=== PATIENT | male | born 1955 | race Caucasian/White ===

== ENCOUNTER 2022-08-07 17:18 | Emergency (ER) | payer BC, SELFPAY ==
[2022-08-07 17:27] VITALS: BP 122/62; PULSE 69; RESP 20; TEMP 36.7; O2SAT 97; BMI 31.8
--- NOTE | 2022-08-07 17:36 | XR_ITS ---
[address] [address] Patient Name: MALOU DUBON MRN: [id number] date: 1955 Sex: M Assigned Patient Location: ER Current Patient Location: ER Accession/Order Number: [id number] Exam Date: 08/07/2022 18:20 Report Date: 08/07/2022 18:45 At the request of: SHEFALI STRICKLAND Procedure: XR tibia fibula RT 2V EXAM: XR tibia fibula RT 2V HISTORY: Pain from changing a tire COMPARISON: None. TECHNIQUE: 4 views FINDINGS: No osseous lesion, fracture, dislocation or subluxation. Joint spaces are unremarkable for patient's age. No visualized effusion. No visualized soft tissue edema. IMPRESSION: Normal x-rays Electronically authenticated by: ERICK PARISI Date: 08/07/2022 18:45
--- NOTE | 2022-08-07 18:07 | ED_ITS ---
HPI - Extremity Injury (Lower) General Chief Complaint: Extremity Injury, Lower Stated Complaint: POSS BROKEN LEG Time Seen by Provider: 08/07/22 18:06 Source: patient Mode of arrival: Wheelchair Limitations: no limitations History of Present Illness HPI Narrative: Patient presents to emergency department complaining of right lower leg pain. He states he was putting all his weight on his right lower leg trying to change a tire when he fell a snap to the medial mid calf. He states in stating he has been able to put any weight on it he heard a snap and has a lot of pain when he hyperflexed his his foot. Denies any paresthesias. He has not taking anything at home for pain. He denies any weakness. He's never had any injury like this before. Related Data Home Medications Medication Instructions Recorded Confirmed doxycycline hyclate 100 mg capsule 100 mg PO Q24H 08/07/22 08/07/22 fluoxetine 20 mg tablet 20 mg PO DAILY 08/07/22 08/07/22 metoprolol tartrate 50 mg tablet 50 mg PO DAILY 08/07/22 08/07/22 topiramate 50 mg tablet 50 mg PO .night time 08/07/22 08/07/22 warfarin 5 mg tablet 5 mg PO DAILY 08/07/22 08/07/22 Allergies Allergy/AdvReac Type Severity Reaction Status Date / Time Unable to Assess Allergy Verified 08/07/22 17:27 Review of Systems ROS Narrative Unless otherwise stated in this report or unable to obtain because of the patient's clinical or mental status as evidenced by medical record, the patient's positive and negative responses for review of systems for constitutional, eyes, ENT, cardiovascular, respiratory, gastrointestinal, neurological, , musculoskeletal, and integument systems and related systems to the presenting problem are either stated in the history of present illness or were not pertinent or were negative for the symptoms and/or complaints related to the presenting medical problem. [facility] Social History Smoking status: Former smoker Exam Narrative Exam Narrative: Vital signs reviewed and nurse's notes. The patient is not hypoxic. General: Alert, no acute distress, patient resting comfortably Skin: warm, intact, no pallor noted Head: Normocephalic, atraumatic Eye: Normal conjunctiva Respiratory: No acute distress Musculoskeletal: No evidence of deformity to the R knee. There is Mild amount of swelling. There is no ecchymosis. No erythema or warmth noted. DP and PT pulses are intact 2+. Normal sensation, normal capillary refill less than 2 seconds. There is no cyanosis or mottling noted. The patient Does not have any tenderness to of the right knee. The patient has no laxity with varus or valgus stressing. The patient has negative anterior drawer and Reynaldo testing. The patient was able to flex and extend although with pain. Patient was able to extend leg off the cart without difficulty. No tenderness noted to the 5th MT, midfoot, ankle or proximal fibular area. There is no pain with calcaneal squeeze, achilles tendon is intact and no defect is palpated. There is tenderness to palpation to the mid over the medial mid gastrocnemius muscle. No cough asymmetry, range of motion limited by pain. The patient has no pelvic instability. The patient has no shortening or rotation noted to the bilateral lower extremities. Neurological: alert and orient x4, normal sensory and motor observed. Psychiatric: Cooperative Constitutional Vital Signs - 24 hr 08/07/22 17:27 Temperature 98.1 F Pulse Rate [Monitor] 69 Respiratory Rate 20 Blood Pressure [Right Arm] 122/62 H Pulse Oximetry 97 Oxygen Delivery Method Room Air Course Vital Signs Vital signs: Vital Signs Temperature 98.1 F 08/07/22 17:27 Pulse Rate 69 08/07/22 17:27 Respiratory Rate 20 08/07/22 17:27 Blood Pressure 122/62 H 08/07/22 17:27 Pulse Oximetry 97 08/07/22 17:27 Oxygen Delivery Method Room Air 08/07/22 17:27 Temperature 98.1 F 08/07/22 17:27 Pulse Rate 69 08/07/22 17:27 Respiratory Rate 20 08/07/22 17:27 Blood Pressure 122/62 H 08/07/22 17:27 Pulse Oximetry 97 08/07/22 17:27 Oxygen Delivery Method Room Air 08/07/22 17:27 MDM - Extremity Injury (Lower) MDM Narrative Medical decision making narrative: Patient had tibia-fibula of the right lower extremity done and is negative interpreted by me. Patient was placed in a compression wrap and was advised to use crutches. History and exam are consistent with the gastrocnemius muscle strain versus tear. Patient was given a prescription for [place]. He was given 1 more: The emergency department and it helped his symptoms. He will follow up with podiatry, primary care doctor, and orthopedic. He is to return with any other problems or concerns. At this time the patient is without objective evidence of an acute process requiring hospitalization or inpatient management. The patient has remained hemodynamically stable. No additional indication for emergent studies at this time. I answered all questions. Discussed discharge instructions including standard anticipatory guidance and what should prompt a return to the emergency department, including if they get worse are not getting better or develops any new or concerning symptoms. I've given them specific time frame in which to follow-up, and who to follow-up with. The patient demonstrates understanding. Patient is nontoxic and stable for discharge with outpatient follow-up. This note was created with the assistance of a speech recognition program. Although the intention is to generate documents that actually reflects the content of the visit, no guarantees can be provided that every mistake has been identified and corrected by editing. Discharge Plan Discharge Chief Complaint: Extremity Injury, Lower Clinical Impression: Gastrocnemius muscle rupture Patient Disposition: Home, Self-Care Time of Disposition Decision: 18:57 Condition: Good Mode of Transportation: Private Vehicle Prescriptions / Home Meds: No Action doxycycline hyclate 100 mg capsule 100 mg PO Q24H fluoxetine 20 mg tablet 20 mg PO DAILY metoprolol tartrate 50 mg tablet 50 mg PO DAILY topiramate 50 mg tablet 50 mg PO .night time warfarin 5 mg tablet 5 mg PO DAILY Instructions: Muscle Strain (ED) Stand Alone Forms: Portal Instructions Referrals: Bailey Hines MD [Primary Care Provider] - 1 week Rubio Valdovinos MD [Physician] - 1 week Follow Up Appointments: ORTHO Discharge Date/Time: 08/07/22 19:54
[2022-08-07] MEDS: HYDROCODONE/ACETAMINOPHEN 5-325 MG TABLET 1 TAB PO (18:37)
[2022-08-07 19:50] VITALS: BP 118/61; PULSE 62; RESP 18; O2SAT 97
== END 2022-08-07 19:54 | disposition home or self-care (01) ==
PROVIDERS: Emergency Provider Emergency Medicine; PCP Specialist
DX: S86.811A Strain of other muscle(s) and tendon(s) at lower leg level, right leg, initial encounter (principal); X50.9XXA Other and unspecified overexertion or strenuous movements or postures, initial encounter; Z87.891 Personal history of nicotine dependence; Z79.01 Long term (current) use of anticoagulants; Z79.899 Other long term (current) drug therapy
CPT/HCPCS: 73590; 99283

== ENCOUNTER 2022-08-10 18:34 | Outpatient (RCR) | payer BC, MEDICAID, SELFPAY | END 2022-09-03 23:59 | disposition home or self-care (01) | LOC: MM 18:34 | PROVIDERS: PCP Internal Medicine; Visit Provider Internal Medicine | DX: Z51.81 Encounter for therapeutic drug level monitoring (principal); Z79.01 Long term (current) use of anticoagulants ==

== ENCOUNTER 2022-09-09 09:53 | Outpatient (RCR) | payer BC, MEDICAID, SELFPAY | END 2022-10-04 17:07 | disposition home or self-care (01) | LOC: MM 09:53 | PROVIDERS: PCP Internal Medicine; Visit Provider Internal Medicine | DX: Z51.81 Encounter for therapeutic drug level monitoring (principal); Z79.01 Long term (current) use of anticoagulants ==

== ENCOUNTER 2022-10-05 09:36 | Outpatient (RCR) | payer BC, MEDICAID, SELFPAY | END 2022-11-04 17:41 | disposition home or self-care (01) | LOC: MM 09:36 | PROVIDERS: PCP Internal Medicine; Visit Provider Internal Medicine | DX: Z51.81 Encounter for therapeutic drug level monitoring (principal); Z79.01 Long term (current) use of anticoagulants | CPT/HCPCS: 85610; G0463 ==

== ENCOUNTER 2022-11-05 09:04 | Outpatient (RCR) | payer MEDICARE, MEDICAID, SELFPAY | END 2022-12-03 16:59 | disposition home or self-care (01) | LOC: MM 09:04 | PROVIDERS: PCP Internal Medicine; Visit Provider Internal Medicine | DX: Z51.81 Encounter for therapeutic drug level monitoring (principal); Z79.01 Long term (current) use of anticoagulants | CPT/HCPCS: 85610; G0463 ==

== ENCOUNTER 2022-12-06 02:59 | Outpatient (RCR) | payer MEDICARE, MEDICAID, SELFPAY | END 2023-01-04 17:45 | disposition home or self-care (01) | LOC: MM 02:59 | PROVIDERS: PCP Internal Medicine; Visit Provider Internal Medicine | DX: Z51.81 Encounter for therapeutic drug level monitoring (principal); Z79.01 Long term (current) use of anticoagulants ==

== ENCOUNTER 2023-01-05 00:26 | Outpatient (RCR) | payer MEDICARE, MEDICAID, SELFPAY | END 2023-02-03 16:51 | disposition home or self-care (01) | LOC: MM 00:26 | PROVIDERS: PCP Internal Medicine; Visit Provider Internal Medicine | DX: Z51.81 Encounter for therapeutic drug level monitoring (principal); Z79.01 Long term (current) use of anticoagulants ==

== ENCOUNTER 2023-02-04 09:37 | Outpatient (RCR) | payer MEDICARE, MEDICAID, SELFPAY | END 2023-03-04 15:20 | disposition home or self-care (01) | LOC: MM 09:37 | PROVIDERS: PCP Internal Medicine; Visit Provider Internal Medicine | DX: Z51.81 Encounter for therapeutic drug level monitoring (principal); Z79.01 Long term (current) use of anticoagulants ==

== ENCOUNTER 2023-03-07 02:05 | Outpatient (RCR) | payer MEDICARE, MEDICAID, SELFPAY | END 2023-04-06 17:04 | disposition home or self-care (01) | LOC: MM 02:05 | PROVIDERS: PCP Internal Medicine; Visit Provider Internal Medicine | DX: Z51.81 Encounter for therapeutic drug level monitoring (principal); Z79.01 Long term (current) use of anticoagulants ==

== ENCOUNTER 2023-04-07 00:52 | Outpatient (RCR) | payer MEDICARE, MEDICAID, SELFPAY | END 2023-05-05 17:33 | disposition home or self-care (01) | LOC: MM 00:52 | PROVIDERS: PCP Internal Medicine; Visit Provider Internal Medicine | DX: Z51.81 Encounter for therapeutic drug level monitoring (principal); Z79.01 Long term (current) use of anticoagulants ==

== ENCOUNTER 2023-05-06 03:39 | Outpatient (RCR) | payer MEDICARE, MEDICAID, SELFPAY | END 2023-06-03 14:16 | disposition home or self-care (01) | LOC: MM 03:39 | PROVIDERS: PCP Internal Medicine; Visit Provider Internal Medicine | DX: Z51.81 Encounter for therapeutic drug level monitoring (principal); Z79.01 Long term (current) use of anticoagulants ==

== ENCOUNTER 2023-06-06 03:30 | Outpatient (RCR) | payer MEDICARE, MEDICAID, SELFPAY | END 2023-07-05 18:04 | disposition home or self-care (01) | LOC: MM 03:30 | PROVIDERS: PCP Internal Medicine; Visit Provider Internal Medicine | DX: Z51.81 Encounter for therapeutic drug level monitoring (principal); Z79.01 Long term (current) use of anticoagulants ==

== ENCOUNTER 2023-07-06 04:39 | Outpatient (RCR) | payer MEDICARE, MEDICAID, SELFPAY | END 2023-08-05 12:01 | disposition home or self-care (01) | LOC: MM 04:39 | PROVIDERS: PCP Internal Medicine; Visit Provider Internal Medicine | DX: Z51.81 Encounter for therapeutic drug level monitoring (principal); Z79.01 Long term (current) use of anticoagulants ==

== ENCOUNTER 2023-07-26 08:20 | Outpatient (OUT) | payer MEDICARE, MEDICAID, SELFPAY ==
--- NOTE | 2023-07-26 08:26 | XR_ITS ---
The [address] [address] Patient Name: MALOU DUBON MRN: [id number] date: 1955 Sex: M Assigned Patient Location: [facility] Current Patient Location: Accession/Order Number: [id number] Exam Date: 07/26/2023 08:30 Report Date: 07/27/2023 05:36 At the request of: NIMESH BURT Procedure: XR ribs RT min 3V w CXR1V EXAMINATION: XR ribs RT min 3V w CXR1V HISTORY: Rib Pain ; chronic lower right rib pain COMPARISON: No relevant comparison available. FINDINGS: LUNGS: No significant pulmonary parenchymal abnormalities. PLEURA: No pneumothorax, effusion, or pleural thickening. MEDIASTINUM: No visible mass or adenopathy. CARDIAC: No cardiomegaly or cardiac silhouette abnormality. RIBS: No fracture or bone lesion. OTHER: Negative. XR/XR ribs RT min 3V w CXR1V IMPRESSION: 1. No appreciable rib abnormality to account for patient's symptoms. 2. No suspicious lung findings. Electronically authenticated by: ALECIA GOODSON Date: 07/27/2023 05:36
--- OUTSIDE RECORDS SUMMARY | 2023-07-26 08:26 | XMS_ITS | CCD ---
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:12 7 Normal [facility] Consultation Noteon 11-19-19 Consultation Note [id number]:127 Normal [facility] Consultation Noteon 10-24-19 Consultation Note [id number]:12 7 Normal [facility] Physician Referralon 023 Physician Referral [id number]:1 27 Normal [facility] Family Medicine Office/Clini c Noteon 08-17-2022 Family Medicine Office/Clinic Note HPI Staff Malou is a 66 year old male here for ER follow up/ Establish Establish Care: History: Any previous diagnosis: depression, HTN, migraines, asthma, Chronic sinusitis, PE bilateral lungs History of seeing any specialist: no When was your last doctors visit: Last provider: Dr Hines Any recent labs: Health Maintenance UTD: Colonoscopy: PSA: Acute: Current issues/complaints: ER 08/07/22 [place] follow up..was working on changing tire putting all off his weight on right leg and felt burning. pain 10/14 has been taking tylenol History of Present Illness pt presents today for ER follow up. he was putting all of his weight trying loosen a bolt and he felt a pop and had extreme pain and burning on Tuesday. ER did xray and sent him home. Review of Systems PHQ Score Initial Depression Screen Score: 0 ROS - Provider Constitutional: no fever, no chills, no sweats, no fatigue Respiratory: no shortness of breath, no cough, no orthopnea, no wheezing. Cardiovascular: no chest pain, no palpitations, no edema. Neurologic: no headache, no dizziness, no numbness, no weakness. extremities: right leg pain Physical Exam Vitals & Measurements HR: 55(Peripheral) BP: 122/80 SpO2: 97% HT: 64 in HT: 161.3 cm WT: 83.2 kg WT: 183.04 lb BMI: 31.98 General: alert, no acute distress ENMT: oral mucosa moist, no pharyngeal erythema or exudate Cardiovascular: regular rate and rhythm, normal peripheral perfusion Respiratory: Lungs CTA, respirations non labored Extremities: no deformity, moderate trauma, right calf pain, swelling and bruising noted, severe pain when lightly touching calf Neurological: oriented x 4, LOC appropriate for age, CN II-XII intact, motor strength equal & normal bilaterally, speech normal Assessment/Plan 1. Pressure injury of right calf, unstageable (L89.890: Pressure ulcer of other site, unstageable) pt was putting all of his weight on his right leg trying to get a bolt loose. he felt a pop then had severe pain and burning so much that he saw stars and almost passed out. [facility] ER did xray and sent him home with norco but he does not take narcotics due to history of drug use and alcoholism. Dr. Johnson assessed his leg and pain and called [facility] to rule out blood clot since pt is on warfarin and has been immobile. Would also like to have MRI done as well. Pt takes pt to [facility] at end of visit. will have him return to office in 1 week for follow up. 2. Right calf pain (M79.661: Pain in right lower leg) see above. 3. BMI 32.0-32.9,adult (Z68.32: Body mass index [BMI] 32.0-32.9, adult) bmi education complete Follow-up No qualifying data available Problem List/Past Medical History Ongoing BMI 32.0-32.9,adult Historical No qualifying data Medications Albuterol (Eqv-Ventolin HFA) 90 mcg/inh inhalation aerosol desonide Top 0.05% Crm doxycycline hyclate 100 mg Cap, 100 mg= 1 cap(s), Oral, Daily famotidine 20 mg Tab, 20 mg= 1 tab(s), Oral, Daily fluoxetine 20 mg oral tablet, 20 mg= 1 tab(s), Oral, Daily Metoprolol tartrate 50 mg Tab, 50 mg= 1 tab(s), Oral, Daily topiramate 50 mg Tab, 50 mg= 1 tab(s), Oral, Daily warfarin 5 mg Tab, 5 mg= 1 tab(s), Oral, Daily Allergies Ceftin (Rash) Social History Alcohol - No Risk, 08/10/2022 Household alcohol concerns: No., 08/10/2022 Substance Abuse Tobacco - No Risk, 08/10/2022 Former smoker, quit more than 30 days ago Tobacco Use:. Household tobacco concerns: No., 08/10/2022 Family History Alcoholism: Father. Cancer: Brother. Primary malignant neoplasm of bone: Mother. Normal [facility] Comment on above: Result Comment: Elec tronically Signed By: Evi Nair.alvina\Date and Time Signed: 08/17/22 09:12 EDT ED Note-Physicianon 08-15-19 ED Note-Physician Basic Information Time Seen: Roxana MONTANO Anish 08/10/2022 14:57 Chief Complaint pt. had R foot injury Tuesday while he was working on a car, xr at [facility] for fracture. states pain and swelling have increased. Dr. Johnson referred pt. here. History of Present Illness 66-year-old male comes to the ED for evaluation of right leg pain. He states a couple of days ago he was changing a light not on alcohol when he pressed up on his right foot and suddenly felt pain to the posterior right ankle area. He states he had negative x-rays performed at an outside ED. He followed up with his PCP today and is concerned for DVT. He does have a history of PE and is currently on anticoagulation, though reportedly he has been known to be noncompliant with this. He points to the Achilles area as the area of tenderness. He has difficulty with weightbearing he does have crutches that he has been utilizing. He has no acute weakness or paresthesias. No other prior treatments. He states he is taking Tylenol for pain. Review of Systems A 10 point review of systems is negative except as noted above. Medical and Surgical History: Reviewed and noted Social history: Lives at home Tobacco: Denies Physical Exam Vitals & Measurements T: 36.7 ?C(Oral) HR: 55(Peripheral) RR: 18 BP: 127/82 SpO2: 99% HT: 160 cm WT: 84 kg BMI: 32.81 Nurses notes and vital signs reviewed and patient is not hypoxic. General: The patient appears well, resting comfortably. Skin: Warm, dry. Head: Atraumatic. Neck: No JVD. Eye: Normal conjunctiva. Ears, Nose, Mouth, and Throat: Moist mucous membranes. Cardiovascular: Strong distal pulses. Chest wall: Respiratory: Respirations are nonlabored. Back: Normal range of motion. Musculoskeletal: Tenderness along the Achilles tendon without gross deformity. There is no soft tissue swelling ecchymosis or erythema. Perry test is normal with good movement of the tendon, however this does cause significant pain. He has strong distal pulses. Gastrointestinal: Urological: Neurological: Awake and alert. No focal deficits. Follows commands. Psychiatric: Cooperative. Medical Decision Making X-rays with no acute findings. Ultrasound is negative for evidence of DVT. His exam is concerning for Achilles tendon injury versus muscular calf injury. He already has crutches and is placed in a walking boot. At his request is given Ultram for pain. Overall he is neurovascular intact. There is no evidence of infectious process. He is discharged with orthopedic referral. Patient was encouraged to return to the ED if symptoms worsen or change. Assessment/Plan Achilles tendinitis (M76.60: Achilles tendinitis, unspecified leg) Ordered: tramadol, 50 mg = 1 tab(s), Oral, q6hr, PRN as needed for pain, Take one tab by mouth every six hours as needed for pain, X 3 day(s), # 15 tab(s), Refills(s) 0, Pharmacy: [facility], 160, cm, 08/10/22 15:02:00 EDT, Height/Length Dosing, 84, kg,... Orders: tramadol, 100 mg = 2 tab(s), Tab, Oral, Once, Stop date 08/10/22 15:08:00 EDT, STAT, Start date 08/10/22 15:08:00 EDT, 08/10/22 15:08:00 EDT Surgical Boot US LE Venous Duplex Right XR Ankle 3+ Views Right Medications Administered Given Ultram 50 mg Tab, 100 mg, Oral Disposition Plan Patient Discharge Condition Disposition: Discharged home Condition: Improved and stable Counseled: Patient and/or family were counseled to workup, results, treatment plan and follow-up recommendations Discharge Prescription List Prescriptions Ultram 50 mg Tab, 50 mg= 1 tab(s), Oral, q6hr, PRN Follow-up With [facility] Contact Information Flip Hidalgo In 3 days 08/13/[address] [place] [phone] Business (1) Additional Instructions: Patient Education Achilles Tendinitis Attestation Patient seen and evaluated by the physician assistant store director. Attending physician was present in the emergency department and supervised care. This visit was performed by both the physician and an APC. I performed all aspects of the MDM as documented. This report was transcribed using voice recognition software. Every effort was made to ensure accuracy, however, inadvertently computerized installation helper mistakes may be present. Appropriate healthcare PPE was used in evaluating this patient. The patient was placed in a mask. The healthcare provider was wearing mask, gloves, and utilizing proper hand hygiene. All equipment was properly cleansed. Problem List/Past Medical History Ongoing No qualifying data Historical No qualifying data Medications Inpatient No active inpatient medications Home Albuterol (Eqv-Ventolin HFA) 90 mcg/inh inhalation aerosol desonide Top 0.05% Crm doxycycline hyclate 100 mg Cap, 100 mg= 1 cap(s), Oral, Daily famotidine 20 mg Tab, 20 mg= 1 tab(s), Oral, Daily fluoxetine 20 mg oral tablet, 20 mg= 1 tab(s), Oral, Daily Metoprolol tartrate 50 mg Tab, 50 mg= 1 tab(s), Oral, Daily topiramat (more content not included)... Normal [facility] Comment on above: Result Comment: Elec tronically Signed By: Anish Schmidt PA-C\.br\Date and Time Signed: 08/10/22 16:36 EDT\.br\Electronically Co-Signed By: Denver Valadez DO\.br\Date and Time Co-Signed: 08/14/22 07:33 EDT Ambulatory Visit Summaryon 0 08-10-2022 Ambulatory Visit Summary MALOU DUBON :1955 Visit Date:08/10/2022 Ambulatory Visit Instructions Your Care Team Attending Physician - Evi Nair Primary Care Physician - Yogesh Johnson MD This Is Your Medications List albuterol (Albuterol (Eqv-Ventolin HFA) 90 mcg/inh inhalation aerosol) desonide topical (desonide Top 0.05% Crm) doxycycline (doxycycline hyclate 100 mg Cap) famotidine (famotidine 20 mg Tab) fluoxetine (fluoxetine 20 mg oral tablet) metoprolol (Metoprolol tartrate 50 mg Tab) topiramate (topiramate 50 mg Tab) warfarin (warfarin 5 mg Tab) Discharge Vitals Heart Rate (Peripheral) 55 Blood Pressure 122/80 Height 161.3 cm Height 64 in Weight 83.2 kg Weight 183.04 lb BMI 31.98 Medications What How Much When Instructions Unchanged albuterol (Albuterol (Eqv-Ventolin HFA) 90 mcg/ inh inhalation aerosol) Unchanged desonide topical (desonide Top 0.05% Crm) Unchanged doxycycline (doxycycline hyclate 100 mg Cap) 1 Capsules By Mouth Every day Unchanged famotidine (famotidine 20 mg Tab) 1 Tablets By Mouth Every day Unchanged fluoxetine (fluoxetine 20 mg oral tablet) 1 Tablets By Mouth Every day Unchanged metoprolol (Metoprolol tartrate 50 mg Tab) 1 Tablets By Mouth Every day Unchanged topiramate (topiramate 50 mg Tab) 1 Tablets By Mouth Every day Unchanged warfarin (warfarin 5 mg Tab) 1 Tablets By Mouth Every day Allergies Ceftin (Rash) [facility] Ambulatory Visit Summary MALOU DUBON :1955 Visit Date:08/10/2022 Ambulatory Visit Instructions Your Care Team Attending Physician - Evi Nair Primary Care Physician - Alex REINA, Yogesh Jackson. This Is Your Medications List albuterol (Albuterol (Eqv-Ventolin HFA) 90 mcg/inh inhalation aerosol) desonide topical (desonide Top 0.05% Crm) doxycycline (doxycycline hyclate 100 mg Cap) famotidine (famotidine 20 mg Tab) fluoxetine (fluoxetine 20 mg oral tablet) metoprolol (Metoprolol tartrate 50 mg Tab) topiramate (topiramate 50 mg Tab) warfarin (warfarin 5 mg Tab) Discharge Vitals Heart Rate (Peripheral) 55 Blood Pressure 122/80 Height 161.3 cm Height 64 in Weight 83.2 kg Weight 183.04 lb BMI 31.98 Medications What How Much When Instructions Unchanged albuterol (Albuterol (Eqv-Ventolin HFA) 90 mcg/ inh inhalation aerosol) Unchanged desonide topical (desonide Top 0.05% Crm) Unchanged doxycycline (doxycycline hyclate 100 mg Cap) 1 Capsules By Mouth Every day Unchanged famotidine (famotidine 20 mg Tab) 1 Tablets By Mouth Every day Unchanged fluoxetine (fluoxetine 20 mg oral tablet) 1 Tablets By Mouth Every day Unchanged metoprolol (Metoprolol tartrate 50 mg Tab) 1 Tablets By Mouth Every day Unchanged topiramate (topiramate 50 mg Tab) 1 Tablets By Mouth Every day Unchanged warfarin (warfarin 5 mg Tab) 1 Tablets By Mouth Every day Allergies Ceftin (Rash) Normal [facility] Consent for Treatmenton Consent for Treatment [id number]:12 7 Normal [facility] Discharge Instructionson Discharge Instructions [id number]#1.00CD:12 7 Normal [facility] ED Clinical Summaryon 2022 ED Clinical Summary [address] [address] ED Clinical Summary Person [facility] Age[facility] 66 Years : 1955 Sex: Male Language: Trinidadian PCP: Yogesh Johnson MD Marital Status: Visit Id: Visit Reason: Ankle pain-swelling; Foot pain-swelling; FOOT PAIN Speciality: Acuity: 4 Enc Type: Emergency Med Service: Emergency Arrival: 08/10/2022 14:52:37 Discharge: 08/10/2022 16:51:29 LOS: 000 01:59 Checkin: 08/10/2022 14:52:37 Checkout: 08/10/2022 16:51:29 Dispo Type: Home (Routine DC) EVENTS: Event Name Event Status Request Date/Time Start Date/Time Complete Date/Time Arrive Complete 08/10/2022 14:52:37 08/10/2022 14:52:37 08/10/2022 14:52:37 Document Home Meds Request 08/10/2022 14:52:37 Triage Complete 08/10/2022 14:52:37 08/10/2022 15:02:39 08/10/2022 15:02:39 Bed Assign Complete 08/10/2022 14:55:54 08/10/2022 14:55:54 08/10/2022 14:55:54 Dr Exam Complete 08/10/2022 14:55:54 08/10/2022 14:57:48 08/10/2022 14:57:48 RN Exam Complete 08/10/2022 14:55:54 08/10/2022 15:05:31 08/10/2022 15:05:31 Registration Complete 08/10/2022 14:57:48 08/10/2022 15:03:49 08/10/2022 15:03:49 Dr Exam Complete 08/10/2022 15:01:18 08/10/2022 15:01:18 08/10/2022 15:01:18 Reg Complete Request 08/10/2022 15:03:49 US Complete 08/10/2022 15:09:09 08/10/2022 15:18:40 08/10/2022 15:49:14 X-Ray Complete 08/10/2022 15:09:09 08/10/2022 15:49:26 08/10/2022 15:58:35 Meds Admin Complete 08/10/2022 15:09:09 08/10/2022 15:17:54 Wet Read Complete 08/10/2022 15:58:35 08/10/2022 16:14:40 08/10/2022 16:14:40 Patient Care Complete 08/10/2022 16:32:57 08/10/2022 16:50:07 Discharge Complete 08/10/2022 16:33:12 08/10/2022 16:51:34 08/10/2022 16:51:34 Transfer Complete 08/10/2022 16:51:34 08/10/2022 16:51:34 08/10/2022 16:51:34 ADDRESS: [facility] [id number] PHYS DOC NOTES: MEDICAL INFORMATION: Prescriptions Given: New Medications [facility], [address] [place] [id number], [phone] tramadol (Ultram 50 mg Tab) 1 Tablets By Mouth every 6 hours as needed as needed for pain for 3 Days. Take one tab by mouth every six hours as needed for pain. Refills: 0. PATIENT EDUCATION INFORMATION: Instructions: Achilles Tendinitis Follow up: With: Address: When: Flip Hidalgo [address] [place], [place] [id number] Business (1) In 3 days 08/13/2022 DIAGNOSIS: Achilles tendinitis Normal [facility] ED Patient Education Noteon 08-10-2022 ED Patient Education Note Orthopedics Achilles Tendinitis Achilles tendinitis is inflammation of the tough, cord-like band that attaches the lower leg muscles to the heel bone (Achilles tendon). This is usually caused by overusing the tendon and the ankle joint. Achilles tendinitis usually gets better over time with treatment and caring for yourself at home. It can take weeks or months to heal completely. What are the causes? This condition may be caused by: ? A sudden increase in exercise or activity, such as running. ? Doing the same exercises or activities, such as jumping, over and over. ? Not warming up calf muscles before exercising. ? Exercising in shoes that are worn out or not made for exercise. ? Having arthritis or a bone growth (spur) on the back of the heel bone. This can rub against the tendon and hurt it. ? Age-related wear and tear. Tendons become less flexible with age and are more likely to be injured. What are the signs or symptoms? Common symptoms of this condition include: ? Pain in the Achilles tendon or in the back of the leg, just above the heel. The pain usually gets worse with exercise. ? Stiffness or soreness in the back of the leg, especially in the morning. ? Swelling of the skin over the Achilles tendon. ? Thickening of the tendon. ? Trouble standing on tiptoe. How is this diagnosed? This condition is diagnosed based on your symptoms and a physical exam. You may have tests, including: ? X-rays. ? MRI. How is this treated? The goal of treatment is to relieve symptoms and help your injury heal. Treatment may include: ? Decreasing or stopping activities that caused the tendinitis. This may mean switching to low-impact exercises like biking or swimming. ? Icing the injured area. ? Doing physical therapy, including strengthening and stretching exercises. ? Taking NSAIDs, such as ibuprofen, to help relieve pain and swelling. ? Using supportive shoes, wraps, heel lifts, or a walking boot (air cast). ? Having surgery. This may be done if your symptoms do not improve after other treatments. ? Using high-energy shock wave impulses to stimulate the healing process (extracorporeal shock wave therapy). This is rare. ? Having an injection of medicines that help relieve inflammation (corticosteroids). This is rare. Follow these instructions at home: If you have an air cast: ? Wear the air cast as told by your health care provider. Remove it only as told by your health care provider. ? Loosen it if your toes tingle, become numb, or turn cold and blue. ? Keep it clean. ? If the air cast is not waterproof: ? Do not let it get wet. ? Cover it with a watertight covering when you take a bath or shower. Managing pain, stiffness, and swelling ? If directed, put ice on the injured area. To do this: ? If you have a removable air cast, remove it as told by your health care provider. ? Put ice in a plastic bag. ? Place a towel between your skin and the bag. ? Leave the ice on for 20 minutes, 2?3 times a day. ? Move your toes often to reduce stiffness and swelling. ? Raise (elevate) your foot above the level of your heart while you are sitting or lying down. Activity ? Gradually return to your normal activities as told by your health care provider. Ask your health care provider what activities are safe for you. ? Do not do activities that cause pain. ? Consider doing low-impact exercises, like cycling or swimming. ? Ask your health care provider when it is safe to drive if you have an air cast on your foot. ? If physical therapy was prescribed, do exercises as told by your health care provider or physical therapist. General instructions ? If directed, wrap your foot with an elastic bandage or other wrap. This can help to keep your tendon from moving too much while it heals. Your health care provider will show you how to wrap your foot correctly. ? Wear supportive shoes or heel lifts only as told by your health care provider. ? Take ijox-let-ymbggam and prescription medicines only as told by your health care provider. ? Keep all follow-up visits as told by your health care provider. This is important. Contact a health care provider if you: ? Have symptoms that get worse. ? Have pain that does not get better with medicine. ? Develop new, unexplained symptoms. ? Develop warmth and swelling in your foot. ? Have a fever. Get help right away if you: ? Have a sudden popping sound or sensation in your Achilles tendon followed by severe pain. ? Cannot move your toes or foot. ? Cannot put any weight on your foot. ? Your foot or toes become numb and look white or blue even after loosening your bandage or air cast. Summary ? Achilles tendinitis is inflammation of the tough, cord-like band that attaches the lower leg muscles to the heel bone (Achilles tendon). ? This condition is usually caused by overusing the tendon and the (more content not included)... Normal [facility] ED Patient Summaryon 023 ED Patient Summary [facility] [address] [place], [place] [address] Patient Discharge Instructions Person Information Name: MALOU DUBON Age: 66 Years Arrival Date: 08/10/2022 14:52:37 Discharge Diagnosis: Achilles tendinitis Primary Care Physician: Yogesh Johnson MD Provider Information Primary Provider: Denver Valadez DO Advanced Roving Carrier:Anish Schmidt PA-C The exam and treatment you received in the Emergency Department were for an urgent problem and are not intended as complete care. It is important that you follow up with a doctor, nurse practitioner, or physician?s assistant store director for ongoing care. If your symptoms become worse or you do not improve as expected and you are unable to reach your usual health care provider, you should return to the Emergency Department. We are available 24 hours a day. MALOU DUBON has been given the following list of patient education materials, prescriptions and follow-up instructions: Follow-up Instructions: With: Address: When: Flip Hidalgo [address] [place] [address] Business (1) In 3 days 08/13/2022 In the event that this physician does not participate in your insurance network, please consult with your insurance company to find a nearby participating provider. Patient Education Materials: Achilles Tendinitis A MESSAGE TO ALL PATIENTS REGARDING OPIOIDS PRESCRIPTION OPIOIDS: WHAT YOU NEED TO KNOW Prescription opioids can be used to help relieve rwdbsxwi-rt-otrvlj pain and are often prescribed following a surgery or injury, or for certain health conditions. These medications can be an important part of the treatment but also come with serious risks. It is important to work with your healthcare provider to make sure you are getting the safest, most effective care. WHAT ARE THE RISKS AND SIDE EFFECTS OF OPIOID USE? Prescription opioids carry serious risks of addiction and overdose, especially with prolonged use. An opioid overdose, often marked by slowed breathing, can cause sudden . The use of prescription opioids can have a number of side effects as well, even when taken as directed: ? Tolerance?meaning you might need to take more of the medication for the same pain relief ? Physical dependence?meaning you have symptoms of withdrawal when a medication is stopped ? Increased sensitivity to pain ? Constipation ? Nausea, vomiting, and dry mouth ? Sleepiness and dizziness ? Confusion ? Depression ? Low levels of testosterone that can result in lower sex drive, energy, and strength ? Itching and sweating RISKS ARE GREATER WITH: ? History of drug misuse, substance use disorder, or overdose ? Mental health conditions (such as depression or anxiety) ? Sleep apnea ? Older age (65 years and older) ? Avoid alcohol while taking prescription opioids. Also, unless specifically advised by your health care provider, medications to avoid include: ? Benzodiazepines (such as Xanax or Valium) ? Muscle relaxants (such as Soma or Flexeril) ? Hypnotics (such as Ambien or Lunesta) ? Other prescription opioids KNOW YOUR OPTIONS Talk to your health care provider about ways to manage your pain that don?t involve prescription opioids. Some of these options may actually work better and have fewer risks and side effects. Options may include: ? Pain relievers such as acetaminophen, ibuprofen, and naproxen ? Some medication that are also used for depression or seizures ? Physical therapy and exercise ? Cognitive behavioral therapy, a psychological, goal-directed approach, in which patients learn how to modify physical, behavioral, and emotional triggers of pain and stress. IF YOU ARE PRESCRIBED OPIOIDS FOR PAIN: ? Never take opioids in greater amounts or more often than prescribed. ? Follow up with your primary health care provider. o Work together to create a plan on how to manage your pain. o Talk about ways to help manage your pain that don?t involve prescription opioids. o Talk about any and all concerns and side effects. ? Help prevent misuse and abuse o Never sell or share prescription opioids. o Never use another person?s prescription opioids. ? Store prescription opioids in a secure place and out of reach of others (this may include visitors, children, friends, and family). ? Safely dispose of unused prescription opioids: Find your community drug take-back program or your pharmacy mail-back program, or flush them down the toilet, following guidance from the Food and Drug Administration (www.fda.gov/Drugs/Resour cesForYou). ? Visit www.cdc.gov/drugoverdose to learn about the risks of opioids abuse and overdose. ? If you believe you may be struggling with addiction, tell your health healthcare associate and ask for guidance or call [facility] National Helpline at 5-033-167-PSCA. m Source: Department of (more content not included)... Normal [facility] Pre-Arrival Noteon Pre-Arrival Note Pre-Arrival Summary Name: ulisses, Current Date: 08/10/2022 14:57:13 EDT Gender: Male Date of : Age: 66 Pre-Arrival Type: EMS ETA: 08/10/2022 14:51:00 EDT Primary Care Physician: Presenting Problem: leg pain Pre-Arrival User: Denver Valadez DO Referring Source: Location: [place] Completion Date/Time: 08/10/2022 14:22:00 [facility] Emergency Department Pre-Hospital Report Form ____ Vital Signs: pop in R calf, [facility] Xray negative, wrapped leg, now increased pain, supposed to be on coumadin (Hx of PE), needs US of calf, maybe repeat xray Pre-Hospital Report: Treatment in Route: Response to Treatment: Misc. Issues: Normal [facility] US LE Venous Duplex Righton 08-10-2022 US LE Venous Duplex Right Exam Date/Time: 08/10/2022 15:49 EDT Reason for Exam: History of DVT Report IMPRESSION: NO EVIDENCE OF VENOUS THROMBOSIS INVOLVING VISUALIZED DEEP VEINS OF THE RIGHT LEG. CLINICAL HISTORY: History of DVT. Right lower leg pain. COMMENT: On the right, the external iliac vein, greater saphenous vein, common femoral vein, deep femoral vein, femoral vein, and popliteal vein demonstrate spontaneous phasic venous flow, with augmentation, non-pulsatility, and compressibility every 2 cm. The right posterior tibial and peroneal veins of the deep venous system compress. The contralateral left common femoral vein demonstrates spontaneous phasic venous flow. Ordering Provider: Anish Schmidt FINAL REPORT Dictated: 08/10/2022 4:14 pm Isidoro Samuels M.D. Signed (Electronic Signature): 08/10/2022 4:14 pm Signed by: Isidoro Samuels M.D. Transcribed by: MAYDA Technologist: KENNA Johnson [facility] XR Ankle 3+ Views Righton XR Ankle 3+ Views Right Exam Date/Time: 08/10/2022 15:58 EDT Reason for Exam: Pain Report IMPRESSION: NO EVIDENCE OF FRACTURE OR DISLOCATION AT THE RIGHT ANKLE. CLINICAL HISTORY: Pain. Pain and swelling right ankle. COMMENT: 4 views. No joint space narrowing is noted at the right ankle. There is minimal hypertrophic spurring at the medial and lateral malleoli. No fracture nor dislocation is noted at the right ankle. There is a plantar heel spur. There is relatively mild soft tissue swelling at the right ankle, greatest medially. Ordering Provider: Anish Schmidt FINAL REPORT Dictated: 08/10/2022 4:16 pm Isidoro Samuels M.D. Signed (Electronic Signature): 08/10/2022 4:16 pm Signed by: Isidoro Samuels M.D. Transcribed by: MAYDA Technologist: GREG Technical Comments Radiation Dose: Ka,r in mGy = na DAP = na Normal [facility] CBC AUTO DIFFon 03-23-2022 BASO # 0.1 103/ul Normal 0.0-0.1 [facility] Comment on above: Performed By: #### U MICRO, ERUR #### [facility] [address] [address] [address] Gray Hunter Basophils/100 WBC (Bld) 0.9 % Normal 0.2-2.0 [facility] Comment on above: Performed By: #### U MICRO, ERUR #### [facility] [address] [place] [address] Dr. Gray Hunter EO # 0.2 103/ul Normal 0.0-0.7 [facility] Comment on above: Performed By: #### U MICRO, ERUR #### [facility] [address] [place] [address] Dr. Gray Hunter Eosinophils/100 WBC (Bld) 2.2 % Normal 0.9-7.0 [facility] Comment on above: Performed By: #### U MICRO, ERUR #### [facility] [address] [place] [address] Dr. Gray Hunter Erythrocyte distribution width (RBC) [Ratio] 13.3 % Normal 11.0-15.0 [facility] Comment on above: Performed By: #### U MICRO, ERUR #### [facility] [address] [place] [address] Dr. Gray Hunter Hematocrit (Bld) [Volume fraction] 40.3 % Critically low 42.0-54.0 [facility] Comment on above: Performed By: #### U MICRO, ERUR #### [facility] [address] [place] [address] Dr. Gray Hunter Hemoglobin (Bld) [Mass/Vol] 13.2 g/dL Critically low 14.0-18.0 [facility] Comment on above: Performed By: #### U MICRO, ERUR #### [facility] [address] [place] [address] Dr. Gray Hunter IG # 0.03 10e3/ul Normal 0.00-0.03 [facility] Comment on above: Performed By: #### U MICRO, ERUR #### [facility] [address] [place] [address] Dr. Gray Hunter IG % 0.4 % Normal 0.0-0.5 [facility] Comment on above: Performed By: #### U MICRO, ERUR #### [facility] [address] [place] [address] Dr. Gray Hunter LYMPH # 1.5 103/ul Normal 1.2-3.8 [facility] Comment on above: Performed By: #### U MICRO, ERUR #### [facility] [address] [place] [address] Dr. Gray Hunter Lymphocytes/100 WBC (Bld) 21.5 % Normal 20.5-60.0 [facility] Comment on above: Performed By: #### U MICRO, ERUR #### [facility] [address] [place] [address] Dr. Gray Hunter MANUAL DIFF REQ NO Normal [facility] Comment on above: Performed By: #### U MICRO, ERUR #### [facility] [address] [place] [address] Dr. Gray Hunter MCH (RBC) [Entitic mass] 27.8 pg Normal 25.9-34.0 [facility] Comment on above: Performed By: #### U MICRO, ERUR #### [facility] [address] [place] [address] Dr. Gray Hunter MCHC (RBC) [Mass/Vol] 32.8 g/dL Normal 29.9-35.2 [facility] Comment on above: Performed By: #### U MICRO, ERUR #### [facility] [address] [place] [address] Dr. Gray Hunter MCV (RBC) [Entitic vol] 84.8 fL Normal 80.0-94.0 [facility] Comment on above: Performed By: #### U MICRO, ERUR #### [facility] [address] [place] [address] Dr. Gray Hunter MONO # 0.6 103/ul Normal 0.3-0.8 [facility] Comment on above: Performed By: #### U MICRO, ERUR #### [facility] [address] [place] [address] Dr. Gray Hunter Monocytes/100 WBC (Bld) 8.7 % Normal 1.7-12.0 [facility] Comment on above: Performed By: #### U MICRO, ERUR #### [facility] [address] [address] [address] Gray Hunter NEUT # 4.5 103/ul Normal 1.4-6.5 [facility] Comment on above: Performed By: #### U MICRO, ERUR #### [facility] [address] [place] [address] Dr. Gray Hunter Neutrophils/100 WBC (Bld) 66.3 % Normal 43.0-75.0 [facility] Comment on above: Performed By: #### U MICRO, ERUR #### [facility] [address] [place] [address] Dr. Gray Hunter Platelet mean volume (Bld) [Entitic vol] 10.1 fL Normal 9.5-13.5 [facility] Comment on above: Performed By: #### U MICRO, ERUR #### [facility] [address] [place] [address] Dr. Gray Hunter PLT 258 103/ul Normal 150-450 [facility] Comment on above: Performed By: #### U MICRO, ERUR #### [facility] [address] [place] [address] Dr. Gray Hunter RBC 4.75 106/ul Normal 4.70-6.10 [facility] Comment on above: Performed By: #### U MICRO, ERUR #### [facility] [address] [place] [address] Dr. Gray Hunter WBC 6.8 103/ul Normal 4.0-11.0 [facility] Comment on above: Performed By: #### U MICRO, ERUR #### [facility] [address] [place] [address] Dr. Gray Hunter FREE T3on 03-23-2022 FREE T3 2.51 pg/mlL Normal 2.18-3.98 [facility] Comment on above: Performed By: #### T SH, LIPID, CMP, FT3 #### [facility] [address] [place] [address] Dr. Gray Hunter FREE T4on 03-23-2022 Free T4 [Mass/Vol] 0.77 ng/dL Normal 0.76-1.46 [facility] Comment on above: Performed By: #### U MICRO, ERUR #### [facility] [address] [address] [address] Gray Hunter LIPID PROFILEon 03-23-2022 CHOL-HDL RATIO NORM SEE BELOW Normal [facility] Comment on above: Result Comment: 3.3 - 4.4 LOW RISK 4.4 - 7.1 AVERAGE RISK 7.1 - 11.0 MODERATE RISK >11.0 HIGH RISK Performed By: #### T SH, LIPID, CMP, FT3 #### [facility] [address] [address] [address] Gray Hunter Cholesterol [Mass/Vol] 240 mg/dL Critically high <=200 [facility] Comment on above: Performed By: #### T SH, LIPID, CMP, FT3 #### [facility] [address] [address] [address] Gray Hunter Cholesterol in HDL [Mass/Vol] 45 mg/dL Normal 40-60 [facility] Comment on above: Performed By: #### T SH, LIPID, CMP, FT3 #### [facility] [address] [address] [address] Gray Hunter Cholesterol in LDL [Mass/Vol] 165.6 mg/dL Normal [facility] Comment on above: Performed By: #### T SH, LIPID, CMP, FT3 #### [facility] [address] [address] [address] Gray Hunter Cholesterol.total /Cholesterol in HDL [Mass ratio] 5.3 {ratio} Normal [facility] Comment on above: Performed By: #### T SH, LIPID, CMP, FT3 #### [facility] [address] [address] [address] Gray Hunter HDL NORMAL > or = 60 mg/dl - LO W CARDIOVASCULAR RISK <40 mg/dl - HIGH CARDIOVASCULAR RISK Normal [facility] Comment on above: Performed By: #### T SH, LIPID, CMP, FT3 #### [facility] [address] [address] [address] Gray Hunter LDL CALC NORMAL SEE BELOW Normal [facility] Comment on above: Result Comment: <100 mg/dl OPTIMAL 100 - 129 mg/dl NEAR OR ABOVE OPTIMAL 130 - 159 mg/dl BORDERLINE HIGH 160 - 189 mg/dl HIGH >190 mg/dl VERY HIGH Performed By: #### T SH, LIPID, CMP, FT3 #### [facility] [address] [address] [address] Gray Hunter Triglyceride [Mass/Vol] 147 mg/dL Normal <=150 [facility] Comment on above: Performed By: #### T SH, LIPID, CMP, FT3 #### [facility] [address] [address] [address] Gray Hunter VLDL CALC 29.4 mg/dL Normal [facility] Comment on above: Performed By: #### T SH, LIPID, CMP, FT3 #### [facility] [address] [address] [address] Gray Hunter PROF 14(COMP METB)on 023 Albumin [Mass/Vol] 3.5 g/dL Normal 3.4-5.0 [facility] Comment on above: Performed By: #### T SH, LIPID, CMP, FT3 #### [facility] [address] [address] [address] Gray Hunter Albumin/Globulin [Mass ratio] 1.0 {ratio} Normal [facility] Comment on above: Performed By: #### T SH, LIPID, CMP, FT3 #### [facility] [address] [address] [address] Gray Hunter ALP [Catalytic activity/Vol] 77 U/L Normal 46-116 [facility] Comment on above: Performed By: #### T SH, LIPID, CMP, FT3 #### [facility] [address] [address] [address] Gray Hunter ALT [Catalytic activity/Vol] 25 U/L Normal 16-63 [facility] Comment on above: Performed By: #### T SH, LIPID, CMP, FT3 #### [facility] [address] [address] [address] Gray Hunter Anion gap [Moles/Vol] 12.2 mmol/L Normal [facility] Comment on above: Performed By: #### T SH, LIPID, CMP, FT3 #### [facility] [address] [address] [address] Gray Hunter AST [Catalytic activity/Vol] 16 U/L Normal 15-37 [facility] Comment on above: Performed By: #### T SH, LIPID, CMP, FT3 #### [facility] [address] [address] [address] Gray Hunter Bilirubin [Mass/Vol] 0.3 mg/dL Normal 0.2-1.0 [facility] Comment on above: Performed By: #### T SH, LIPID, CMP, FT3 #### [facility] [address] [place] [address] Dr. Gray Hunter Calcium [Mass/Vol] 8.7 mg/dL Normal 8.5-10.1 [facility] Comment on above: Performed By: #### T SH, LIPID, CMP, FT3 #### [facility] [address] [place] [address] Dr. Gray Hunter Chloride [Moles/Vol] 106 mmol/L Normal 98-107 [facility] Comment on above: Performed By: #### T SH, LIPID, CMP, FT3 #### [facility] [address] [place] [address] Dr. Gray Hunter CO2 [Moles/Vol] 26.4 mmol/L Normal 21.0-32.0 [facility] Comment on above: Performed By: #### T SH, LIPID, CMP, FT3 #### [facility] [address] [place] [address] Dr. Gray Hunter Creatinine [Mass/Vol] 1.13 mg/dL Normal 0.70-1.30 [facility] Comment on above: Performed By: #### T SH, LIPID, CMP, FT3 #### [facility] [address] [place] [address] Dr. Gray Hunter EGFR-AF MEXICAN >60 Normal >=60 [facility] Comment on above: Performed By: #### T SH, LIPID, CMP, FT3 #### [facility] [address] [address] [address] Gray Hunter EGFR-NON AF MEXICAN >60 Normal >=60 [facility] Comment on above: Performed By: #### T SH, LIPID, CMP, FT3 #### [facility] [address] [address] [address] Gray Hunter Globulin (S) [Mass/Vol] 3.4 g/dL Normal [facility] Comment on above: Performed By: #### T SH, LIPID, CMP, FT3 #### [facility] [address] [address] [address] Gray Hunter Glucose [Mass/Vol] 105 mg/dL Normal 74-106 [facility] Comment on above: Performed By: #### T SH, LIPID, CMP, FT3 #### [facility] [address] [address] [address] Gray Hunter Potassium [Moles/Vol] 4.6 mmol/L Normal 3.5-5.1 [facility] Comment on above: Performed By: #### T SH, LIPID, CMP, FT3 #### [facility] [address] [address] [address] Gray Hunter Protein [Mass/Vol] 6.9 g/dL Normal 6.4-8.2 [facility] Comment on above: Performed By: #### T SH, LIPID, CMP, FT3 #### [facility] [address] [address] [address] Gray Hunter Sodium [Moles/Vol] 140 mmol/L Normal 136-145 [facility] Comment on above: Performed By: #### T SH, LIPID, CMP, FT3 #### [facility] [address] [address] [address] Gray Hunter Urea nitrogen [Mass/Vol] 14.0 mg/dL Normal 7.0-18.0 [facility] Comment on above: Performed By: #### T SH, LIPID, CMP, FT3 #### [facility] [address] [address] [address] Gray Hunter Urea nitrogen/Creatini ne [Mass ratio] 12.4 mg/mg Normal [facility] Comment on above: Performed By: #### T SH, LIPID, CMP, FT3 #### [facility] [address] [place] [address] Dr. Gray Hunter TSHon 03-23-2022 TSH 1.365 uIU/mL Normal 0.358-3.740 [facility] Comment on above: Performed By: #### T SH, LIPID, CMP, FT3 #### [facility] [address] [place] [address] Dr. Gray Hunter CBC AUTO DIFFon 11-29-2021 BASO # 0.0 103/ul Normal 0.0-0.1 [facility] Comment on above: Performed By: #### C BC #### [facility] [address] [place] [address] Dr. Gray Hunter Basophils/100 WBC (Bld) 0.3 % Normal 0.2-2.0 [facility] Comment on above: Performed By: #### C BC #### [facility] [address] [place] [address] Dr. Gray Hunter EO # 0.1 103/ul Normal 0.0-0.7 [facility] Comment on above: Performed By: #### C BC #### [facility] [address] [place] [address] Dr. Gray Hunter Eosinophils/100 WBC (Bld) 2.0 % Normal 0.9-7.0 [facility] Comment on above: Performed By: #### C BC #### [facility] [address] [place] [address] Dr. Gray Hunter Erythrocyte distribution width (RBC) [Ratio] 12.6 % Normal 11.0-15.0 [facility] Comment on above: Performed By: #### C BC #### [facility] [address] [place] [address] Dr. Gray Hunter Hematocrit (Bld) [Volume fraction] 34.3 % Critically low 42.0-54.0 [facility] Comment on above: Performed By: #### C BC #### [facility] [address] [place] [address] Dr. Gray Hunter Hemoglobin (Bld) [Mass/Vol] 11.3 g/dL Critically low 14.0-18.0 [facility] Comment on above: Performed By: #### C BC #### [facility] [address] [place] [address] Dr. Gray Hunter IG # 0.01 10e3/ul Normal 0.00-0.03 [facility] Comment on above: Performed By: #### C BC #### [facility] [address] [place] [address] Dr. Gray Hunter IG % 0.2 % Normal 0.0-0.5 [facility] Comment on above: Performed By: #### C BC #### [facility] [address] [place] [address] Dr. Gray Hunter LYMPH # 0.8 103/ul Critically low 1.2-3.8 [facility] Comment on above: Performed By: #### C BC #### [facility] [address] [place] [address] Dr. Gray Hunter Lymphocytes/100 WBC (Bld) 13.0 % Critically low 20.5-60.0 [facility] Comment on above: Performed By: #### C BC #### [facility] [address] [place] [address] Dr. Gray Hunter MANUAL DIFF REQ NO Normal [facility] Comment on above: Performed By: #### C BC #### [facility] [address] [place] [address] Dr. Gray Hunter MCH (RBC) [Entitic mass] 29.5 pg Normal 25.9-34.0 [facility] Comment on above: Performed By: #### C BC #### [facility] [address] [place] [address] Dr. Gray Hunter MCHC (RBC) [Mass/Vol] 32.9 g/dL Normal 29.9-35.2 [facility] Comment on above: Performed By: #### C BC #### [facility] [address] [place] [address] Dr. Gray Hunter MCV (RBC) [Entitic vol] 89.6 fL Normal 80.0-94.0 [facility] Comment on above: Performed By: #### C BC #### [facility] [address] [place] [address] Dr. Gray Hunter MONO # 0.7 103/ul Normal 0.3-0.8 [facility] Comment on above: Performed By: #### C BC #### [facility] [address] [place] [address] Dr. Gray Hunter Monocytes/100 WBC (Bld) 10.4 % Normal 1.7-12.0 [facility] Comment on above: Performed By: #### C BC #### [facility] [address] [place] [address] Dr. Gray Hunter NEUT # 4.8 103/ul Normal 1.4-6.5 [facility] Comment on above: Performed By: #### C BC #### [facility] [address] [place] [address] Dr. Gray Hunter Neutrophils/100 WBC (Bld) 74.1 % Normal 43.0-75.0 [facility] Comment on above: Performed By: #### C BC #### [facility] [address] [place] [address] Dr. Gray Hunter Platelet mean volume (Bld) [Entitic vol] 10.4 fL Normal 9.5-13.5 [facility] Comment on above: Performed By: #### C BC #### [facility] [address] [place] [address] Dr. Gray Hunter PLT 219 103/ul Normal 150-450 [facility] Comment on above: Performed By: #### C BC #### [facility] [address] [place] [address] Dr. Gray Hunter RBC 3.83 106/ul Critically low 4.70-6.10 [facility] Comment on above: Performed By: #### C BC #### [facility] [address] [place] [address] Dr. Gray Hunter WBC 6.4 103/ul Normal 4.0-11.0 [facility] Comment on above: Performed By: #### C BC #### [facility] [address] [address] [address] Gray Hunter PROF 14(COMP METB)on 022 Albumin [Mass/Vol] 2.9 g/dL Critically low 3.4-5.0 [facility] Comment on above: Performed By: #### U MICRO, ERUR #### [facility] [address] [place] [address] Dr. Gray Hunter Albumin/Globulin [Mass ratio] 0.9 {ratio} Normal [facility] Comment on above: Performed By: #### U MICRO, ERUR #### [facility] [address] [place] [address] Dr. Gray Hunter ALP [Catalytic activity/Vol] 48 U/L Normal 46-116 [facility] Comment on above: Performed By: #### U MICRO, ERUR #### [facility] [address] [place] [address] Dr. Gray Hunter ALT [Catalytic activity/Vol] 21 U/L Normal 16-63 [facility] Comment on above: Performed By: #### U MICRO, ERUR #### [facility] [address] [place] [address] Dr. Gray Hunter Anion gap [Moles/Vol] 13.5 mmol/L Normal [facility] Comment on above: Performed By: #### U MICRO, ERUR #### [facility] [address] [address] [address] Gray Hunter AST [Catalytic activity/Vol] 18 U/L Normal 15-37 [facility] Comment on above: Performed By: #### U MICRO, ERUR #### [facility] [address] [address] [address] Gray Hunter Bilirubin [Mass/Vol] 0.2 mg/dL Normal 0.2-1.0 [facility] Comment on above: Performed By: #### U MICRO, ERUR #### [facility] [address] [address] [address] Gray Hunter Calcium [Mass/Vol] 8.1 mg/dL Critically low 8.5-10.1 [facility] Comment on above: Performed By: #### U MICRO, ERUR #### [facility] [address] [place] [address] Dr. Gray Hunter Chloride [Moles/Vol] 109 mmol/L Critically high 98-107 [facility] Comment on above: Performed By: #### U MICRO, ERUR #### [facility] [address] [place] [address] Dr. Gray Hunter CO2 [Moles/Vol] 21.5 mmol/L Normal 21.0-32.0 [facility] Comment on above: Performed By: #### U MICRO, ERUR #### [facility] [address] [place] [address] Dr. Gray Hunter Creatinine [Mass/Vol] 0.93 mg/dL Normal 0.70-1.30 [facility] Comment on above: Performed By: #### U MICRO, ERUR #### [facility] [address] [place] [address] Dr. Gray Hunter EGFR-AF MEXICAN >60 Normal >=60 [facility] Comment on above: Performed By: #### U MICRO, ERUR #### [facility] [address] [place] [address] Dr. Gray Hunter EGFR-NON AF MEXICAN >60 Normal >=60 [facility] Comment on above: Performed By: #### U MICRO, ERUR #### [facility] [address] [place] [address] Dr. Gray Hunter Globulin (S) [Mass/Vol] 3.2 g/dL Normal [facility] Comment on above: Performed By: #### U MICRO, ERUR #### [facility] [address] [place] [address] Dr. Gray Hunter Glucose [Mass/Vol] 88 mg/dL Normal 74-106 [facility] Comment on above: Performed By: #### U MICRO, ERUR #### [facility] [address] [place] [address] Dr. Gray Hunter Potassium [Moles/Vol] 4.0 mmol/L Normal 3.5-5.1 [facility] Comment on above: Performed By: #### U MICRO, ERUR #### [facility] [address] [place] [address] Dr. Gray Hunter Protein [Mass/Vol] 6.1 g/dL Critically low 6.4-8.2 [facility] Comment on above: Performed By: #### U MICRO, ERUR #### [facility] [address] [address] [address] Gray Hunter Sodium [Moles/Vol] 140 mmol/L Normal 136-145 [facility] Comment on above: Performed By: #### U MICRO, ERUR #### [facility] [address] [place] [address] Dr. Gray Hunter Urea nitrogen [Mass/Vol] 6.0 mg/dL Critically low 7.0-18.0 [facility] Comment on above: Performed By: #### U MICRO, ERUR #### [facility] [address] [place] [address] Dr. Gray Hunter Urea nitrogen/Creatini ne [Mass ratio] 6.5 mg/mg Normal [facility] Comment on above: Performed By: #### U MICRO, ERUR #### [facility] [address] [place] [address] Dr. Gray Hunter PROTIMEon 11-29-2021 INR Coag (PPP) [Relative time] 2.87 {INR} Normal [facility] Comment on above: Performed By: #### U MICRO, ERUR #### [facility] [address] [place] [address] Dr. Gray Hunter INR GUIDELINES SEE BELOW Normal [facility] Comment on above: Result Comment: DENIS RED INR: 2.0 - 3.0 CONDITIONS NOT LISTED BELOW 2.5 - 3.5 FOR PROSTHETIC HEART VALVE REPLACEMENT 2.5 - 3.5 RECURRENT THROMBOSIS Performed By: #### U MICRO, ERUR #### [facility] [address] [place] [address] Dr. Gray Hunter PT Coag (PPP) [Time] 28.9 s Critically high 9.0-11.6 [facility] Comment on above: Performed By: #### U MICRO, ERUR #### [facility] [address] [place] [address] Dr. Gray Hunter CBC AUTO DIFFon 11-28-2021 BASO # 0.0 103/ul Normal 0.0-0.1 [facility] Comment on above: Performed By: #### U MICRO, ERUR #### [facility] [address] [place] [address] Dr. Gray Hunter Basophils/100 WBC (Bld) 0.5 % Normal 0.2-2.0 [facility] Comment on above: Performed By: #### U MICRO, ERUR #### [facility] [address] [place] [address] Dr. Gray Hunter EO # 0.2 103/ul Normal 0.0-0.7 [facility] Comment on above: Performed By: #### U MICRO, ERUR #### [facility] [address] [place] [address] Dr. Gray Hunter Eosinophils/100 WBC (Bld) 2.2 % Normal 0.9-7.0 [facility] Comment on above: Performed By: #### U MICRO, ERUR #### [facility] [address] [place] [address] Dr. Gray Hunter Erythrocyte distribution width (RBC) [Ratio] 12.8 % Normal 11.0-15.0 [facility] Comment on above: Performed By: #### U MICRO, ERUR #### [facility] [address] [place] [address] Dr. Gray Hunter Hematocrit (Bld) [Volume fraction] 35.0 % Critically low 42.0-54.0 [facility] Comment on above: Performed By: #### U MICRO, ERUR #### [facility] [address] [place] [address] Dr. Gray Hunter Hemoglobin (Bld) [Mass/Vol] 11.1 g/dL Critically low 14.0-18.0 [facility] Comment on above: Performed By: #### U MICRO, ERUR #### [facility] [address] [address] [address] Gray Hunter IG # 0.04 10e3/ul Critically high 0.00-0.03 [facility] Comment on above: Performed By: #### U MICRO, ERUR #### [facility] [address] [address] [address] Gray Hunter IG % 0.5 % Normal 0.0-0.5 [facility] Comment on above: Performed By: #### U MICRO, ERUR #### [facility] [address] [address] [address] Gray Hunter LYMPH # 0.9 103/ul Critically low 1.2-3.8 [facility] Comment on above: Performed By: #### U MICRO, ERUR #### [facility] [address] [place] [address] Dr. Gray Hunter Lymphocytes/100 WBC (Bld) 10.7 % Critically low 20.5-60.0 [facility] Comment on above: Performed By: #### U MICRO, ERUR #### [facility] [address] [place] [address] Dr. Gray Hunter MANUAL DIFF REQ NO Normal [facility] Comment on above: Performed By: #### U MICRO, ERUR #### [facility] [address] [place] [address] Dr. Gray Hunter MCH (RBC) [Entitic mass] 29.0 pg Normal 25.9-34.0 [facility] Comment on above: Performed By: #### U MICRO, ERUR #### [facility] [address] [place] [address] Dr. Gray Hunter MCHC (RBC) [Mass/Vol] 31.7 g/dL Normal 29.9-35.2 [facility] Comment on above: Performed By: #### U MICRO, ERUR #### [facility] [address] [address] [address] Gray Hunter MCV (RBC) [Entitic vol] 91.4 fL Normal 80.0-94.0 [facility] Comment on above: Performed By: #### U MICRO, ERUR #### [facility] [address] [address] [address] Gray Hunter MONO # 0.7 103/ul Normal 0.3-0.8 [facility] Comment on above: Performed By: #### U MICRO, ERUR #### [facility] [address] [place] [address] Dr. Gray Hunter Monocytes/100 WBC (Bld) 8.5 % Normal 1.7-12.0 [facility] Comment on above: Performed By: #### U MICRO, ERUR #### [facility] [address] [place] [address] Dr. Gray Hunter NEUT # 6.3 103/ul Normal 1.4-6.5 [facility] Comment on above: Performed By: #### U MICRO, ERUR #### [facility] [address] [place] [address] Dr. Gray Hunter Neutrophils/100 WBC (Bld) 77.6 % Critically high 43.0-75.0 [facility] Comment on above: Performed By: #### U MICRO, ERUR #### [facility] [address] [place] [address] Dr. Gray Hunter Platelet mean volume (Bld) [Entitic vol] 10.5 fL Normal 9.5-13.5 [facility] Comment on above: Performed By: #### U MICRO, ERUR #### [facility] [address] [place] [address] Dr. Gray Hunter PLT 190 103/ul Normal 150-450 [facility] Comment on above: Performed By: #### U MICRO, ERUR #### [facility] [address] [place] [address] Dr. Gray Hunter RBC 3.83 106/ul Critically low 4.70-6.10 [facility] Comment on above: Performed By: #### U MICRO, ERUR #### [facility] [address] [place] [address] Dr. Gray Hunter WBC 8.2 103/ul Normal 4.0-11.0 [facility] Comment on above: Performed By: #### U MICRO, ERUR #### [facility] [address] [address] [address] Gray Hunter PROF 14(COMP METB)on 022 Albumin [Mass/Vol] 2.9 g/dL Critically low 3.4-5.0 [facility] Comment on above: Performed By: #### U MICRO, ERUR #### [facility] [address] [place] [address] Dr. Gray Hunter Albumin/Globulin [Mass ratio] 0.9 {ratio} Normal [facility] Comment on above: Performed By: #### U MICRO, ERUR #### [facility] [address] [place] [address] Dr. Gray Hunter ALP [Catalytic activity/Vol] 52 U/L Normal 46-116 [facility] Comment on above: Performed By: #### U MICRO, ERUR #### [facility] [address] [place] [address] Dr. Gray Hunter ALT [Catalytic activity/Vol] 21 U/L Normal 16-63 [facility] Comment on above: Performed By: #### U MICRO, ERUR #### [facility] [address] [place] [address] Dr. Gray Hunter Anion gap [Moles/Vol] 14.3 mmol/L Normal [facility] Comment on above: Performed By: #### U MICRO, ERUR #### [facility] [address] [address] [address] rGay Hunter AST [Catalytic activity/Vol] 13 U/L Critically low 15-37 [facility] Comment on above: Performed By: #### U MICRO, ERUR #### [facility] [address] [address] [address] Gray Hunter Bilirubin [Mass/Vol] 0.4 mg/dL Normal 0.2-1.0 [facility] Comment on above: Performed By: #### U MICRO, ERUR #### [facility] [address] [address] [address] Gray Hunter Calcium [Mass/Vol] 7.5 mg/dL Critically low 8.5-10.1 [facility] Comment on above: Performed By: #### U MICRO, ERUR #### [facility] [address] [place] [address] Dr. Gray Hunter Chloride [Moles/Vol] 109 mmol/L Critically high 98-107 [facility] Comment on above: Performed By: #### U MICRO, ERUR #### [facility] [address] [place] [address] Dr. Gray Hunter CO2 [Moles/Vol] 19.3 mmol/L Critically low 21.0-32.0 [facility] Comment on above: Performed By: #### U MICRO, ERUR #### [facility] [address] [place] [address] Dr. Gray Hunter Creatinine [Mass/Vol] 0.93 mg/dL Normal 0.70-1.30 [facility] Comment on above: Performed By: #### U MICRO, ERUR #### [facility] [address] [place] [address] Dr. Gray Hunter EGFR-AF MEXICAN >60 Normal >=60 [facility] Comment on above: Performed By: #### U MICRO, ERUR #### [facility] [address] [place] [address] Dr. Gray Hunter EGFR-NON AF MEXICAN >60 Normal >=60 [facility] Comment on above: Performed By: #### U MICRO, ERUR #### [facility] [address] [place] [address] Dr. Gray Hunter Globulin (S) [Mass/Vol] 3.2 g/dL Normal [facility] Comment on above: Performed By: #### U MICRO, ERUR #### [facility] [address] [place] [address] Dr. Gray Hunter Glucose [Mass/Vol] 81 mg/dL Normal 74-106 [facility] Comment on above: Performed By: #### U MICRO, ERUR #### [facility] [address] [place] [address] Dr. Gray Hunter Potassium [Moles/Vol] 3.6 mmol/L Normal 3.5-5.1 [facility] Comment on above: Performed By: #### U MICRO, ERUR #### [facility] [address] [place] [address] Dr. Gray Hunter Protein [Mass/Vol] 6.1 g/dL Critically low 6.4-8.2 [facility] Comment on above: Performed By: #### U MICRO, ERUR #### [facility] [address] [place] [address] Dr. Gray Hunter Sodium [Moles/Vol] 139 mmol/L Normal 136-145 [facility] Comment on above: Performed By: #### U MICRO, ERUR #### [facility] [address] [place] [address] Dr. Gray Hunter Urea nitrogen [Mass/Vol] 9.0 mg/dL Normal 7.0-18.0 [facility] Comment on above: Performed By: #### U MICRO, ERUR #### [facility] [address] [place] [address] Dr. Gray Hunter Urea nitrogen/Creatini ne [Mass ratio] 9.7 mg/mg Normal [facility] Comment on above: Performed By: #### U MICRO, ERUR #### [facility] [address] [place] [address] Dr. Gray Hunter PROTIMEon 11-28-2021 INR Coag (PPP) [Relative time] 1.81 {INR} Normal [facility] Comment on above: Performed By: #### U MICRO, ERUR #### [facility] [address] [place] [address] Dr. Gray Hunter INR GUIDELINES SEE BELOW Normal [facility] Comment on above: Result Comment: DENIS RED INR: 2.0 - 3.0 CONDITIONS NOT LISTED BELOW 2.5 - 3.5 FOR PROSTHETIC HEART VALVE REPLACEMENT 2.5 - 3.5 RECURRENT THROMBOSIS Performed By: #### U MICRO, ERUR #### [facility] [address] [place] [address] Dr. Gray Hunter PT Coag (PPP) [Time] 18.8 s Critically high 9.0-11.6 [facility] Comment on above: Performed By: #### U MICRO, ERUR #### [facility] [address] [place] [address] Dr. Gray Hunter CBC AUTO DIFFon 11-27-2021 BASO # 0.0 103/ul Normal 0.0-0.1 [facility] Comment on above: Performed By: #### U MICRO, ERUR #### [facility] [address] [place] [address] Dr. Gray Hunter Basophils/100 WBC (Bld) 0.5 % Normal 0.2-2.0 [facility] Comment on above: Performed By: #### U MICRO, ERUR #### [facility] [address] [place] [address] Dr. Gray Hunter EO # 0.1 103/ul Normal 0.0-0.7 [facility] Comment on above: Performed By: #### U MICRO, ERUR #### [facility] [address] [place] [address] Dr. Gray Hunter Eosinophils/100 WBC (Bld) 0.6 % Critically low 0.9-7.0 [facility] Comment on above: Performed By: #### U MICRO, ERUR #### [facility] [address] [place] [address] Dr. Gray Hunter Erythrocyte distribution width (RBC) [Ratio] 13.1 % Normal 11.0-15.0 [facility] Comment on above: Performed By: #### U MICRO, ERUR #### [facility] [address] [place] [address] Dr. Gray Hunter Hematocrit (Bld) [Volume fraction] 34.3 % Critically low 42.0-54.0 [facility] Comment on above: Performed By: #### U MICRO, ERUR #### [facility] [address] [place] [address] Dr. Gray Hunter Hemoglobin (Bld) [Mass/Vol] 11.0 g/dL Critically low 14.0-18.0 [facility] Comment on above: Performed By: #### U MICRO, ERUR #### [facility] [address] [address] [address] Gray Hunter IG # 0.03 10e3/ul Normal 0.00-0.03 [facility] Comment on above: Performed By: #### U MICRO, ERUR #### [facility] [address] [place] [address] Dr. Gray Hunter IG % 0.4 % Normal 0.0-0.5 [facility] Comment on above: Performed By: #### U MICRO, ERUR #### [facility] [address] [place] [address] Dr. Gray Hunter LYMPH # 1.2 103/ul Normal 1.2-3.8 [facility] Comment on above: Performed By: #### U MICRO, ERUR #### [facility] [address] [place] [address] Dr. Gray Hunter Lymphocytes/100 WBC (Bld) 14.8 % Critically low 20.5-60.0 [facility] Comment on above: Performed By: #### U MICRO, ERUR #### [facility] [address] [place] [address] Dr. Gray Hunter MANUAL DIFF REQ NO Normal [facility] Comment on above: Performed By: #### U MICRO, ERUR #### [facility] [address] [place] [address] Dr. Gray Hunter MCH (RBC) [Entitic mass] 29.3 pg Normal 25.9-34.0 [facility] Comment on above: Performed By: #### U MICRO, ERUR #### [facility] [address] [place] [address] Dr. Grya Hunter MCHC (RBC) [Mass/Vol] 32.1 g/dL Normal 29.9-35.2 [facility] Comment on above: Performed By: #### U MICRO, ERUR #### [facility] [address] [place] [address] Dr. Gray Hunter MCV (RBC) [Entitic vol] 91.2 fL Normal 80.0-94.0 [facility] Comment on above: Performed By: #### U MICRO, ERUR #### [facility] [address] [address] [address] Gray Hunter MONO # 0.8 103/ul Normal 0.3-0.8 [facility] Comment on above: Performed By: #### U MICRO, ERUR #### [facility] [address] [place] [address] Dr. Gray Hunter Monocytes/100 WBC (Bld) 10.2 % Normal 1.7-12.0 [facility] Comment on above: Performed By: #### U MICRO, ERUR #### [facility] [address] [address] [address] Gray Hunter NEUT # 5.8 103/ul Normal 1.4-6.5 [facility] Comment on above: Performed By: #### U MICRO, ERUR #### [facility] [address] [place] [address] Dr. Gray Hunter Neutrophils/100 WBC (Bld) 73.5 % Normal 43.0-75.0 [facility] Comment on above: Performed By: #### U MICRO, ERUR #### [facility] [address] [place] [address] Dr. Gray Hunter Platelet mean volume (Bld) [Entitic vol] 10.4 fL Normal 9.5-13.5 [facility] Comment on above: Performed By: #### U MICRO, ERUR #### [facility] [address] [place] [address] Dr. Gray Hunter PLT 188 103/ul Normal 150-450 [facility] Comment on above: Performed By: #### U MICRO, ERUR #### [facility] [address] [place] [address] Dr. Gray Hunter RBC 3.76 106/ul Critically low 4.70-6.10 [facility] Comment on above: Performed By: #### U MICRO, ERUR #### [facility] [address] [place] [address] Dr. Gray Hunter WBC 7.8 103/ul Normal 4.0-11.0 [facility] Comment on above: Performed By: #### U MICRO, ERUR #### [facility] [address] [place] [address] Dr. Gray Hunter PROF 14(COMP METB)on 022 Albumin [Mass/Vol] 2.8 g/dL Critically low 3.4-5.0 [facility] Comment on above: Performed By: #### C MP #### [facility] [address] [place] [address] Dr. Gray Hunter Albumin/Globulin [Mass ratio] 0.9 {ratio} Normal [facility] Comment on above: Performed By: #### C MP #### [facility] [address] [place] [address] Dr. Gray Hunter ALP [Catalytic activity/Vol] 53 U/L Normal 46-116 [facility] Comment on above: Performed By: #### C MP #### [facility] [address] [place] [address] Dr. Gray Hunter ALT [Catalytic activity/Vol] 20 U/L Normal 16-63 [facility] Comment on above: Performed By: #### C MP #### [facility] [address] [place] [address] Dr. Gray Hunter Anion gap [Moles/Vol] 11.0 mmol/L Normal [facility] Comment on above: Performed By: #### C MP #### [facility] [address] [place] [address] Dr. Gray Hunter AST [Catalytic activity/Vol] 12 U/L Critically low 15-37 [facility] [facility] Comment on above: Performed By: #### C MP #### [facility] [address] [place] [address] Dr. Gray Hunter Bilirubin [Mass/Vol] 0.6 mg/dL Normal 0.2-1.0 [facility] Comment on above: Performed By: #### C MP #### [facility] [address] [place] [address] Dr. Gray Hunter Calcium [Mass/Vol] 7.6 mg/dL Critically low 8.5-10.1 [facility] Comment on above: Performed By: #### C MP #### [facility] [address] [place] [address] Dr. Gray Hunter Chloride [Moles/Vol] 109 mmol/L Critically high 98-107 [facility] Comment on above: Performed By: #### C MP #### [facility] [address] [place] [address] Dr. Gray Hunter CO2 [Moles/Vol] 22.8 mmol/L Normal 21.0-32.0 [facility] Comment on above: Performed By: #### C MP #### [facility] [address] [place] [address] Dr. Gray Hunter Creatinine [Mass/Vol] 1.01 mg/dL Normal 0.70-1.30 [facility] Comment on above: Performed By: #### C MP #### [facility] [address] [place] [address] Dr. Gray Hunter EGFR-AF MEXICAN >60 Normal >=60 [facility] Comment on above: Performed By: #### C MP #### [facility] [address] [place] [address] Dr. Gray Hunter EGFR-NON AF MEXICAN >60 Normal >=60 [facility] Comment on above: Performed By: #### C MP #### [facility] [address] [place] [address] Dr. Gray Hunter Globulin (S) [Mass/Vol] 3.2 g/dL Normal [facility] Comment on above: Performed By: #### C MP #### [facility] [address] [place] [address] Dr. Gray Hunter Glucose [Mass/Vol] 83 mg/dL Normal 74-106 [facility] Comment on above: Performed By: #### C MP #### [facility] [address] [place] [address] Dr. Gray Hunter Potassium [Moles/Vol] 3.8 mmol/L Normal 3.5-5.1 [facility] Comment on above: Performed By: #### C MP #### [facility] [address] [place] [address] Dr. Gray Hunter Protein [Mass/Vol] 6.0 g/dL Critically low 6.4-8.2 [facility] Comment on above: Performed By: #### C MP #### [facility] [address] [place] [address] Dr. Gray Hunter Sodium [Moles/Vol] 139 mmol/L Normal 136-145 [facility] Comment on above: Performed By: #### C MP #### [facility] [address] [place] [address] Dr. Gray Hunter Urea nitrogen [Mass/Vol] 11.0 mg/dL Normal 7.0-18.0 [facility] Comment on above: Performed By: #### C MP #### [facility] [address] [place] [address] Dr. Gray Hunter Urea nitrogen/Creatini ne [Mass ratio] 10.9 mg/mg Normal [facility] Comment on above: Performed By: #### C MP #### [facility] [address] [place] [address] Dr. Gray Hunter PROTIMEon 11-27-2021 INR Coag (PPP) [Relative time] 1.71 {INR} Normal [facility] Comment on above: Performed By: #### P T #### [facility] [address] [place] [address] Dr. Gray Hunter INR GUIDELINES SEE BELOW Normal [facility] Comment on above: Result Comment: DENIS RED INR: 2.0 - 3.0 CONDITIONS NOT LISTED BELOW 2.5 - 3.5 FOR PROSTHETIC HEART VALVE REPLACEMENT 2.5 - 3.5 RECURRENT THROMBOSIS Performed By: #### P T #### [facility] [address] [place] [address] Dr. Gray Hunter PT Coag (PPP) [Time] 17.8 s Critically high 9.0-11.6 [facility] Comment on above: Performed By: #### P T #### [facility] [address] [place] [address] Dr. Gray Hunter AMYLASEon 11-26-2021 Amylase [Catalytic activity/Vol] 60 U/L Normal 25-115 [facility] Comment on above: Performed By: #### U MICRO, ERUR #### [facility] [address] [address] [address] Gray Hunter CARDIAC SAMIRA ADMITon 022 CK [Catalytic activity/Vol] 62 U/L Normal 39-308 [facility] Comment on above: Performed By: #### U MICRO, ERUR #### [facility] [address] [address] [address] Gray Hunter CK.MB [Mass/Vol] 0.55 ng/mL Normal <=3.60 [facility] Comment on above: Performed By: #### U MICRO, ERUR #### [facility] [address] [place] [address] Dr. Gray Hunter HSTROP 7.4 pg/mL Normal 4.0-76.1 [facility] Comment on above: Result Comment: CUT- OFF POINTS HAVE BEEN ESTABLISHED BASED ON THE FOURTH UNIVERSAL DEFINITIONS OF MYOCARDIAL INFARCTION. THE UPPER REFERENCE LIMIT (URL) OF TROPONIN, DEFINED THE 99TH PERCENTILE OF cTnI DISTRIBUTION IN A REFERENCE POPULATION, HAS BEEN CONFIRMED THE DECISION THRESHOLD FOR OH DIAGNOSIS. Performed By: #### U MICRO, ERUR #### [facility] [address] [place] [address] Dr. Gray Hunter KASSANDRA 64 ng/mL Normal 16-96 [facility] Comment on above: Performed By: #### U MICRO, ERUR #### [facility] [address] [place] [address] Dr. Gray Hunter CBC AUTO DIFFon 11-26-2021 BASO # 0.0 103/ul Normal 0.0-0.1 [facility] Comment on above: Performed By: #### C BC #### [facility] [address] [address] [address] Gray Hunter Basophils/100 WBC (Bld) 0.3 % Normal 0.2-2.0 [facility] Comment on above: Performed By: #### C BC #### [facility] [address] [place] [address] Dr. Gray Hunter EO # 0.0 103/ul Normal 0.0-0.7 [facility] Comment on above: Performed By: #### C BC #### [facility] [address] [place] [address] Dr. Gray Hunter Eosinophils/100 WBC (Bld) 0.3 % Critically low 0.9-7.0 [facility] Comment on above: Performed By: #### C BC #### [facility] [address] [place] [address] Dr. Gray Hunter Erythrocyte distribution width (RBC) [Ratio] 13.0 % Normal 11.0-15.0 [facility] Comment on above: Performed By: #### C BC #### [facility] [address] [place] [address] Dr. Gray Hunter Hematocrit (Bld) [Volume fraction] 39.4 % Critically low 42.0-54.0 [facility] Comment on above: Performed By: #### C BC #### [facility] [address] [place] [address] Dr. Gray Hunter Hemoglobin (Bld) [Mass/Vol] 12.7 g/dL Critically low 14.0-18.0 [facility] Comment on above: Performed By: #### C BC #### [facility] [address] [place] [address] Dr. Gray Hunter IG # 0.07 10e3/ul Critically high 0.00-0.03 [facility] Comment on above: Performed By: #### C BC #### [facility] [address] [place] [address] Dr. Gray Hunter IG % 0.5 % Normal 0.0-0.5 [facility] Comment on above: Performed By: #### C BC #### [facility] [address] [place] [address] Dr. Gray Hunter LYMPH # 1.4 103/ul Normal 1.2-3.8 [facility] Comment on above: Performed By: #### C BC #### [facility] [address] [place] [address] Dr. Gray Hunter Lymphocytes/100 WBC (Bld) 10.7 % Critically low 20.5-60.0 [facility] Comment on above: Performed By: #### C BC #### [facility] [address] [place] [address] Dr. Gray Hunter MANUAL DIFF REQ NO Normal [facility] Comment on above: Performed By: #### C BC #### [facility] [address] [place] [address] Dr. Gray Hunter MCH (RBC) [Entitic mass] 29.5 pg Normal 25.9-34.0 [facility] Comment on above: Performed By: #### C BC #### [facility] [address] [place] [address] Dr. Gray Hunter MCHC (RBC) [Mass/Vol] 32.2 g/dL Normal 29.9-35.2 [facility] Comment on above: Performed By: #### C BC #### [facility] [address] [place] [address] Dr. Gray Hunter MCV (RBC) [Entitic vol] 91.4 fL Normal 80.0-94.0 [facility] Comment on above: Performed By: #### C BC #### [facility] [address] [place] [address] Dr. Gray Hunter MONO # 1.4 103/ul Critically high 0.3-0.8 [facility] Comment on above: Performed By: #### C BC #### [facility] [address] [place] [address] Dr. Gray Hunter Monocytes/100 WBC (Bld) 10.4 % Normal 1.7-12.0 [facility] Comment on above: Performed By: #### C BC #### [facility] [address] [place] [address] Dr. Gray Hunter NEUT # 10.1 103/ul Critically high 1.4-6.5 [facility] Comment on above: Performed By: #### C BC #### [facility] [address] [place] [address] Dr. Gray Hunter Neutrophils/100 WBC (Bld) 77.8 % Critically high 43.0-75.0 [facility] Comment on above: Performed By: #### C BC #### [facility] [address] [address] [address] Gray Hunter Platelet mean volume (Bld) [Entitic vol] 10.7 fL Normal 9.5-13.5 [facility] Comment on above: Performed By: #### C BC #### [facility] [address] [address] [address] Gray Hunter PLT 230 103/ul Normal 150-450 [facility] Comment on above: Performed By: #### C BC #### [facility] [address] [address] [address] Gray Hunter RBC 4.31 106/ul Critically low 4.70-6.10 [facility] Comment on above: Performed By: #### C BC #### [facility] [address] [place] [address] Dr. Gray Hunter WBC 13.0 103/ul Critically high 4.0-11.0 [facility] Comment on above: Performed By: #### C BC #### [facility] [address] [place] [address] ABD/PELVIS WO CONon 11-26 CT ABD/PELVIS WO CON EXAMINATION: CT ABD/PELVIS WO CON HISTORY: UNSPECIFIED ABDOMINAL PAIN ; left lower quadrant and left flank pain COMPARISON: CT abdomen pelvis 12/08/2017 TECHNIQUE: Axial, Coronal, and Sagittal images were obtained without and/or with IV contrast as indicated by examination type. Dose reduction techniques were achieved by using automated exposure control and/or adjustment of mA and/or kV according to patient size and/or use of iterative reconstruction technique. FINDINGS: LUNG BASES: No visible pulmonary or pleural disease. LIVER: No enlargement, atrophy, suspicious density, or significant focal lesion. BILIARY: No dilatation or calcification. PANCREAS: No lesion, fluid collection, or abnormal duct dilatation. SPLEEN: No enlargement or focal lesion. ADRENALS: No mass or enlargement. KIDNEYS: Nonobstructing 2 mm stone within right kidney. BOWEL/MESENTERY: Proximal sigmoid colon circumferential wall thickening, diverticula, and mild-moderate inflammatory changes of the pericolonic fat consistent with acute diverticulitis. Single tiny focus of free air consistent with perforation. No free fluid. AORTA/VASCULAR: No aneurysm or dissection. RETROPERITONEUM: No mass or adenopathy. LYMPH NODES: No adenopathy. URINARY BLADDER: No visible focal wall thickening, lesion, or calculus. PELVIC ORGANS: No visible mass. Pelvic organs appropriate for patient age. ABDOMINAL WALL: No mass or hernia. BONES: No bony lesion or fracture. OTHER: Negative. IMPRESSION: 1. Moderate acute diverticulitis of the proximal sigmoid colon with perforation and tiny focus of free air. No bowel obstruction. 2. Nonobstructing right nephrolithiasis. Electronically authenticated by: ALECIA GOODSON Date: 2021-11-26 11:39 Normal [facility] Covid-19 PCR ([facility])on 11-06 SARS-CoV-2 (COVID-19) RNA NATALI+probe Ql (Unsp spec) Not detected Normal NOT DETECTED [facility] Comment on above: Result Comment: When diagnostic testing is negative, the possibility of a false negative should be considered in the context of a patient's recent exposures and the presence of clinical signs and symptoms consistent with SARS-CoV-2. This test is not yet approved or cleared by the [place] FDA. When there are no FDA-approved or cleared tests available, and other criteria are met, FDA can make tests available under an emergency access mechanism called an Emergency Use Authorization (EUA). The EUA for this test is supported by the Clin Nurse of Health and Human Service's declaration that circumstances exist to justify the emergency use of in vitro diagnostics for the detection and/or diagnosis of the virus that causes COVID-19. This EUA will remain in effect for the duration of the COVID-19 declaration justifying emergency of IVDs, unless it is terminated or revoked by the FDA (after which the test may no longer be used). Performed By: #### U MICRO, ERUR #### [facility] [address] [address] [address] Gray Hunter ER URINE PROFILEon 2 Bilirubin Ql (U) SMALL Abnormal NEGATIVE [facility] Comment on above: Performed By: #### U MICRO, ERUR #### [facility] [address] [address] [address] Gray Hunter Clarity (U) CLEAR Normal CLEAR [facility] Comment on above: Performed By: #### U MICRO, ERUR #### [facility] [address] [address] [address] Gray Hunter Color (U) YELLOW Normal YELLOW [facility] Comment on above: Performed By: #### U MICRO, ERUR #### [facility] [address] [address] [address] Gray Hunter ERUAHD A micrscopic examina tion will be performed if indicated. Normal [facility] Comment on above: Performed By: #### U MICRO, ERUR #### [facility] [address] [address] [address] Gray Hunter Glucose Ql (U) Negative Normal NEGATIVE [facility] Comment on above: Performed By: #### U MICRO, ERUR #### [facility] [address] [address] [address] Gray Hunter Hemoglobin Ql (U) MODERATE Abnormal NEGATIVE [facility] Comment on above: Performed By: #### U MICRO, ERUR #### [facility] [address] [address] [address] Gray Hunter Ketones Ql (U) TRACE Abnormal NEGATIVE [facility] Comment on above: Performed By: #### U MICRO, ERUR #### [facility] [address] [address] [address] Gray Hunter LEUKOCYTES Negative Normal NEGATIVE [facility] Comment on above: Performed By: #### U MICRO, ERUR #### [facility] [address] [address] [address] Gray Hunter Nitrite Ql (U) Negative Normal NEGATIVE [facility] Comment on above: Performed By: #### U MICRO, ERUR #### [facility] [address] [address] [address] Gray Hunter pH (U) 5.5 [pH] Normal 5-9 [facility] Comment on above: Performed By: #### U MICRO, ERUR #### [facility] [address] [address] [address] Gray Hunter SPEC GRAVITY >=1.030 Abnormal 1.005-<=1.025 [facility] Comment on above: Performed By: #### U MICRO, ERUR #### [facility] [address] [place] [address] Dr. Gray Hunter UA PROTEIN TRACE Normal NEGATIVE/ TRACE [facility] Comment on above: Performed By: #### U MICRO, ERUR #### [facility] [address] [place] [address] Dr. Gray Hunter UR MICRO IND INDICATED Normal [facility] Comment on above: Performed By: #### U MICRO, ERUR #### [facility] [address] [place] [address] Dr. Gray Hunter Urobilinogen Qn (U) 0.2 {Sanjana'U}/dL Normal 0.2 - 1.0 [facility] Comment on above: Performed By: #### U MICRO, ERUR #### [facility] [address] [place] [address] Dr. Gray Hunter LIPASEon 11-26-2021 Lipase [Catalytic activity/Vol] 107.0 U/L Normal 73.0-393.0 [facility] Comment on above: Performed By: #### U MICRO, ERUR #### [facility] [address] [place] [address] Dr. Gary Hunter PROF 14(COMP METB)on 022 Albumin [Mass/Vol] 3.5 g/dL Normal 3.4-5.0 [facility] Comment on above: Performed By: #### U MICRO, ERUR #### [facility] [address] [place] [address] Dr. Gray Hunter Albumin/Globulin [Mass ratio] 1.0 {ratio} Normal [facility] Comment on above: Performed By: #### U MICRO, ERUR #### [facility] [address] [place] [address] Dr. Gray Hunter ALP [Catalytic activity/Vol] 67 U/L Normal 46-116 [facility] Comment on above: Performed By: #### U MICRO, ERUR #### [facility] [address] [place] [address] Dr. Gray Hunter ALT [Catalytic activity/Vol] 28 U/L Normal 16-63 [facility] Comment on above: Performed By: #### U MICRO, ERUR #### [facility] [address] [place] [address] Dr. Gray Hunter Anion gap [Moles/Vol] 10.7 mmol/L Normal [facility] Comment on above: Performed By: #### U MICRO, ERUR #### [facility] [address] [place] [address] Dr. Gray Hunter AST [Catalytic activity/Vol] 14 U/L Critically low 15-37 [facility] Comment on above: Performed By: #### U MICRO, ERUR #### [facility] [address] [place] [address] Dr. Gray Hunter Bilirubin [Mass/Vol] 0.8 mg/dL Normal 0.2-1.0 [facility] Comment on above: Performed By: #### U MICRO, ERUR #### [facility] [address] [place] [address] Dr. Gary Hunter Calcium [Mass/Vol] 8.4 mg/dL Critically low 8.5-10.1 [facility] Comment on above: Performed By: #### U MICRO, ERUR #### [facility] [address] [place] [address] Dr. Gray Hunter Chloride [Moles/Vol] 106 mmol/L Normal 98-107 [facility] Comment on above: Performed By: #### U MICRO, ERUR #### [facility] [address] [place] [address] Dr. Gray Hunter CO2 [Moles/Vol] 24.3 mmol/L Normal 21.0-32.0 [facility] Comment on above: Performed By: #### U MICRO, ERUR #### [facility] [address] [place] [address] Dr. Gray Hunter Creatinine [Mass/Vol] 1.16 mg/dL Normal 0.70-1.30 [facility] Comment on above: Performed By: #### U MICRO, ERUR #### [facility] [address] [address] [address] Gray Hunter EGFR-AF MEXICAN >60 Normal >=60 [facility] Comment on above: Performed By: #### U MICRO, ERUR #### [facility] [address] [address] [address] Gray Hunter EGFR-NON AF MEXICAN >60 Normal >=60 [facility] Comment on above: Performed By: #### U MICRO, ERUR #### [facility] [address] [address] [address] Gray Hunter Globulin (S) [Mass/Vol] 3.6 g/dL Normal [facility] Comment on above: Performed By: #### U MICRO, ERUR #### [facility] [address] [place] [address] Dr. Gray Hunter Glucose [Mass/Vol] 109 mg/dL Critically high 74-106 [facility] Comment on above: Performed By: #### U MICRO, ERUR #### [facility] [address] [address] [address] Gray Hunter Potassium [Moles/Vol] 4.0 mmol/L Normal 3.5-5.1 [facility] Comment on above: Performed By: #### U MICRO, ERUR #### [facility] [address] [place] [address] Dr. Gray Hunter Protein [Mass/Vol] 7.1 g/dL Normal 6.4-8.2 [facility] Comment on above: Performed By: #### U MICRO, ERUR #### [facility] [address] [place] [address] Dr. Gray Hunter Sodium [Moles/Vol] 137 mmol/L Normal 136-145 [facility] Comment on above: Performed By: #### U MICRO, ERUR #### [facility] [address] [place] [address] Dr. Gray Hunter Urea nitrogen [Mass/Vol] 13.0 mg/dL Normal 7.0-18.0 [facility] Comment on above: Performed By: #### U MICRO, ERUR #### [facility] [address] [place] [address] Dr. Gray Hunter Urea nitrogen/Creatini ne [Mass ratio] 11.2 mg/mg Normal [facility] Comment on above: Performed By: #### U MICRO, ERUR #### [facility] [address] [place] [address] Dr. Gray Hnuter PROTIMEon 11-26-2021 INR Coag (PPP) [Relative time] 2.18 {INR} Normal [facility] Comment on above: Performed By: #### U MICRO, ERUR #### [facility] [address] [place] [address] Dr. Gray Hunter INR GUIDELINES SEE BELOW Normal [facility] Comment on above: Result Comment: DENIS RED INR: 2.0 - 3.0 CONDITIONS NOT LISTED BELOW 2.5 - 3.5 FOR PROSTHETIC HEART VALVE REPLACEMENT 2.5 - 3.5 RECURRENT THROMBOSIS Performed By: #### U MICRO, ERUR #### [facility] [address] [place] [address] Dr. Gray Hunter PT Coag (PPP) [Time] 22.4 s Critically high 9.0-11.6 [facility] [facility] Comment on above: Performed By: #### U MICRO, ERUR #### [facility] [address] [place] [address] Dr. Gray Hunter PTTon 11-26-2021 aPTT Coag (Bld) [Time] 49.5 s Critically high 22.3-36.2 [facility] Comment on above: Performed By: #### U MICRO, ERUR #### [facility] [address] [place] [address] Dr. Gray Hunter URINE MICROSCOPIC ONLYon BACTERIA TRACE Abnormal NONE SEEN [facility] Comment on above: Performed By: #### U MICRO, ERUR #### [facility] [address] [place] [address] Dr. Gray Hunter Bacteria identified Cx Nom (U) NOT INDICATED Normal [facility] Comment on above: Performed By: #### U MICRO, ERUR #### [facility] [address] [place] [address] Dr. Gray Hunter CAST NONE SEEN Normal NONE SEEN [facility] Comment on above: Performed By: #### U MICRO, ERUR #### [facility] [address] [address] [address] Gray Hunter Crystals LM Nom (Urine sed) NONE SEEN Normal NONE SEEN [facility] Comment on above: Performed By: #### U MICRO, ERUR #### [facility] [address] [address] [address] Gray Hunter Epithelial cells LM Ql (Urine sed) RARE Normal NONE SEEN /RARE [facility] Comment on above: Performed By: #### U MICRO, ERUR #### [facility] [address] [address] [address] Gray Hunter MUCOUS MODERATE Abnormal NONE SEEN [facility] Comment on above: Performed By: #### U MICRO, ERUR #### [facility] [address] [place] [address] Dr. Gray Hunter RBC 0-2 Normal 0-2 [facility] Comment on above: Performed By: #### U MICRO, ERUR #### [facility] [address] [address] [address] Gray Hunter WBC 2-5 Abnormal NONE SEEN [facility] Comment on above: Performed By: #### U MICRO, ERUR #### [facility] [address] [place] [address] Dr. Gray Hunter Coding Summaryon 03-14-2019 Coding Summary CODING DATE: 020 [facility] STATUS: Home PAYOR: Medicaid HMO ADMIT DX: REASON FOR VISIT DX: M77.11 Lateral epicondylitis, right elbow FINAL DX: PRINCIPAL: M77.11 Lateral epicondylitis, right elbow SECONDARY: PYMT PROC APC STAT DESCRIPTION DOCTOR NAME DATE 79228 Tenotomy, elbow, lateral DAMIAN MARIE 03/08/2019 or medial (eg, epicondylitis, tennis elbow, golfer's elbow); percutaneous RT Right side (used to identify procedures performed on the right side of the body) NOTE: The code number assigned matches the documented diagnosis and / or procedure in the patient's chart. However, the narrative phrase printed from the coding software may appear abbreviated, or result in slightly different terminology. Coded By: Marychuy Wright Date Saved: 03/14/2019 11:57 am [facility] History and Physicalon 03-12 History and Physical [id number]#1.00OTGTI [facility] Consent Formson 03-09-2019 Consent Forms [id number]#1.00OTGTI [facility] Consent Forms [id number]#1.00OTGTI [facility] Outside Recordson 03-09-2019 Outside Records [id number]#[facility] Stripson 0 Telemetry Strips [id number]#1.[facility] Anest[facility] Noteon 03-08-2019 Anesthesia Note Patient: Celestina DUBON Age: 63 years Sex: MALE : 1955 Associated Diagnoses: None Author: Flip Morales DO Preoperative Information Anesthesia history: Patient history: No difficult intubation, No malignant hyperthermia. Family history: No malignant hyperthermia, No prior anesthesia problems. Review of Systems Constitutional: Negative. Eye Ear/Nose/Mouth/Throat Respiratory: No shortness of breath, No cough. Cardiovascular: No chest pain. Gastrointestinal: Heartburn, Well controlled with Pepcid.. Endocrine: Negative. Neurologic: Alert and oriented X4. Health Status Allergies: Allergic Reactions (All) Severity Not Documented Cefuroxime Axetil- Itching and mood swings. Canceled/Inactive Reactions (All) No Known Medication Allergies Current medications: Home Medications (6) Active albuterol 90 mcg/inh inhalation aerosol 1 puff(s), PRN, INH, QID doxycycline hyclate 100 mg oral capsule 100 mg = 1 cap(s), PO, Daily FLUoxetine 10 mg oral capsule 10 mg = 1 cap(s), PO, Daily Metoprolol Tartrate 50 mg oral tablet 50 mg = 1 tab(s), PO, Daily Pepcid 20 mg oral tablet 20 mg = 1 tab(s), PO, Daily topiramate 50 mg oral tablet 50 mg = 1 tab(s), PO, Daily Problem list (past medical history): All Problems Asthma / SNOMED CT 895314717 / Confirmed GERD (gastroesophageal reflux disease) / SNOMED CT 438081583 / Confirmed Migraine / SNOMED CT 006481869 / Confirmed Hypertension / SNOMED CT 6562436693 / Confirmed Histories Family History: No family history items have been selected or recorded. Procedure history: Tooth extraction ([id number]). Comments: 02/23/2019 10:37 Ginny Rene RN all teeth Rotator cuff ([id number]). Comments: 02/23/2019 10:37 Ginny Rene RN left Trigger finger of both hands ([id number]). Comments: 02/23/2019 10:38 Ginny Rene RN ring fingers biltat Carpal tunnel release (535371403). Comments: 02/23/2019 10:38 Ginny Rene RN right wrist Arthroscopy ([id number]). Comments: 02/23/2019 10:39 Ginny Rene RN right knee with OCL repair Great toe ([id number]). Comments: 02/23/2019 10:39 Ginny Rene RN bilat Cyst ([id number]). Comments: 02/23/2019 10:40 Ginny Rene RN left foot with nerve removed Tonsillectomy ([id number]). Social History Electronic Cigarette/Vaping Assessment Electronic Cigarette Use: Never. Alcohol Assessment Use: Past. Comment: quit 1980 Tobacco Assessment Former smoker, quit more than 30 days ago Tobacco Use:. Comment: quit 1986 Substance Abuse Assessment Substance use: Past. Marijuana Comment: quit in 1986 . Social & Psychosocial Habits Alcohol 02/23/2019 Alcohol Use: Past Comment: quit 1980 - 02/23/2019 10:45 - Ginny Ortiz RN Substance Abuse 02/23/2019 Substance use: Past Type: Marijuana Comment: quit in 1986 - 02/23/2019 10:46 - Ginny Ortiz RN Tobacco 02/23/2019 Smoking tobacco use: Former smoker, quit more Comment: quit 1986 - 02/23/2019 10:45 - Ginny Ortiz RN Electronic Cigarette/Vaping 02/23/2019 Electronic Cigarette Use: Never . Physical Examination VS/Measurements Vital Signs (last 24 hrs) Last Charted Heart Rate Peripheral L 56bpm (MAR 08 06:00) Resp Rate 16 br/min (MAR 08 06:00) SBP 124 mmHg (MAR 08 06:00) DBP 81 mmHg (MAR 08 06:00) SpO2 99 % (MAR 08:) General: Alert and oriented, No acute distress. Airway: Mallampati classification: II (soft palate, fauces, uvula visible). Temporomandibular joint mobility: Good. Mouth: Dentures ( Upper dentures ), Teeth ( Broken, Missing, Very poor lower dentition. Denies loose teeth. ). Neck: Non-tender, Full range of motion. Respiratory: Lungs are clear to auscultation. Cardiovascular: Normal rate, Regular rhythm. Neurologic: Alert, Oriented. Review / Management Laboratory Results Plan [place] [employer]esthesiologists#(ASA) physical status classification: Class II. Anesthetic Preoperative Plan Anesthesia: General. . Anesthetic plan, risks, benefits, and alternatives discussed with the patient and/or family. Risks discussed: nausea, vomiting, sore throat, serious complications. Patient verbalized understanding. Family/Guardian present. Informed consent was given. Consent was signed by the patient. [Electronically Signed on: 03/08/2019 07:26 EST] Flip Morales DO [Verified on: 03/08/2019 07:26 EST] Flip Morales DO Normal [facility] Inpatient Patient Summaryon 03-08-2019 Inpatient Patient Summary [address] [address] Patient Discharge Instructions Name: MALOU DUBON : 1955 Patient Address: [facility] [address] [place] [address] Primary Care Provider: Name: ANTON HINES After you are discharged if you find you have any questions, please, call [phone] ext [phone] to speak to a nurse. Discharge Diagnosis: Epicondylitis, lateral, right Prescription Information: If you have been given a prescription for narcotics, seek immediate medical attention if you have any difficulty breathing or any sudden status changes such as confusion and sleepiness. If you or anyone you know is experiencing suicidal thoughts, mental health, alcohol and/or drug addiction problems; contact the [facility] 27/09 Crisis Hotline -Text 4HUQV to 169807. If you received any narcotics, sedation, or any other medication that causes drowsiness for the next 24 hours, unless otherwise directed: ? Do not drive a car. ? Do not operate machinery such as power tools, lawn mowers, drills, sewing machines, or stoves ? Avoid alcoholic beverages and drugs for allergies, nerves, or sleep ? Do not make important personal or business decisions or sign any legal documents [facility] would like to thank you for allowing us to assist you with your healthcare needs. The following includes patient education materials and information regarding your injury/illness. AMLOU DUBON has been given the following list of follow-up instructions, prescriptions, and patient education materials: Follow-up Instructions With: Address: When: Vinay Santos [address] [place] [address], [address] [place] [address] [facility] (1) 03/23/2019 11:00 AM Medications During the course of your visit, your medication list was updated with the most current information. The details of those changes are reflected below: New Medications Printed Prescriptions acetaminophen-codeine (Tylenol with Codeine #3 oral tablet) 1 tab(s) Oral every 6 hours as needed for pain for 7 Days. Refills: 0. Medications That Were Updated - Follow Below Instructions Other Medications Updated: doxycycline (doxycycline hyclate 100 mg oral capsule) 1 cap(s) Oral every day. Updated: metoprolol (Metoprolol Tartrate 50 mg oral tablet) 1 tab(s) Oral every day. Updated: topiramate (topiramate 50 mg oral tablet) 1 tab(s) Oral every day. Medications to Continue That Have Not Changed Other Medications albuterol (albuterol 90 mcg/inh inhalation aerosol) 1 puff(s) Inhalation 4 times a day as needed for wheezing. famotidine (Pepcid 20 mg oral tablet) 1 tab(s) Oral every day. FLUoxetine (FLUoxetine 10 mg oral capsule) 1 cap(s) Oral every day. It is important to always keep an active list of medications available so that you can share with other providers and manage your medications appropriately. As an additional courtesy, we are also providing you with your final active medications list that you can keep with you. acetaminophen-codeine (Tylenol with Codeine #3 oral tablet) 1 tab(s) Oral every 6 hours as needed for pain for 7 Days. Refills: 0. albuterol (albuterol 90 mcg/inh inhalation aerosol) 1 puff(s) Inhalation 4 times a day as needed for wheezing. doxycycline (doxycycline hyclate 100 mg oral capsule) 1 cap(s) Oral every day. famotidine (Pepcid 20 mg oral tablet) 1 tab(s) Oral every day. FLUoxetine (FLUoxetine 10 mg oral capsule) 1 cap(s) Oral every day. metoprolol (Metoprolol Tartrate 50 mg oral tablet) 1 tab(s) Oral every day. topiramate (topiramate 50 mg oral tablet) 1 tab(s) Oral every day. Take only the medications listed above. Contact your doctor prior to taking any medications not on this list. Diet & Activity Patient Activity Level: As Tolerated Patient Diet: Regular Patient Activity Restrictions: Discontinue Alcohol Use Comment: Patient education materials, if any, will display below Outpatient Shoulder Discharge Instructions 1.) For the next 24 hours, do not drink any alcoholic beverages, drive a motor vehicle, operate machinery or power tools, make any important decisions or sign important papers. 2.) Rest at home with moderate activity as tolerated for at least 24 hours. 3.) You may feel dizzy, lightheaded or sleepy following surgery. Please, have someone with you for the rest of the day and during the night. 4.) You may eat when you prefer, but it is usually best to start with liquids and gradually work up to solid foods. 5.) If you experience persistent nausea or vomiting, pain not controlled with your pain medicine and ice, bleeding that you feel is excessive, swelling or fever, please call Dr. Marie at [phone]. 6.) Keep dressings in place, clean and dry until seen in office. 7.) Remove arm sling and sponge bathe around dressing starting tomorrow, keep dressing in place clean and dry during sponge bathing. No showering until seen in the office and sutures removed. 8.) May open and close fingers but no flexion or extension of wrist. No use of right upper extremity 9.) Use the sling continuously except to bathe. 10.) No flexion and extension of elbow 11.) Use Ice as needed to help with pain control. 12.) you have been given a prescription for Tylenol 3. Tylenol 3 is a narcotic, narcotics are addictive, use it sparingly to help control pain only. If you feel you have problems with addiction please feel free to contact Dr. Marie, your family physician, or proceed immediately to the nearest hospital's emergency services department Viruses or Bacteria What?s got you sick? Antibiotics only treat bacterial infections. Viral illnesses cannot be treated with antibiotics. When an antibiotic is not prescribed, ask your healthcare professional for tips on how to relieve symptoms and feel better. Usual Cause Illness Viruses Bacteria Antibiotic Needed Cold/Runny Nose NO Bronchitis/Chest Cold (in otherwise healthy children and adults) NO Whooping Cough Yes Flu NO Strep Throat Yes Sore Throat (except strep) NO Fluid in the middle ear (otitis media with effusion) NO Urinary Tract Infection Yes Antibiotics Aren?t Always the Answer www.cdc.gov/getsmart GET SMART Know When Antibiotics Work U.S. Department of Health and Human Services Centers for Disease Control and Prevention November 2013 [facility] MAGR Intraoperative Recordon 03-08-2019 MAGR Intraoperative Record MAGR Intra-Op Record Summary Primary Physician: DAMIAN MARIE Finalized Date/Time: 03/08/19 14:24:45 Pt. Name: MALOU DUBON/Sex: 1955 MALE Med Rec #: [id number] Physician: DAMIAN MARIE Financial #: [id number] Pt. Type: D Room/Bed: / Admit/Disch: 03/08/19 05:40:00 - 03/08/19 10:40:00 Institution: Case Times MAGR Entry 1 Patient In Room Time 03/08/19 07:34:00 Out Room Time 03/08/19 08:40:00 Anesthesia Start Time 03/08/19 07:35:00 Stop Time 03/08/19 08:40:00 Surgery Start Time 03/08/19 08:06:00 Stop Time 03/08/19 08:32:00 Last Modified By: Noy Jacobson RN 03/08/19 09:31:01 Case Attendance MAGR Entry 1 Entry 2 Entry 3 Case Attendee DAMIAN MARIE David DO McKenna RN, Noy Role Performed Surgeon - Primary Anesthesiologist of Supervisor Picking Crew Record Time In 03/08/19 07:34:00 03/08/19 07:34:00 03/08/19 07:34:00 Time Out 03/08/19 08:40:00 03/08/19 08:40:00 03/08/19 08:40:00 Procedure Olecranon Olecranon Olecranon Bursectomy(Right) Bursectomy(Right) Bursectomy(Right) Last Modified By: Kavon HUNTER, Noy Jacobson RN, Noy Jacobson RN, Noy 03/08/19 09:31:06 03/08/19 09:31:06 03/08/19 09:31:06 Entry 4 Entry 5 Case Attendee Roxana BOW MAKER, Milagro Yeung BOW MAKER Role Performed Scrub Personnel Mechanical Design Technician Time In 03/08/19 07:34:00 03/08/19 07:34:00 Time Out 03/08/19 08:40:00 03/08/19 08:40:00 Procedure Olecranon Olecranon Bursectomy(Right) Bursectomy(Right) Last Modified By: Kavon HUNTER, Noy Jacobson RN, Noy 03/08/19 09:31:06 03/08/19 09:31:06 Surgical Procedures MAGR Pre-Care Text: A.20 Verifies operative procedure, surgical site, and laterality Im.150 Develops individualized plan of care Entry 1 Procedure Olecranon Bursectomy Primary Procedure Yes Primary Surgeon DAMIAN MARIE Right Surgeon Comment RIGHT LATERAL Start 03/08/19 08:06:00 EPICONDYLECTOMY Stop 03/08/19 08:32:00 Anesthesia Type General Surgical Service Orthopedics Wound Class Clean Technique Details Closure Technique Primary Entire procedure No was performed via laparoscope or robotic assistance Last Modified By: Noy Jacobson RN 03/08/19 09:31:12 Post-Care Text: O.730 The patient's care is consistent with the individualized perioperative plan of care General Case Data MAGR Pre-Care Text: A.350.1 Classifies surgical wound Entry 1 Case Information OR MAGR OR 02 Case Level Level 4 Wound Class Clean Specialty Orthopedics ASA Class 2 Diagnosis Preop Diagnosis LATERAL EPICONDYLITIS Postop Same As Preop Yes RIGHT ELBOW Postop Diagnosis LATERAL EPICONDYLITIS RIGHT ELBOW Blunt or No Is the procedure No penetrating injury considered occured prior to Emergent/Urgent? the start of the procedure: Last Modified By: Noy Jacobson RN 03/08/19 08:12:04 Post-Care Text: O.760 Patient receives consistent and comparable care regardless of the setting Time Out MAGR Entry 1 Time out date/time 03/08/19 08:04:00 All team members Yes have introduced themselves by name and role Surgeon, Yes Surgeon reviews Yes anesthesia, nurse critical or confirm patient, unexpected steps, site, procedure operative duration, anticipated blood loss Anesthesia team Yes Nursing team Yes reviews any reviews sterility patient-specific (including concerns indicator results) and equipment issues/concerns Antibiotic Antibiotic Yes Administration Time 07:35 prophylaxis given within the last 60 minutes Is essential N/A imaging displayed? Last Modified By: Noy Jacobson RN 03/08/19 08:13:31 Patient Positioning MAGR Pre-Care Text: A.280 Identifies baseline musculoskeletal status Im.40 Positions the patient Im.80 Applies safety devices Entry 1 Procedure Olecranon Body Position Supine Bursectomy(Right) Left Arm Position Extended on padded arm Right Arm Position Extended on Hand Table board Left Leg Position Extended Right Leg Position Extended Feet Uncrossed? Yes Press Points Checked Yes Positioning Device Pillow, Safety Strap Outcome Met (O.80) Yes Last Modified By: Noy Jacobson RN 03/08/19 08:14:35 Post-Care Text: E.290 Evaluates musculoskeletal status O.80 Patient is free from signs and symptoms of injury related to positioning Skin Prep MAGR Pre-Care Text: A.30 Verifies allergies Im.270 Performs skin preparation Im.270.1 Implements protective measures to prevent skin and tissue injury due to chemical sources Entry 1 Skin Prep Syntegrity Prep Agents (Im.270) Chlorhexidine Gluconate Prep By Noy Jacobson RN and Alcohol Prep Area (Im.270) Arm Skin Prep Agent Dry Yes Without Pooling Hair Removal Syntegrity Hair Removal Methods No hair removal performed Outcome Met (O.100) Yes Last Modified By: Noy Jacobson RN 03/08/19 08:30:11 Post-Care Text: E.10 Evaluates for signs and symptoms of physical injury to skin and tissue O.100 Patient is free from signs and symptoms of chemical injury Counts Verification MAGR Pre-Care Text: A.20 Verifies operative procedure, surgical site, and laterality A.20.2 Assesses the risk for unintended retained foreign body Im.20 Performs required counts Entry 1 Procedure Olecranon Bursectomy(Right) Counts Verification Initial Counts Items included in Sponges, Sharps Initial Counts Manual the Initial Count Method Initial Counts Noy Jacobson RN, Initial Count Time 03/08/19 07:20:00 Performed By Tania Schmidt CST Counts Verification Final Counts Items Included in Sponges, Sharps Final Count Status Correct Final Count Final Counts Noy Jacobson RN, Final Count Time 03/08/19 08:30:00 Performed By Tania Schmidt CST Surgeon notified of Yes final counts status Outcome Met (O.20) Yes Last Modified By: Noy Jacobson RN 03/08/19 08:30:28 Post-Care Text: E.50 Evaluates results of the surgical count O.20 Patient is free from unintended retained foreign objects Patient Care Devices MAGR Pre-Care Text: A.200 Assesses risk for normothermia regulation A.40 Verifies presence of prosthetics or corrective devices Im.280 Implements thermoregulation measures Im.60 Uses supplies and equipment within safe parameters Entry 1 Equipment Type LOWER BODY WARMER Serial ?# [id number] Equipment Setting 43 DEG HARINDER PER FACTORY SETTINGS. Last Modified By: Noy Jacobson RN 03/08/19 08:16:44 Post-Care Text: E.10 Evaluates signs and symptoms of physical injury to skin and tissue O.700 Patient is free from signs and symptoms of injury caused by extraneous objects Tourniquet MAGR Pre-Care Text: A.240 Assesses baseline skin condition Im.120 Implements protective measures to prevent skin or tissue injury due to mechanical sources Entry 1 Tourniquet Type TOURNIQUET Cuff Size 45.72 cm Serial Number [id number] Setting 250 mmHg Padding (Im.120) No Tourniquet Times Inflated 03/08/19 08:06:00 Deflated 03/08/19 08:33:00 Total Time 27 Applied By DAMIAN MARIE Removed By DAMIAN MARIE Outcome Met (O.60) Yes Last Modified By: Noy Jacobson RN 03/08/19 09:34:26 Post-Care Text: E.10 Evaluates for signs and symptoms of physical injury to skin and tissue O.60 Patient is free from sign and symptoms of injury caused by extraneous objects Cautery MAGR Pre-Care Text: A.240 Assesses baseline skin condition A.40 Verifies presence of prosthetics or corrective devices Im.50 Implements protective measures to prevent injury due to electrical sources Entry 1 ESU Type Electrosurgical Unit Identification [id number] Number ESU Settings Syntegrity Cut Setting 25 Coag Setting 25 Grounding Pad Details Grounding Pad Yes Verified By Noy Jacobson RN Needed? Grounding Pad Site Table Grounding Pad Outcome Met (O.10) Yes Last Modified By: Noy Jacobson RN 03/08/19 08:17:54 Post-Care Text: E.10 Evaluates for signs and symptoms of physical injury to skin and tissue O.10 Patient is free from signs and symptoms of injury related to thermal sources Dressing/Packing MAGR Pre-Care Text: A.350 Assesses susceptibility for infection Im.290 Administer care to wound sites Entry 1 Skin Prep Agent Yes Removed Prior to Dressing? Dressing Item Details Dressing Item ABD, Petroleum gauze, Tape (Im.290) Elastic Sports Bandage (Im.290) Other (See comment) Outcome Met Yes Last Modified By: Noy Jacobson RN 03/08/19 09:35:07 Post-Care Text: E.200 Evaluates progress of wound healing O.200 Patient's wound perfusion is consistent with or improved from baseline levels General Comments: WEBRIL Departure from OR MAGR Entry 1 Present on Depart Oxygen Via Stretcher Post-op Destination PACU Skin DFO Condition Description Report Given To Anna Pond RN Airway Maintenance Patient Status Stable Oxygen in Use? Yes Airway Device Simple mask Flow Rate 10 L/min Last Modified By: Noy Jacobson RN 03/08/19 09:35:27 Case Comments Finalized By: Noy Jacobson RN Document Signatures Signed By: Noy Jacobson RN 03/08/19 09:43 Noy Jacobson RN 03/08/19 14:24 Unfinalized History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 obstruction/lower urinary tract symptoms (N40.1: Benign prostatic hyperplasia with lower urinary tract symptoms) IPSS 11 QOL 4 Pt is currently taking no bladder/prostate medication and is mostly dissatisfied with overall symptom control. We discussed treatment options including medication (Flomax, Proscar, etc) and procedures (TURP, Rezum, Urolift) including risks and benefits of each option. Pt states he has had more than enough surgeries but that he would be open to trying a medication. Will start w Flomax once daily. risks/benefits/side effects (more content not included)... [facility] Comment on above: Result Comment: Elec tronically Signed By: NOY RIDER PA-C\.br\Date and Time Signed: 05/10/23 14:12 EST Hospital Discharge instructions 08-10-2022 Note Date & Type Note Facility 08-10-2022 Hospital Discharg e instructions Patient Education 08/10/2022 16:51:34 Achilles Tendinitis Achilles Tendinitis Achilles tendinitis is inflammation of the tough, cord-like band that attaches the lower leg muscles to the heel bone (Achilles tendon). This is usually caused by overusing the tendon and the ankle joint. Achilles tendinitis usually gets better over time with treatment and caring for yourself at home. It can take weeks or months to heal completely. What are the causes? This condition may be caused by: A sudden increase in exercise or activity, such as running. Doing the same exercises or activities, such as jumping, over and over. Not warming up calf muscles before exercising. Exercising in shoes that are worn out or not made for exercise. Having arthritis or a bone growth (spur) on the back of the heel bone. This can rub against the tendon and hurt it. Age-related wear and tear. Tendons become less flexible with age and are more likely to be injured. What are the signs or symptoms? Common symptoms of this condition include: Pain in the Achilles tendon or in the back of the leg, just above the heel. The pain usually gets worse with exercise. Stiffness or soreness in the back of the leg, especially in the morning. Swelling of the skin over the Achilles tendon. Thickening of the tendon. Trouble standing on tiptoe. How is this diagnosed? This condition is diagnosed based on your symptoms and a physical exam. You may have tests, including: X-rays. MRI. How is this treated? The goal of treatment is to relieve symptoms and help your injury heal. Treatment may include: Decreasing or stopping activities that caused the tendinitis. This may mean switching to low-impact exercises like biking or swimming. Icing the injured area. Doing physical therapy, including strengthening and stretching exercises. Taking NSAIDs, such as ibuprofen, to help relieve pain and swelling. Using supportive shoes, wraps, heel lifts, or a walking boot (air cast). Having surgery. This may be done if your symptoms do not improve after other treatments. Using high-energy shock wave impulses to stimulate the healing process (extracorporeal shock wave therapy). This is rare. Having an injection of medicines that help relieve inflammation (corticosteroids). This is rare. Follow these instructions at home: If you have an air cast: Wear the air cast as told by your health care provider. Remove it only as told by your health care provider. Loosen it if your toes tingle, become numb, or turn cold and blue. Keep it clean. If the air cast is not waterproof: ?Do not let it get wet. ?Cover it with a watertight covering when you take a bath or shower. Managing pain, stiffness, and swelling If directed, put ice on the injured area. To do this: ?If you have a removable air cast, remove it as told by your health care provider. ?Put ice in a plastic bag. ?Place a towel between your skin and the bag. ?Leave the ice on for 20 minutes, 2 3 times a day. Move your toes often to reduce stiffness and swelling. Raise (elevate) your foot above the level of your heart while you are sitting or lying down. Activity Gradually return to your normal activities as told by your health care provider. Ask your health care provider what activities are safe for you. Do not do activities that cause pain. Consider doing low-impact exercises, like cycling or swimming. Ask your health care provider when it is safe to drive if you have an air cast on your foot. If physical therapy was prescribed, do exercises as told by your health care provider or physical therapist. General instructions If directed, wrap your foot with an elastic bandage or other wrap. This can help to keep your tendon from moving too much while it heals. Your health care provider will show you how to wrap your foot correctly. Wear supportive shoes or heel lifts only as told by your health care provider. Take [id number]-nqisulm and prescription medicines only as told by your health care provider. Keep all follow-up visits as told by your health care provider. This is important. Contact a health care provider if you: Have symptoms that get worse. Have pain that does not get better with medicine. Develop new, unexplained symptoms. Develop warmth and swelling in your foot. Have a fever. Get help right away if you: Have a sudden popping sound or sensation in your Achilles tendon followed by severe pain. Cannot move your toes or foot. Cannot put any weight on your foot. Your foot or toes become numb and look white or blue even after loosening your bandage or air cast. Summary Achilles tendinitis is inflammation of the tough, cord-like band that attaches the lower leg muscles to the heel bone (Achilles tendon). This condition is usually caused by overusing the tendon and the ankle joint. It can also be caused by arthritis or normal aging. The most common symptoms of this condition include pain, swelling, or stiffness in the Achilles tendon or in the back of the leg. This condition is usually treated by decreasing or stopping activities that caused the tendinitis, icing the injured area, taking NSAIDs, and doing physical therapy. This information is not intended to replace advice given to you by your health care provider. Make sure you discuss any questions you have with your health care provider. Document Revised: 07/09/2019 Document Reviewed: 07/09/2019 [employer] Patient Education 2022 [employer]. Follow Up Care 08/10/2022 14:53:58 With:Flip Hidalgo Address: [address] [place], [place] [id number] [facility] (1) When:08/13/2022 16:33:09 [facility] Evaluation + Plan note Note Date & Type Note Facility Evaluation + Plan note No data available for this section [facility] Progress note Note Date & Type Note Facility Progress note No data available for this section [facility] Summary Purpose Family History No Family History Records FoundNo Family History Records FoundNo Family History Records FoundNo Family History Records Found Advance Directives No Advanced Directives Records FoundNo Advanced Directives Records FoundNo Advanced Directives Records FoundNo Advanced Directives Records Found Procedure Findings Note Patient: MALOU DUBON Age: 63 years Sex: MALE : 1955 Associated Diagnoses: None Author: Flip Morales DO Postoperative Information Post Operative Note: Post Anesthesia Care Unit. Review / Management Condition: Stable. Assessment Anesthetic outcome No anesthetic complications noted. Plan Transfer/ Discharge: Patient can be discharged from PACU when criteria met. Condition good. [Electronically Signed on: 03/08/2019 13:22 EST] Flip Morales DO [Verified on: 03/08/2019 13:22 EST] Flip Morales DO Note [facility] SURGERY Clinical Discharge Summary PERSON INFORMATION Name MALOU DUBON Age 63 Years 1955 Sex MALE Language Trinidadian PCP ANTON HINES Marital Status Med Service Ambulatory Surgery Acct# Arrival 03/08/2019 05:40:00 Visit Reason SURGERY - RIGHT LATERAL EPICONDYLECTOMY Acuity LOS 021 22:23 Address: [address] [place] [id number] Comment: PROVIDER INFORMATION VITALS INFORMATION Vital Sign Triage Latest Temp Oral Temp Temporal Temp Intravascular Temp Axillary Temp Rectal 02 Sat 100 % 94 % Respiratory Rate Peripheral Pulse Rate Apical Heart Rate Blood Pressure / 85 mmHg / 74 mmHg Comment: MEDICAL INFORMATION Allergy Info: Cefuroxime Axetil Prescriptions Given: acetaminophen-codeine (Tylenol with Codeine #3 oral tablet) 1 tab(s) Oral every 6 hours as needed for pain for 7 Days. Refills: 0. albuterol (albuterol 90 mcg/inh inhalation aerosol) 1 puff(s) Inhalation 4 times a day as needed for wheezing. doxycycline (dox (more content not included)... Hospital Course Note [facility] SURGERY Clinical Discharge Summary PERSON INFORMATION Name MALOU DUBON Age 63 Years 1955 Sex MALE Language Trinidadian PCP ANTON HINES Marital Status Med Service Ambulatory Surgery Acct# Arrival 03/08/2019 05:40:00 Visit Reason SURGERY - RIGHT LATERAL EPICONDYLECTOMY Acuity LOS 021 22:23 Address: [address] [place] [id number] Comment: PROVIDER INFORMATION VITALS INFORMATION Vital Sign Triage Latest Temp Oral Temp Temporal Temp Intravascular Temp Axillary Temp Rectal 02 Sat 100 % 94 % Respiratory Rate Peripheral Pulse Rate Apical Heart Rate Blood Pressure / 85 mmHg / 74 mmHg Comment: MEDICAL INFORMATION Allergy Info: Cefuroxime Axetil Prescriptions Given: acetaminophen-codeine (Tylenol with Codeine #3 oral tablet) 1 tab(s) Oral every 6 hours as needed for pain for 7 Days. Refills: 0. albuterol (albuterol 90 mcg/inh inhalation aerosol) 1 puff(s) Inhalation 4 times a day as needed for wheezing. doxycycline (dox (more content not included)... Additional Source Comments INFORMATION SOURCE (unrecogn ized section and content) DATE CREATED AUTHOR 02/12/2018 [facility] DATE CREATED AUTHOR AUTHOR'S ORGANIZ ATION 03/15/2019 [facility] DATE CREATED AUTHOR AUTHOR'S ORGANIZ ATION 08/15/2022 [facility] DATE CREATED AUTHOR AUTHOR'S ORGANIZ ATION 07/14/2023 [facility] (unrecognized sect ion and content) No Status Records FoundNo Status Records FoundNo Status Records Found Patient Care team informatio n (unrecognized section and content) Personnel Name: Yogesh Johnson MD Address: Address: [address] [place], [place] [address] FOR RECORDS PERTAINING TO PATIENTS WHO ARE OR HAVE BEEN ENROLLED IN A CHEMICAL DEPENDENCY/SUBSTANCEABUSE PROGRAM, SOME INFORMATION MAY BE OMITTED. This clinical summary was aggregated from multiple sources. Caution should be exercised in using it in the provision of clinical care. This summary normalizes information from multiple sources, and as a consequence, information in this document may materially change the coding, format and clinical context of patient data. In addition, data may be omitted in some cases. CLINICAL DECISIONS SHOULD BE BASED ON THE PRIMARY CLINICAL RECORDS. [facility] [employer] [facility]. provides no warranty or guarantee of the accuracy or completeness of information in this document.
== END 2023-07-26 08:21 | disposition home or self-care (01) ==
LOC: RAD 08:22
PROVIDERS: PCP Family Medicine; Visit Provider Family Medicine
DX: R07.81 Pleurodynia (principal)
CPT/HCPCS: 71101

== ENCOUNTER 2023-08-08 03:12 | Outpatient (RCR) | payer MEDICARE, MEDICAID, SELFPAY | END 2023-09-02 10:25 | disposition home or self-care (01) | LOC: MM 03:12 | PROVIDERS: PCP Family Medicine; Visit Provider Internal Medicine | DX: Z51.81 Encounter for therapeutic drug level monitoring (principal); Z79.01 Long term (current) use of anticoagulants ==

== ENCOUNTER 2023-08-24 12:00 | Emergency (ER) | payer MEDICARE, MEDICAID, SELFPAY ==
[2023-08-24 12:06] VITALS: BP 126/74; PULSE 53; TEMP 37; O2SAT 98; BMI 30.9
--- NOTE | 2023-08-24 12:15 | US_ITS ---
The [place] [id number] Patient Name: MALOU DUBON MRN: [id number] date: 1955 Sex: M Assigned Patient Location: ED.MAIN Current Patient Location: ER Accession/Order Number: [id number] Exam Date: 08/24/2023 12:40 Report Date: 08/24/2023 13:40 At the request of: MICHELE JONAS Procedure: US venous doppler LE RT EXAMINATION: US venous doppler LE RT HISTORY: hx clots, R leg pain COMPARISON: No relevant comparison available. FINDINGS: REGION: Right lower extremity THROMBI: Short segment of thrombus within the gastrocnemius vein. COMPRESSIBILITY: Noncompressible segment. FLOW: Otherwise normal waveform and antegrade flow between 5 and 20 cm/s. OTHER: None. US/US venous doppler LE RT IMPRESSION: 1. Small amount of deep vein thrombus within the gastrocnemius vein within the calf. Otherwise, the veins are clear. Electronically authenticated by: ALECIA GOODSON Date: 08/24/2023 13:40
--- OUTSIDE RECORDS SUMMARY | 2023-08-24 12:16 | XMS_ITS | CCD ---
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 Normal 4.70-6.10 [facility] Comment on above: Performed By: #### U MICRO, ERUR #### [facility] [address] [place] [address] Dr. Gray Hunter WBC 6.8 103/ul Normal 4.0-11.0 [facility] Comment on above: Performed By: #### U MICRO, ERUR #### [facility] [address] [place] [address] Dr. Gray Hunter FREE T3on 03-23-2022 FREE T3 2.51 pg/mlL Normal 2.18-3.98 [facility] Comment on above: Performed By: #### T SH, LIPID, CMP, FT3 #### [facility] [address] [place] [address] Dr. Gray Hunter FREE T4on 03-23-2022 Free T4 [Mass/Vol] 0.77 ng/dL Normal 0.76-1.46 [facility] Comment on above: Performed By: #### U MICRO, ERUR #### [facility] [address] [place] [address] Dr. Gray Hunter LIPID PROFILEon 03-23-2022 CHOL-HDL RATIO NORM SEE BELOW Normal [facility] Comment on above: Result Comment: 3.3 - 4.4 LOW RISK 4.4 - 7.1 AVERAGE RISK 7.1 - 11.0 MODERATE RISK >11.0 HIGH RISK Performed By: #### T SH, LIPID, CMP, FT3 #### [facility] [address] [place] [address] Dr. Gray Hunter Cholesterol [Mass/Vol] 240 mg/dL Critically high <=200 [facility] Comment on above: Performed By: #### T SH, LIPID, CMP, FT3 #### [facility] [address] [place] [address] Dr. Gray Hunter Cholesterol in HDL [Mass/Vol] 45 mg/dL Normal 40-60 [facility] Comment on above: Performed By: #### T SH, LIPID, CMP, FT3 #### [facility] [address] [address] [address] Gray Hunter Cholesterol in LDL [Mass/Vol] 165.6 mg/dL Normal [facility] Comment on above: Performed By: #### T SH, LIPID, CMP, FT3 #### [facility] [address] [address] [address] Gray Hunter Cholesterol.total/C holesterol in HDL [Mass ratio] 5.3 {ratio} Normal [facility] Comment on above: Performed By: #### T SH, LIPID, CMP, FT3 #### [facility] [address] [place] [address] Dr. Gray Hunter HDL NORMAL > or = 60 mg/dl - LO W CARDIOVASCULAR RISK <40 mg/dl - HIGH CARDIOVASCULAR RISK Normal [facility] Comment on above: Performed By: #### T SH, LIPID, CMP, FT3 #### [facility] [address] [place] [address] Dr. Gray Hunter LDL CALC NORMAL SEE BELOW Normal [facility] Comment on above: Result Comment: <100 mg/dl OPTIMAL 100 - 129 mg/dl NEAR OR ABOVE OPTIMAL 130 - 159 mg/dl BORDERLINE HIGH 160 - 189 mg/dl HIGH >190 mg/dl VERY HIGH Performed By: #### T SH, LIPID, CMP, FT3 #### [facility] [address] [place] [address] Dr. Gray Hunter Triglyceride [Mass/Vol] 147 mg/dL Normal <=150 [facility] Comment on above: Performed By: #### T SH, LIPID, CMP, FT3 #### [facility] [address] [place] [address] Dr. Gray Hunter VLDL CALC 29.4 mg/dL Normal [facility] Comment on above: Performed By: #### T SH, LIPID, CMP, FT3 #### [facility] [address] [place] [address] Dr. Gray Hunter PROF 14(COMP METB)on 023 Albumin [Mass/Vol] 3.5 g/dL Normal 3.4-5.0 [facility] Comment on above: Performed By: #### T SH, LIPID, CMP, FT3 #### [facility] [address] [place] [address] Dr. Gray Hunter Albumin/Globulin [Mass ratio] 1.0 {ratio} Normal [facility] Comment on above: Performed By: #### T SH, LIPID, CMP, FT3 #### [facility] [address] [place] [address] Dr. Gray Hunter ALP [Catalytic activity/Vol] 77 U/L Normal 46-116 [facility] Comment on above: Performed By: #### T SH, LIPID, CMP, FT3 #### [facility] [address] [place] [address] Dr. Gray Hunter ALT [Catalytic activity/Vol] 25 U/L Normal 16-63 [facility] Comment on above: Performed By: #### T SH, LIPID, CMP, FT3 #### [facility] [address] [place] [address] Dr. Gray Hunter Anion gap [Moles/Vol] 12.2 mmol/L Normal [facility] Comment on above: Performed By: #### T SH, LIPID, CMP, FT3 #### [facility] [address] [place] [address] Dr. Gray Hunter AST [Catalytic activity/Vol] 16 U/L Normal 15-37 [facility] Comment on above: Performed By: #### T SH, LIPID, CMP, FT3 #### [facility] [address] [place] [address] Dr. Gray Hunter Bilirubin [Mass/Vol] 0.3 mg/dL Normal 0.2-1.0 [facility] Comment on above: Performed By: #### T SH, LIPID, CMP, FT3 #### [facility] [address] [place] [address] Dr. Gray Hunter Calcium [Mass/Vol] 8.7 mg/dL Normal 8.5-10.1 [facility] Comment on above: Performed By: #### T SH, LIPID, CMP, FT3 #### [facility] [address] [place] [address] Dr. Gray Hunter Chloride [Moles/Vol] 106 mmol/L Normal 98-107 [facility] Comment on above: Performed By: #### T SH, LIPID, CMP, FT3 #### [facility] [address] [place] [address] Dr. Gray Hunter CO2 [Moles/Vol] 26.4 mmol/L Normal 21.0-32.0 [facility] Comment on above: Performed By: #### T SH, LIPID, CMP, FT3 #### [facility] [address] [place] [address] Dr. Gray Hunter Creatinine [Mass/Vol] 1.13 mg/dL Normal 0.70-1.30 [facility] Comment on above: Performed By: #### T SH, LIPID, CMP, FT3 #### [facility] [address] [place] [address] Dr. Gray Hunter EGFR-AF LIBERIAN >60 Normal >=60 [facility] Comment on above: Performed By: #### T SH, LIPID, CMP, FT3 #### [facility] [address] [place] [address] Dr. Gray Hunter EGFR-NON AF LIBERIAN >60 Normal >=60 [facility] Comment on above: Performed By: #### T SH, LIPID, CMP, FT3 #### [facility] [address] [place] [address] Dr. Gray Hunter Globulin (S) [Mass/Vol] 3.4 g/dL Normal [facility] Comment on above: Performed By: #### T SH, LIPID, CMP, FT3 #### [facility] [address] [place] [address] Dr. Gray Hunter Glucose [Mass/Vol] 105 mg/dL Normal 74-106 [facility] Comment on above: Performed By: #### T SH, LIPID, CMP, FT3 #### [facility] [address] [place] [address] Dr. Gray Hunter Potassium [Moles/Vol] 4.6 mmol/L Normal 3.5-5.1 [facility] Comment on above: Performed By: #### T SH, LIPID, CMP, FT3 #### [facility] [address] [place] [address] Dr. Gray Hunter Protein [Mass/Vol] 6.9 g/dL Normal 6.4-8.2 [facility] Comment on above: Performed By: #### T SH, LIPID, CMP, FT3 #### [facility] [address] [place] [address] Dr. Gray Hunter Sodium [Moles/Vol] 140 mmol/L Normal 136-145 [facility] Comment on above: Performed By: #### T SH, LIPID, CMP, FT3 #### [facility] [address] [place] [address] Dr. Gray Hunter Urea nitrogen [Mass/Vol] 14.0 mg/dL Normal 7.0-18.0 [facility] Comment on above: Performed By: #### T SH, LIPID, CMP, FT3 #### [facility] [address] [place] [address] Dr. Gray Hunter Urea nitrogen/Creatinine [Mass ratio] 12.4 mg/mg Normal [facility] Comment on above: Performed By: #### T SH, LIPID, CMP, FT3 #### [facility] [address] [place] [address] Dr. Gray Hunter TSHon 03-23-2022 TSH 1.365 uIU/mL Normal 0.358-3.740 [facility] Comment on above: Performed By: #### T SH, LIPID, CMP, FT3 #### [facility] [address] [place] [address] Dr. Gray Hunter CBC AUTO DIFFon 11-29-2021 BASO # 0.0 103/ul Normal 0.0-0.1 [facility] Comment on above: Performed By: #### C BC #### [facility] [address] [place] [address] Dr. Gray Hunter Basophils/100 WBC (Bld) 0.3 % Normal 0.2-2.0 [facility] Comment on above: Performed By: #### C BC #### [facility] [address] [place] [address] Dr. Gray Hunter EO # 0.1 103/ul Normal 0.0-0.7 [facility] Comment on above: Performed By: #### C BC #### [facility] [address] [place] [address] Dr. Gray Hunter Eosinophils/100 WBC (Bld) 2.0 % Normal 0.9-7.0 [facility] Comment on above: Performed By: #### C BC #### [facility] [address] [place] [address] Dr. Gray Hunter Erythrocyte distribution width (RBC) [Ratio] 12.6 % Normal 11.0-15.0 [facility] Comment on above: Performed By: #### C BC #### [facility] [address] [place] [address] Dr. Gray Hunter Hematocrit (Bld) [Volume fraction] 34.3 % Critically low 42.0-54.0 [facility] Comment on above: Performed By: #### C BC #### [facility] [address] [place] [address] Dr. Gray Hunter Hemoglobin (Bld) [Mass/Vol] 11.3 g/dL Critically low 14.0-18.0 [facility] Comment on above: Performed By: #### C BC #### [facility] [address] [place] [address] Dr. Gray Hunter IG # 0.01 10e3/ul Normal 0.00-0.03 [facility] Comment on above: Performed By: #### C BC #### [facility] [address] [place] [address] Dr. Gray Hunter IG % 0.2 % Normal 0.0-0.5 [facility] Comment on above: Performed By: #### C BC #### [facility] [address] [place] [address] Dr. Gray Hunter LYMPH # 0.8 103/ul Critically low 1.2-3.8 [facility] Comment on above: Performed By: #### C BC #### [facility] [address] [place] [address] Dr. Gray Hunter Lymphocytes/100 WBC (Bld) 13.0 % Critically low 20.5-60.0 [facility] Comment on above: Performed By: #### C BC #### [facility] [address] [place] [address] Dr. Gray Hunter MANUAL DIFF REQ NO Normal [facility] Comment on above: Performed By: #### C BC #### [facility] [address] [place] [address] Dr. Gray Hunter MCH (RBC) [Entitic mass] 29.5 pg Normal 25.9-34.0 [facility] Comment on above: Performed By: #### C BC #### [facility] [address] [place] [address] Dr. Gray Hunter MCHC (RBC) [Mass/Vol] 32.9 g/dL Normal 29.9-35.2 [facility] Comment on above: Performed By: #### C BC #### [facility] [address] [place] [address] Dr. Gray Hunter MCV (RBC) [Entitic vol] 89.6 fL Normal 80.0-94.0 [facility] Comment on above: Performed By: #### C BC #### [facility] [address] [place] [address] Dr. Gray Hunter MONO # 0.7 103/ul Normal 0.3-0.8 [facility] Comment on above: Performed By: #### C BC #### [facility] [address] [place] [address] Dr. Gray Hunter Monocytes/100 WBC (Bld) 10.4 % Normal 1.7-12.0 [facility] Comment on above: Performed By: #### C BC #### [facility] [address] [place] [address] Dr. Gray Hunter NEUT # 4.8 103/ul Normal 1.4-6.5 [facility] Comment on above: Performed By: #### C BC #### [facility] [address] [place] [address] Dr. Gray Hunter Neutrophils/100 WBC (Bld) 74.1 % Normal 43.0-75.0 [facility] Comment on above: Performed By: #### C BC #### [facility] [address] [place] [address] Dr. Gray Hunter Platelet mean volume (Bld) [Entitic vol] 10.4 fL Normal 9.5-13.5 [facility] Comment on above: Performed By: #### C BC #### [facility] [address] [place] [address] Dr. Gray Hunter PLT 219 103/ul Normal 150-450 [facility] Comment on above: Performed By: #### C BC #### [facility] [address] [place] [address] Dr. Gray Hunter RBC 3.83 106/ul Critically low 4.70-6.10 [facility] Comment on above: Performed By: #### C BC #### [facility] [address] [place] [address] Dr. Gray Hunter WBC 6.4 103/ul Normal 4.0-11.0 [facility] Comment on above: Performed By: #### C BC #### [facility] [address] [place] [address] Dr. Gray Hunter PROF 14(COMP METB)on 022 Albumin [Mass/Vol] 2.9 g/dL Critically low 3.4-5.0 [facility] Comment on above: Performed By: #### U MICRO, ERUR #### [facility] [address] [place] [address] Dr. Gray Hunter Albumin/Globulin [Mass ratio] 0.9 {ratio} Normal [facility] Comment on above: Performed By: #### U MICRO, ERUR #### [facility] [address] [place] [address] Dr. Gray Hunter ALP [Catalytic activity/Vol] 48 U/L Normal 46-116 [facility] Comment on above: Performed By: #### U MICRO, ERUR #### [facility] [address] [address] [address] Gray Hunter ALT [Catalytic activity/Vol] 21 U/L Normal 16-63 [facility] Comment on above: Performed By: #### U MICRO, ERUR #### [facility] [address] [address] [address] Gray Hunter Anion gap [Moles/Vol] 13.5 mmol/L Normal [facility] Comment on above: Performed By: #### U MICRO, ERUR #### [facility] [address] [address] [address] Gray Hunter AST [Catalytic activity/Vol] 18 U/L Normal 15-37 [facility] Comment on above: Performed By: #### U MICRO, ERUR #### [facility] [address] [place] [address] Dr. Gray Hunter Bilirubin [Mass/Vol] 0.2 mg/dL Normal 0.2-1.0 [facility] Comment on above: Performed By: #### U MICRO, ERUR #### [facility] [address] [address] [address] Gray Hunter Calcium [Mass/Vol] 8.1 mg/dL Critically low 8.5-10.1 [facility] Comment on above: Performed By: #### U MICRO, ERUR #### [facility] [address] [address] [address] Gray Hunter Chloride [Moles/Vol] 109 mmol/L Critically high 98-107 [facility] Comment on above: Performed By: #### U MICRO, ERUR #### [facility] [address] [address] [address] Gray Hunter CO2 [Moles/Vol] 21.5 mmol/L Normal 21.0-32.0 [facility] Comment on above: Performed By: #### U MICRO, ERUR #### [facility] [address] [address] [address] Gray Hunter Creatinine [Mass/Vol] 0.93 mg/dL Normal 0.70-1.30 [facility] Comment on above: Performed By: #### U MICRO, ERUR #### [facility] [address] [address] [address] Gray Hunter EGFR-AF LIBERIAN >60 Normal >=60 [facility] Comment on above: Performed By: #### U MICRO, ERUR #### [facility] [address] [address] [address] Gray Hunter EGFR-NON AF LIBERIAN >60 Normal >=60 [facility] Comment on above: Performed By: #### U MICRO, ERUR #### [facility] [address] [address] [address] Gray Hunter Globulin (S) [Mass/Vol] 3.2 g/dL Normal [facility] Comment on above: Performed By: #### U MICRO, ERUR #### [facility] [address] [address] [address] Gray Hunter Glucose [Mass/Vol] 88 mg/dL Normal 74-106 [facility] Comment on above: Performed By: #### U MICRO, ERUR #### [facility] [address] [address] [address] Gray Hunter Potassium [Moles/Vol] 4.0 mmol/L Normal 3.5-5.1 [facility] Comment on above: Performed By: #### U MICRO, ERUR #### [facility] [address] [address] [address] Gray Hunter Protein [Mass/Vol] 6.1 g/dL Critically low 6.4-8.2 [facility] Comment on above: Performed By: #### U MICRO, ERUR #### [facility] [address] [address] [address] Gray Hunter Sodium [Moles/Vol] 140 mmol/L Normal 136-145 [facility] Comment on above: Performed By: #### U MICRO, ERUR #### [facility] [address] [address] [address] Gray Hunter Urea nitrogen [Mass/Vol] 6.0 mg/dL Critically low 7.0-18.0 [facility] Comment on above: Performed By: #### U MICRO, ERUR #### [facility] [address] [place] [address] Dr. Gray Hunter Urea nitrogen/Creatinine [Mass ratio] 6.5 mg/mg Normal [facility] Comment on above: Performed By: #### U MICRO, ERUR #### [facility] [address] [place] [address] Dr. Gray Hunter PROTIMEon 11-29-2021 INR Coag (PPP) [Relative time] 2.87 {INR} Normal [facility] Comment on above: Performed By: #### U MICRO, ERUR #### [facility] [address] [place] [address] Dr. Gray Hunter INR GUIDELINES SEE BELOW Normal [facility] Comment on above: Result Comment: DENIS RED INR: 2.0 - 3.0 CONDITIONS NOT LISTED BELOW 2.5 - 3.5 FOR PROSTHETIC HEART VALVE REPLACEMENT 2.5 - 3.5 RECURRENT THROMBOSIS Performed By: #### U MICRO, ERUR #### [facility] [address] [place] [address] Dr. Gray Hunter PT Coag (PPP) [Time] 28.9 s Critically high 9.0-11.6 [facility] Comment on above: Performed By: #### U MICRO, ERUR #### [facility] [address] [place] [address] Dr. Gray Hunter CBC AUTO DIFFon 11-28-2021 BASO # 0.0 103/ul Normal 0.0-0.1 [facility] Comment on above: Performed By: #### U MICRO, ERUR #### [facility] [address] [place] [address] Dr. Gray Hunter Basophils/100 WBC (Bld) 0.5 % Normal 0.2-2.0 [facility] Comment on above: Performed By: #### U MICRO, ERUR #### [facility] [address] [place] [address] Dr. Gray Hunter EO # 0.2 103/ul Normal 0.0-0.7 [facility] Comment on above: Performed By: #### U MICRO, ERUR #### [facility] [address] [place] [address] Dr. Gray Hunter Eosinophils/100 WBC (Bld) 2.2 % Normal 0.9-7.0 [facility] Comment on above: Performed By: #### U MICRO, ERUR #### [facility] [address] [place] [address] Dr. Gray Hunter Erythrocyte distribution width (RBC) [Ratio] 12.8 % Normal 11.0-15.0 [facility] Comment on above: Performed By: #### U MICRO, ERUR #### [facility] [address] [place] [address] Dr. Gray Hunter Hematocrit (Bld) [Volume fraction] 35.0 % Critically low 42.0-54.0 [facility] Comment on above: Performed By: #### U MICRO, ERUR #### [facility] [address] [place] [address] Dr. Gray Hunter Hemoglobin (Bld) [Mass/Vol] 11.1 g/dL Critically low 14.0-18.0 [facility] Comment on above: Performed By: #### U MICRO, ERUR #### [facility] [address] [place] [address] Dr. Gray Hunter IG # 0.04 10e3/ul Critically high 0.00-0.03 [facility] Comment on above: Performed By: #### U MICRO, ERUR #### [facility] [address] [place] [address] Dr. Gray Hunter IG % 0.5 % Normal 0.0-0.5 [facility] Comment on above: Performed By: #### U MICRO, ERUR #### [facility] [address] [place] [address] Dr. Gray Hunter LYMPH # 0.9 103/ul Critically low 1.2-3.8 [facility] Comment on above: Performed By: #### U MICRO, ERUR #### [facility] [address] [place] [address] Dr. Gray Hunter Lymphocytes/100 WBC (Bld) 10.7 % Critically low 20.5-60.0 [facility] Comment on above: Performed By: #### U MICRO, ERUR #### [facility] [address] [place] [address] Dr. Gray Hunter MANUAL DIFF REQ NO Normal [facility] Comment on above: Performed By: #### U MICRO, ERUR #### [facility] [address] [place] [address] Dr. Gray Hunter MCH (RBC) [Entitic mass] 29.0 pg Normal 25.9-34.0 [facility] Comment on above: Performed By: #### U MICRO, ERUR #### [facility] [address] [place] [address] Dr. Gray Hunter MCHC (RBC) [Mass/Vol] 31.7 g/dL Normal 29.9-35.2 [facility] Comment on above: Performed By: #### U MICRO, ERUR #### [facility] [address] [place] [address] Dr. Gray Hunter MCV (RBC) [Entitic vol] 91.4 fL Normal 80.0-94.0 [facility] Comment on above: Performed By: #### U MICRO, ERUR #### [facility] [address] [place] [address] Dr. Gray Hunter MONO # 0.7 103/ul Normal 0.3-0.8 [facility] Comment on above: Performed By: #### U MICRO, ERUR #### [facility] [address] [place] [address] Dr. Gray Hunter Monocytes/100 WBC (Bld) 8.5 % Normal 1.7-12.0 [facility] Comment on above: Performed By: #### U MICRO, ERUR #### [facility] [address] [place] [address] Dr. Gray Hunter NEUT # 6.3 103/ul Normal 1.4-6.5 [facility] Comment on above: Performed By: #### U MICRO, ERUR #### [facility] [address] [place] [address] Dr. Gray Hunter Neutrophils/100 WBC (Bld) 77.6 % Critically high 43.0-75.0 [facility] Comment on above: Performed By: #### U MICRO, ERUR #### [facility] [address] [address] [address] Gray Hunter Platelet mean volume (Bld) [Entitic vol] 10.5 fL Normal 9.5-13.5 [facility] Comment on above: Performed By: #### U MICRO, ERUR #### [facility] [address] [address] [address] Gray Hunter PLT 190 103/ul Normal 150-450 [facility] Comment on above: Performed By: #### U MICRO, ERUR #### [facility] [address] [place] [address] Dr. Gray Hunter RBC 3.83 106/ul Critically low 4.70-6.10 [facility] Comment on above: Performed By: #### U MICRO, ERUR #### [facility] [address] [address] [address] Gray Hunter WBC 8.2 103/ul Normal 4.0-11.0 [facility] Comment on above: Performed By: #### U MICRO, ERUR #### [facility] [address] [address] [address] Gray Hunter PROF 14(COMP METB)on 022 Albumin [Mass/Vol] 2.9 g/dL Critically low 3.4-5.0 [facility] Comment on above: Performed By: #### U MICRO, ERUR #### [facility] [address] [address] [address] Gray Hunter Albumin/Globulin [Mass ratio] 0.9 {ratio} Normal [facility] Comment on above: Performed By: #### U MICRO, ERUR #### [facility] [address] [address] [address] Gray Hunter ALP [Catalytic activity/Vol] 52 U/L Normal 46-116 [facility] Comment on above: Performed By: #### U MICRO, ERUR #### [facility] [address] [address] [address] Gray Hunter ALT [Catalytic activity/Vol] 21 U/L Normal 16-63 [facility] Comment on above: Performed By: #### U MICRO, ERUR #### [facility] [address] [address] [address] Gray Hunter Anion gap [Moles/Vol] 14.3 mmol/L Normal [facility] Comment on above: Performed By: #### U MICRO, ERUR #### [facility] [address] [address] [address] Gray Hunter AST [Catalytic activity/Vol] 13 U/L Critically low 15-37 [facility] Comment on above: Performed By: #### U MICRO, ERUR #### [facility] [address] [place] [address] Dr. Gray Hunter Bilirubin [Mass/Vol] 0.4 mg/dL Normal 0.2-1.0 [facility] Comment on above: Performed By: #### U MICRO, ERUR #### [facility] [address] [address] [address] Gray Hunter Calcium [Mass/Vol] 7.5 mg/dL Critically low 8.5-10.1 [facility] Comment on above: Performed By: #### U MICRO, ERUR #### [facility] [address] [address] [address] Gray Hunter Chloride [Moles/Vol] 109 mmol/L Critically high 98-107 [facility] Comment on above: Performed By: #### U MICRO, ERUR #### [facility] [address] [address] [address] Gray Hunter CO2 [Moles/Vol] 19.3 mmol/L Critically low 21.0-32.0 [facility] Comment on above: Performed By: #### U MICRO, ERUR #### [facility] [address] [address] [address] Gray Hunter Creatinine [Mass/Vol] 0.93 mg/dL Normal 0.70-1.30 [facility] Comment on above: Performed By: #### U MICRO, ERUR #### [facility] [address] [address] [address] Gray Hunter EGFR-AF LIBERIAN >60 Normal >=60 [facility] Comment on above: Performed By: #### U MICRO, ERUR #### [facility] [address] [address] [address] Gray Hunter EGFR-NON AF LIBERIAN >60 Normal >=60 [facility] Comment on above: Performed By: #### U MICRO, ERUR #### [facility] [address] [address] [address] Gray Hunter Globulin (S) [Mass/Vol] 3.2 g/dL Normal [facility] Comment on above: Performed By: #### U MICRO, ERUR #### [facility] [address] [place] [address] Dr. Gray Hunter Glucose [Mass/Vol] 81 mg/dL Normal 74-106 [facility] Comment on above: Performed By: #### U MICRO, ERUR #### [facility] [address] [address] [address] Gray Hunter Potassium [Moles/Vol] 3.6 mmol/L Normal 3.5-5.1 [facility] Comment on above: Performed By: #### U MICRO, ERUR #### [facility] [address] [address] [address] Gray Hunter Protein [Mass/Vol] 6.1 g/dL Critically low 6.4-8.2 [facility] Comment on above: Performed By: #### U MICRO, ERUR #### [facility] [address] [address] [address] Gray Hunter Sodium [Moles/Vol] 139 mmol/L Normal 136-145 [facility] Comment on above: Performed By: #### U MICRO, ERUR #### [facility] [address] [address] [address] Gray Hunter Urea nitrogen [Mass/Vol] 9.0 mg/dL Normal 7.0-18.0 [facility] Comment on above: Performed By: #### U MICRO, ERUR #### [facility] [address] [place] [address] Dr. Gray Hunter Urea nitrogen/Creatinine [Mass ratio] 9.7 mg/mg Normal [facility] Comment on above: Performed By: #### U MICRO, ERUR #### [facility] [address] [place] [address] Dr. Gray Hunter PROTIMEon 11-28-2021 INR Coag (PPP) [Relative time] 1.81 {INR} Normal [facility] Comment on above: Performed By: #### U MICRO, ERUR #### [facility] [address] [place] [address] Dr. Gray Hutner INR GUIDELINES SEE BELOW Normal [facility] Comment on above: Result Comment: DENIS RED INR: 2.0 - 3.0 CONDITIONS NOT LISTED BELOW 2.5 - 3.5 FOR PROSTHETIC HEART VALVE REPLACEMENT 2.5 - 3.5 RECURRENT THROMBOSIS Performed By: #### U MICRO, ERUR #### [facility] [address] [place] [address] Dr. Gray Hunter PT Coag (PPP) [Time] 18.8 s Critically high 9.0-11.6 [facility] Comment on above: Performed By: #### U MICRO, ERUR #### [facility] [address] [place] [address] Dr. Gray Hunter CBC AUTO DIFFon 11-27-2021 BASO # 0.0 103/ul Normal 0.0-0.1 [facility] Comment on above: Performed By: #### U MICRO, ERUR #### [facility] [address] [place] [address] Dr. Gray Hunter Basophils/100 WBC (Bld) 0.5 % Normal 0.2-2.0 [facility] Comment on above: Performed By: #### U MICRO, ERUR #### [facility] [address] [place] [address] Dr. Gray Hunter EO # 0.1 103/ul Normal 0.0-0.7 [facility] Comment on above: Performed By: #### U MICRO, ERUR #### [facility] [address] [place] [address] Dr. Gray Hunter Eosinophils/100 WBC (Bld) 0.6 % Critically low 0.9-7.0 [facility] Comment on above: Performed By: #### U MICRO, ERUR #### [facility] [address] [place] [address] Dr. Gray Hunter Erythrocyte distribution width (RBC) [Ratio] 13.1 % Normal 11.0-15.0 [facility] Comment on above: Performed By: #### U MICRO, ERUR #### [facility] [address] [place] [address] Dr. Gray Hunter Hematocrit (Bld) [Volume fraction] 34.3 % Critically low 42.0-54.0 [facility] Comment on above: Performed By: #### U MICRO, ERUR #### [facility] [address] [place] [address] Dr. Gray Hunter Hemoglobin (Bld) [Mass/Vol] 11.0 g/dL Critically low 14.0-18.0 [facility] Comment on above: Performed By: #### U MICRO, ERUR #### [facility] [address] [place] [address] Dr. Gray Hunter IG # 0.03 10e3/ul Normal 0.00-0.03 [facility] Comment on above: Performed By: #### U MICRO, ERUR #### [facility] [address] [place] [address] Dr. Gray Hunter IG % 0.4 % Normal 0.0-0.5 [facility] Comment on above: Performed By: #### U MICRO, ERUR #### [facility] [address] [place] [address] Dr. Gray Hunter LYMPH # 1.2 103/ul Normal 1.2-3.8 [facility] Comment on above: Performed By: #### U MICRO, ERUR #### [facility] [address] [place] [address] Dr. Gray Hunter Lymphocytes/100 WBC (Bld) 14.8 % Critically low 20.5-60.0 [facility] Comment on above: Performed By: #### U MICRO, ERUR #### [facility] [address] [place] [address] Dr. Gray Hunter MANUAL DIFF REQ NO Normal [facility] Comment on above: Performed By: #### U MICRO, ERUR #### [facility] [address] [place] [address] Dr. Gray Hunter MCH (RBC) [Entitic mass] 29.3 pg Normal 25.9-34.0 [facility] Comment on above: Performed By: #### U MICRO, ERUR #### [facility] [address] [place] [address] Dr. Gray Hunter MCHC (RBC) [Mass/Vol] 32.1 g/dL Normal 29.9-35.2 [facility] Comment on above: Performed By: #### U MICRO, ERUR #### [facility] [address] [place] [address] Dr. Gray Hunter MCV (RBC) [Entitic vol] 91.2 fL Normal 80.0-94.0 [facility] Comment on above: Performed By: #### U MICRO, ERUR #### [facility] [address] [place] [address] Dr. Gray Hunter MONO # 0.8 103/ul Normal 0.3-0.8 [facility] Comment on above: Performed By: #### U MICRO, ERUR #### [facility] [address] [place] [address] Dr. Gray Hunter Monocytes/100 WBC (Bld) 10.2 % Normal 1.7-12.0 [facility] Comment on above: Performed By: #### U MICRO, ERUR #### [facility] [address] [place] [address] Dr. Gray Hunter NEUT # 5.8 103/ul Normal 1.4-6.5 [facility] Comment on above: Performed By: #### U MICRO, ERUR #### [facility] [address] [place] [address] Dr. Gray Hunter Neutrophils/100 WBC (Bld) 73.5 % Normal 43.0-75.0 [facility] Comment on above: Performed By: #### U MICRO, ERUR #### [facility] [address] [place] [address] Dr. Gray Hunter Platelet mean volume (Bld) [Entitic vol] 10.4 fL Normal 9.5-13.5 [facility] Comment on above: Performed By: #### U MICRO, ERUR #### [facility] [address] [place] [address] Dr. Gray Hunter PLT 188 103/ul Normal 150-450 [facility] Comment on above: Performed By: #### U MICRO, ERUR #### [facility] [address] [place] [address] Dr. Gray Hunter RBC 3.76 106/ul Critically low 4.70-6.10 [facility] Comment on above: Performed By: #### U MICRO, ERUR #### [facility] [address] [place] [address] Dr. Gray Hunter WBC 7.8 103/ul Normal 4.0-11.0 [facility] Comment on above: Performed By: #### U MICRO, ERUR #### [facility] [address] [place] [address] Dr. Gray Hunter PROF 14(COMP METB)on 022 Albumin [Mass/Vol] 2.8 g/dL Critically low 3.4-5.0 [facility] Comment on above: Performed By: #### C MP #### [facility] [address] [place] [address] Dr. Gray Hunter Albumin/Globulin [Mass ratio] 0.9 {ratio} Normal [facility] Comment on above: Performed By: #### C MP #### [facility] [address] [place] [address] Dr. Gray uHnter ALP [Catalytic activity/Vol] 53 U/L Normal 46-116 [facility] Comment on above: Performed By: #### C MP #### [facility] [address] [address] [address] Gray Hunter ALT [Catalytic activity/Vol] 20 U/L Normal 16-63 [facility] Comment on above: Performed By: #### C MP #### [facility] [address] [place] [address] Dr. Gray Hunter Anion gap [Moles/Vol] 11.0 mmol/L Normal [facility] Comment on above: Performed By: #### C MP #### [facility] [address] [address] [address] Gray Hunter AST [Catalytic activity/Vol] 12 U/L Critically low 15-37 [facility] Comment on above: Performed By: #### C MP #### [facility] [address] [place] [address] Dr. Gray Hunter Bilirubin [Mass/Vol] 0.6 mg/dL Normal 0.2-1.0 [facility] Comment on above: Performed By: #### C MP #### [facility] [address] [place] [address] Dr. Gray Hunter Calcium [Mass/Vol] 7.6 mg/dL Critically low 8.5-10.1 [facility] Comment on above: Performed By: #### C MP #### [facility] [address] [place] [address] Dr. Gray Hunter Chloride [Moles/Vol] 109 mmol/L Critically high 98-107 [facility] Comment on above: Performed By: #### C MP #### [facility] [address] [place] [address] Dr. Gray Hunter CO2 [Moles/Vol] 22.8 mmol/L Normal 21.0-32.0 [facility] Comment on above: Performed By: #### C MP #### [facility] [address] [place] [address] Dr. Gray Hunter Creatinine [Mass/Vol] 1.01 mg/dL Normal 0.70-1.30 [facility] Comment on above: Performed By: #### C MP #### [facility] [address] [place] [address] Dr. Gray Hunter EGFR-AF LIBERIAN >60 Normal >=60 [facility] Comment on above: Performed By: #### C MP #### [facility] [address] [address] [address] Gray Hunter EGFR-NON AF LIBERIAN >60 Normal >=60 [facility] Comment on above: Performed By: #### C MP #### [facility] [address] [address] [address] Gray Hunter Globulin (S) [Mass/Vol] 3.2 g/dL Normal [facility] Comment on above: Performed By: #### C MP #### [facility] [address] [address] [address] Gray Hunter Glucose [Mass/Vol] 83 mg/dL Normal 74-106 [facility] Comment on above: Performed By: #### C MP #### [facility] [address] [place] [address] Dr. Gray Hunter Potassium [Moles/Vol] 3.8 mmol/L Normal 3.5-5.1 [facility] Comment on above: Performed By: #### C MP #### [facility] [address] [address] [address] Gray Hunter Protein [Mass/Vol] 6.0 g/dL Critically low 6.4-8.2 [facility] Comment on above: Performed By: #### C MP #### [facility] [address] [address] [address] Gray Hunter Sodium [Moles/Vol] 139 mmol/L Normal 136-145 [facility] Comment on above: Performed By: #### C MP #### [facility] [address] [address] [address] Gray Hunter Urea nitrogen [Mass/Vol] 11.0 mg/dL Normal 7.0-18.0 [facility] Comment on above: Performed By: #### C MP #### [facility] [address] [address] [address] Gray Hunter Urea nitrogen/Creatinine [Mass ratio] 10.9 mg/mg Normal [facility] Comment on above: Performed By: #### C MP #### [facility] [address] [place] [address] Dr. Gray Hunter PROTIMEon 11-27-2021 INR Coag (PPP) [Relative time] 1.71 {INR} Normal [facility] Comment on above: Performed By: #### P T #### [facility] [address] [place] [address] Dr. Gray Hunter INR GUIDELINES SEE BELOW Normal [facility] Comment on above: Result Comment: DENIS RED INR: 2.0 - 3.0 CONDITIONS NOT LISTED BELOW 2.5 - 3.5 FOR PROSTHETIC HEART VALVE REPLACEMENT 2.5 - 3.5 RECURRENT THROMBOSIS Performed By: #### P T #### [facility] [address] [place] [address] Dr. Gray Hunter PT Coag (PPP) [Time] 17.8 s Critically high 9.0-11.6 [facility] Comment on above: Performed By: #### P T #### [facility] [address] [place] [address] Dr. Gray Hunter AMYLASEon 11-26-2021 Amylase [Catalytic activity/Vol] 60 U/L Normal 25-115 [facility] Comment on above: Performed By: #### U MICRO, ERUR #### [facility] [address] [place] [address] Dr. Gray Hunter CARDIAC SAMIRA ADMITon 022 CK [Catalytic activity/Vol] 62 U/L Normal 39-308 [facility] Comment on above: Performed By: #### U MICRO, ERUR #### [facility] [address] [place] [address] Dr. Gray Hunter CK.MB [Mass/Vol] 0.55 ng/mL Normal <=3.60 [facility] Comment on above: Performed By: #### U MICRO, ERUR #### [facility] [address] [place] [address] Dr. Gray Hunter HSTROP 7.4 pg/mL Normal 4.0-76.1 [facility] Comment on above: Result Comment: CUT- OFF POINTS HAVE BEEN ESTABLISHED BASED ON THE FOURTH UNIVERSAL DEFINITIONS OF MYOCARDIAL INFARCTION. THE UPPER REFERENCE LIMIT (URL) OF TROPONIN, DEFINED THE 99TH PERCENTILE OF cTnI DISTRIBUTION IN A REFERENCE POPULATION, HAS BEEN CONFIRMED THE DECISION THRESHOLD FOR AR DIAGNOSIS. Performed By: #### U MICRO, ERUR #### [facility] [address] [address] [address] Gray Hunter KASSANDRA 64 ng/mL Normal 16-96 [facility] Comment on above: Performed By: #### U MICRO, ERUR #### [facility] [address] [address] [address] Gray Hunter CBC AUTO DIFFon 11-26-2021 BASO # 0.0 103/ul Normal 0.0-0.1 [facility] Comment on above: Performed By: #### C BC #### [facility] [address] [place] [address] Dr. Gray Hunter Basophils/100 WBC (Bld) 0.3 % Normal 0.2-2.0 [facility] Comment on above: Performed By: #### C BC #### [facility] [address] [place] [address] Dr. Gray Hunter EO # 0.0 103/ul Normal 0.0-0.7 [facility] Comment on above: Performed By: #### C BC #### [facility] [address] [address] [address] Gray Hunter Eosinophils/100 WBC (Bld) 0.3 % Critically low 0.9-7.0 [facility] Comment on above: Performed By: #### C BC #### [facility] [address] [place] [address] Dr. Gray Hunter Erythrocyte distribution width (RBC) [Ratio] 13.0 % Normal 11.0-15.0 [facility] Comment on above: Performed By: #### C BC #### [facility] [address] [place] [address] Dr. Gray Hunter Hematocrit (Bld) [Volume fraction] 39.4 % Critically low 42.0-54.0 [facility] Comment on above: Performed By: #### C BC #### [facility] [address] [place] [address] Dr. Gray Hunter Hemoglobin (Bld) [Mass/Vol] 12.7 g/dL Critically low 14.0-18.0 [facility] Comment on above: Performed By: #### C BC #### [facility] [address] [place] [address] Dr. Gray Hunter IG # 0.07 10e3/ul Critically high 0.00-0.03 [facility] Comment on above: Performed By: #### C BC #### [facility] [address] [place] [address] Dr. Gray Hunter IG % 0.5 % Normal 0.0-0.5 [facility] Comment on above: Performed By: #### C BC #### [facility] [address] [place] [address] Dr. Gray Hunter LYMPH # 1.4 103/ul Normal 1.2-3.8 [facility] Comment on above: Performed By: #### C BC #### [facility] [address] [place] [address] Dr. Gray Hunter Lymphocytes/100 WBC (Bld) 10.7 % Critically low 20.5-60.0 [facility] Comment on above: Performed By: #### C BC #### [facility] [address] [place] [address] Dr. Gray Hunter MANUAL DIFF REQ NO Normal [facility] Comment on above: Performed By: #### C BC #### [facility] [address] [place] [address] Dr. Gray Hunter MCH (RBC) [Entitic mass] 29.5 pg Normal 25.9-34.0 [facility] Comment on above: Performed By: #### C BC #### [facility] [address] [place] [address] Dr. Gray Hunter MCHC (RBC) [Mass/Vol] 32.2 g/dL Normal 29.9-35.2 [facility] Comment on above: Performed By: #### C BC #### [facility] [address] [place] [address] Dr. Gray Hunter MCV (RBC) [Entitic vol] 91.4 fL Normal 80.0-94.0 [facility] Comment on above: Performed By: #### C BC #### [facility] [address] [place] [address] Dr. Gray Hunter MONO # 1.4 103/ul Critically high 0.3-0.8 [facility] Comment on above: Performed By: #### C BC #### [facility] [address] [place] [address] Dr. Gray Hunter Monocytes/100 WBC (Bld) 10.4 % Normal 1.7-12.0 [facility] Comment on above: Performed By: #### C BC #### [facility] [address] [place] [address] Dr. Gray Hunter NEUT # 10.1 103/ul Critically high 1.4-6.5 [facility] Comment on above: Performed By: #### C BC #### [facility] [address] [place] [address] Dr. Gray Hunter Neutrophils/100 WBC (Bld) 77.8 % Critically high 43.0-75.0 [facility] Comment on above: Performed By: #### C BC #### [facility] [address] [place] [address] Dr. Gray Hunter Platelet mean volume (Bld) [Entitic vol] 10.7 fL Normal 9.5-13.5 [facility] Comment on above: Performed By: #### C BC #### [facility] [address] [place] [address] Dr. Gray Hunter PLT 230 103/ul Normal 150-450 [facility] Comment on above: Performed By: #### C BC #### [facility] [address] [place] [address] Dr. Gray Hunter RBC 4.31 106/ul Critically low 4.70-6.10 [facility] Comment on above: Performed By: #### C BC #### [facility] [address] [place] [address] Dr. Gray Hunter WBC 13.0 103/ul Critically high 4.0-11.0 [facility] Comment on above: Performed By: #### C #### [facility] [address] [address] [address] ABD/PELVIS WO CONon [...] ALECIA GOODSON Date: 2021-11-26 11:39 Normal [facility] Covid-19 PCR (CVDTB)on 11-06 SARS-CoV-2 (COVID-19) RNA NATALI+probe Ql (Unsp spec) Not detected Normal NOT DETECTED [facility] Comment on above: Result Comment: When diagnostic [...] for this test is supported by the Investigations Director of Health and Human Service's declaration that [...] Performed By: #### U MICRO, ERUR #### [facility] [address] [place] [address] Dr. Gray Hunter ER URINE PROFILEon 2 Bilirubin Ql (U) SMALL Abnormal NEGATIVE [facility] Comment on above: Performed By: #### U MICRO, ERUR #### [facility] [address] [place] [address] Dr. Gray Hunter Clarity (U) CLEAR Normal CLEAR [facility] Comment on above: Performed By: #### U MICRO, ERUR #### [facility] [address] [place] [address] Dr. Gray Hunter Color (U) YELLOW Normal YELLOW [facility] Comment on above: Performed By: #### U MICRO, ERUR #### [facility] [address] [place] [address] Dr. Gray Hunter ERUAHD A micrscopic examina tion will be performed if indicated. Normal [facility] Comment on above: Performed By: #### U MICRO, ERUR #### [facility] [address] [place] [address] Dr. Gray Hunter Glucose Ql (U) Negative Normal NEGATIVE [facility] Comment on above: Performed By: #### U MICRO, ERUR #### [facility] [address] [place] [address] Dr. Gray Hunter Hemoglobin Ql (U) MODERATE Abnormal NEGATIVE [facility] Comment on above: Performed By: #### U MICRO, ERUR #### [facility] [address] [place] [address] Dr. Gray Hunter Ketones Ql (U) TRACE Abnormal NEGATIVE [facility] Comment on above: Performed By: #### U MICRO, ERUR #### [facility] [address] [place] [address] Dr. Gray Hunter LEUKOCYTES Negative Normal NEGATIVE [facility] Comment on above: Performed By: #### U MICRO, ERUR #### [facility] [address] [place] [address] Dr. Gray Hunter Nitrite Ql (U) Negative Normal NEGATIVE [facility] Comment on above: Performed By: #### U MICRO, ERUR #### [facility] [address] [place] [address] Dr. Gray Hunter pH (U) 5.5 [pH] Normal 5-9 [facility] Comment on above: Performed By: #### U MICRO, ERUR #### [facility] [address] [place] [address] Dr. Gray Hunter SPEC GRAVITY >=1.030 Abnormal 1.005-<=1.025 [facility] Comment on above: Performed By: #### U MICRO, ERUR #### [facility] [address] [place] [address] Dr. Gray Hunter UA PROTEIN TRACE Normal NEGATIVE/ TRACE [facility] Comment on above: Performed By: #### U MICRO, ERUR #### [facility] [address] [place] [address] Dr. Gray Hunter UR MICRO IND INDICATED Normal [facility] Comment on above: Performed By: #### U MICRO, ERUR #### [facility] [address] [place] [address] Dr. Gray Hunter Urobilinogen Qn (U) 0.2 {Sanjana'U}/dL Normal 0.2 - 1. 0 [facility] Comment on above: Performed By: #### U MICRO, ERUR #### [facility] [address] [address] [address] Gray Hunter LIPASEon 11-26-2021 Lipase [Catalytic activity/Vol] 107.0 U/L Normal 73.0-393.0 [facility] Comment on above: Performed By: #### U MICRO, ERUR #### [facility] [address] [address] [address] Gray Hunter PROF 14(COMP METB)on 022 Albumin [Mass/Vol] 3.5 g/dL Normal 3.4-5.0 [facility] Comment on above: Performed By: #### U MICRO, ERUR #### [facility] [address] [address] [address] Gray Hunter Albumin/Globulin [Mass ratio] 1.0 {ratio} Normal [facility] Comment on above: Performed By: #### U MICRO, ERUR #### [facility] [address] [place] [address] Dr. Gray Hunter ALP [Catalytic activity/Vol] 67 U/L Normal 46-116 [facility] Comment on above: Performed By: #### U MICRO, ERUR #### [facility] [address] [address] [address] Gray Hunter ALT [Catalytic activity/Vol] 28 U/L Normal 16-63 [facility] Comment on above: Performed By: #### U MICRO, ERUR #### [facility] [address] [address] [address] Gray Hunter Anion gap [Moles/Vol] 10.7 mmol/L Normal [facility] Comment on above: Performed By: #### U MICRO, ERUR #### [facility] [address] [address] [address] Gray Hunter AST [Catalytic activity/Vol] 14 U/L Critically low 15-37 [facility] Comment on above: Performed By: #### U MICRO, ERUR #### [facility] [address] [place] [address] Dr. Gray Hunter Bilirubin [Mass/Vol] 0.8 mg/dL Normal 0.2-1.0 [facility] Comment on above: Performed By: #### U MICRO, ERUR #### [facility] [address] [address] [address] Gray Hunter Calcium [Mass/Vol] 8.4 mg/dL Critically low 8.5-10.1 Th [facility] Comment on above: Performed By: #### U MICRO, ERUR #### [facility] [address] [address] [address] Gray Hunter Chloride [Moles/Vol] 106 mmol/L Normal 98-107 [facility] Comment on above: Performed By: #### U MICRO, ERUR #### [facility] [address] [address] [address] Gray Hunter CO2 [Moles/Vol] 24.3 mmol/L Normal 21.0-32.0 [facility] Comment on above: Performed By: #### U MICRO, ERUR #### [facility] [address] [address] [address] Gray Hunter Creatinine [Mass/Vol] 1.16 mg/dL Normal 0.70-1.30 [facility] Comment on above: Performed By: #### U MICRO, ERUR #### [facility] [address] [place] [address] Dr. Gray Hunter EGFR-AF LIBERIAN >60 Normal >=60 [facility] Comment on above: Performed By: #### U MICRO, ERUR #### [facility] [address] [address] [address] Gray Hunter EGFR-NON AF LIBERIAN >60 Normal >=60 [facility] Comment on above: Performed By: #### U MICRO, ERUR #### [facility] [address] [address] [address] Gray Hunter Globulin (S) [Mass/Vol] 3.6 g/dL Normal [facility] Comment on above: Performed By: #### U MICRO, ERUR #### [facility] [address] [place] [address] Dr. Gray Hunter Glucose [Mass/Vol] 109 mg/dL Critically high 74-106 [facility] Comment on above: Performed By: #### U MICRO, ERUR #### [facility] [address] [address] [address] Gray Hunter Potassium [Moles/Vol] 4.0 mmol/L Normal 3.5-5.1 [facility] Comment on above: Performed By: #### U MICRO, ERUR #### [facility] [address] [place] [address] Dr. Gray Hunter Protein [Mass/Vol] 7.1 g/dL Normal 6.4-8.2 [facility] Comment on above: Performed By: #### U MICRO, ERUR #### [facility] [address] [place] [address] Dr. Gray Hunter Sodium [Moles/Vol] 137 mmol/L Normal 136-145 [facility] Comment on above: Performed By: #### U MICRO, ERUR #### [facility] [address] [place] [address] Dr. Gray Hunter Urea nitrogen [Mass/Vol] 13.0 mg/dL Normal 7.0-18.0 [facility] Comment on above: Performed By: #### U MICRO, ERUR #### [facility] [address] [place] [address] Dr. Gray Hunter Urea nitrogen/Creatinine [Mass ratio] 11.2 mg/mg Normal [facility] Comment on above: Performed By: #### U MICRO, ERUR #### [facility] [address] [place] [address] Dr. Gray Hunter PROTIMEon 11-26-2021 INR Coag (PPP) [Relative time] 2.18 {INR} Normal [facility] Comment on above: Performed By: #### U MICRO, ERUR #### [facility] [address] [place] [address] Dr. Gray Hunter INR GUIDELINES SEE BELOW Normal [facility] Comment on above: Result Comment: DENIS RED INR: 2.0 - 3.0 CONDITIONS NOT LISTED BELOW 2.5 - 3.5 FOR PROSTHETIC HEART VALVE REPLACEMENT 2.5 - 3.5 RECURRENT THROMBOSIS Performed By: #### U MICRO, ERUR #### [facility] [address] [address] [address] Gray Hunter PT Coag (PPP) [Time] 22.4 s Critically high 9.0-11.6 [facility] Comment on above: Performed By: #### U MICRO, ERUR #### [facility] [address] [place] [address] Dr. Gray Hunter PTTon 11-26-2021 aPTT Coag (Bld) [Time] 49.5 s Critically high 22.3-36.2 [facility] Comment on above: Performed By: #### U MICRO, ERUR #### [facility] [address] [place] [address] Dr. Gray Hunter URINE MICROSCOPIC ONLYon BACTERIA TRACE Abnormal NONE SEEN [facility] Comment on above: Performed By: #### U MICRO, ERUR #### [facility] [address] [place] [address] Dr. Gray Hunter Bacteria identified Cx Nom (U) NOT INDICATED Normal [facility] Comment on above: Performed By: #### U MICRO, ERUR #### [facility] [address] [place] [address] Dr. Gray Hunter CAST NONE SEEN Normal NONE SEEN [facility] Comment on above: Performed By: #### U MICRO, ERUR #### [facility] [address] [place] [address] Dr. Gray Hunter Crystals LM Nom (Urine sed) NONE SEEN Normal NONE SEEN [facility] Comment on above: Performed By: #### U MICRO, ERUR #### [facility] [address] [place] [address] Dr. Gray Hunter Epithelial cells LM Ql (Urine sed) RARE Normal NONE SEEN /RARE [facility] Comment on above: Performed By: #### U MICRO, ERUR #### [facility] [address] [place] [address] Dr. Gray Hunter MUCOUS MODERATE Abnormal NONE SEEN [facility] Comment on above: Performed By: #### U MICRO, ERUR #### [facility] [address] [place] [address] Dr. Gray Hunter RBC 0-2 Normal 0-2 [facility] Comment on above: Performed By: #### U MICRO, ERUR #### [facility] [address] [address] [address] Gray Hunter WBC 2-5 Abnormal NONE SEEN [facility] Comment on above: Performed By: #### U MICRO, ERUR #### [facility] [address] [address] [address] Gray Hunter Coding Summaryon 03-14-2019 Coding Summary CODING DATE: 020 [facility] STATUS: Home PAYOR: Medicaid HMO ADMIT DX: REASON FOR VISIT DX: M77.11 Lateral epicondylitis, right elbow FINAL DX: PRINCIPAL: M77.11 Lateral epicondylitis, right elbow SECONDARY: PYMT PROC APC STAT DESCRIPTION DOCTOR NAME DATE 96616 Tenotomy, elbow, lateral STEPANIC, DAMIAN 03/08/2019 or medial (eg, epicondylitis, tennis elbow, [...] Marychuy Wright Date Saved: 03/14/2019 11:57 am [facility] History and Physicalon 03-12 History and Physical [id number]#1.00[facility] Consent Formson 03-09-2019 Consent Forms [id number]#1.00[facility] Consent Forms [id number]#1.00[facility] Outside Recordson 03-09-2019 Outside Records [id number]#1.00[facility] Telemetry Stripson 0 Telemetry Strips [id number] 1060 [id number]#1.00[facility] TIFF Normal [facility] Anesthesia Noteon 03-08-2019 Anesthesia Note Patient: Celestina [...] history): All Problems Asthma / SNOMED CT 620690650 / Confirmed GERD (gastroesophageal reflux disease) / SNOMED CT 247489277 / Confirmed Migraine / SNOMED CT 096790467 / Confirmed Hypertension / SNOMED CT 8056470211 / Confirmed Histories Family History: No family history items have been selected or recorded. Procedure history: Tooth extraction ([id number]). Comments: 02/23/2019 10:37 Ginny Rene RN all teeth Rotator cuff ([id number]). Comments: 02/23/2019 10:37 Ginny Rene RN left Trigger finger of both hands ([id number]). Comments: 02/23/2019 10:38 Ginny Rene RN ring fingers biltat Carpal tunnel release (507280935). Comments: 02/23/2019 10:38 Ginny Rene RN right wrist Arthroscopy (32603083). Comments: 02/23/2019 10:39 Ginny Rene RN right knee with OCL repair Great toe (953706022). Comments: 02/23/2019 10:39 Ginny Rene RN bilat Cyst ([id number]). Comments: 02/23/2019 10:40 Ginny Rene RN left foot with nerve removed Tonsillectomy (690984419). Social History Electronic Cigarette/Vaping Assessment Electronic Cigarette [...] more Comment: quit 1986 - 02/23/2019 10:45 Ginny Sams RN Electronic Cigarette/Vaping 02/23/2019 Electronic Cigarette Use: Never . Physical Examination VS/Measurements Vital Signs (last 24 hrs) Last Charted Heart Rate Peripheral L 56bpm (MAR 08 06:00) Resp Rate 16 br/min (MAR 08 06:) SBP 124 mmHg (MAR 08 06:00) DBP 81 mmHg (MAR 08 06:00) SpO2 99 % (MAR 08 06:) General: Alert and oriented, No acute distress. [...] Oriented. Review / Management Laboratory Results Plan [place] [employer]esthesiologists#(ASA) physical status classification: Class [...] 03/08/2019 07:26 EST] Flip Morales DO Normal [facility] Inpatient Patient Summaryon 03-08-2019 Inpatient [place] [address] Patient Discharge Instructions Name: MALOU DUBON : 1955 Patient Address: [address] [place] [address] Primary Care Provider: Name: ANTON HINES After you are discharged if you find you have any questions, please, call [phone] ext [phone] to speak to a nurse. Discharge Diagnosis: Epicondylitis, lateral, right Prescription Information: If you have been given a prescription for narcotics, seek immediate medical attention if you have any difficulty breathing or any sudden status changes such as confusion and sleepiness. If you or anyone you know is experiencing suicidal thoughts, mental health, alcohol and/or drug addiction problems; contact the [facility] 27/09 Crisis Hotline -Text 4HDIO zc 790584. If you received any narcotics, sedation, or [...] business decisions or sign any legal documents [facility] would like to thank you for allowing us to assist you with your healthcare needs. The following includes patient education materials and information regarding your injury/illness. MALOU DUBON has been given the following list of follow-up instructions, prescriptions, and patient education materials: Follow-up Instructions With: Address: When: Vinay Santos [address] [place] [address], [address] [address] Business (1) 03/23/2019 11:00 AM Medications During the [...] or fever, please call Dr. Marie at [phone]. 6.) Keep dressings in place, clean and [...] for Disease Control and Prevention November 2013 [facility] MAGR Intraoperative Recordon 03-08-2019 MAGR Intraoperative Record MAGR Intra-Op Record Summary Primary Physician: DAMIAN MARIE Finalized Date/Time: 03/08/19 14:24:45 Pt. Name: MALOU DUBON/Sex: 1955 MALE Med Rec #: [id number] Physician: DAMIAN MARIE Financial #: [id number] Pt. Type: D Room/Bed: / Admit/Disch: 03/08/19 [...] Attendee DAMIAN MARIE David DO McKenna RN, Jennifer Role Performed Surgeon - Primary Anesthesiologist of [employer] Record Time In 03/08/19 07:34:00 03/08/19 07:34:00 03/08/19 07:34:00 Time Out 03/08/19 08:40:00 03/08/19 08:40:00 03/08/19 08:40:00 Procedure Olecranon Olecranon Olecranon Bursectomy(Right) Bursectomy(Right) Bursectomy(Right) Last Modified By: Kavon HUNTER, Noy Jacobson RN, Noy Kelley RN 03/08/19 09:31:06 03/08/19 09:31:06 03/08/19 09:31:06 Entry 4 Entry 5 Case Attendee Roxana ORTIZ, Milagro Yeung CST Role Performed Scrub Personnel Supervisor Coating Time In 03/08/19 07:34:00 03/08/19 07:34:00 Time Out 03/08/19 08:40:00 03/08/19 08:40:00 Procedure Olecranon Olecranon Bursectomy(Right) Bursectomy(Right) Last Modified By: Kavon HUNETR, Noy Jacobson RN, Noy 03/08/19 09:31:06 03/08/19 [...] Unfinalizing 03/08/19 14:21 PATRICA Modify Pick List [facility] 0 [facility] PACU Record MAGR PACU Record [place] [facility] Primary Physician: DAMIAN MARIE Finalized Date/Time: 03/08/19 09:28:03 Pt. Name: MALOU DUBON/Layla: 1955 MALE Med Rec #: [id number] Physician: DAMIAN MARIE Financial #: [id number] Pt. Type: D Room/Bed: / Admit/Disch: 03/08/19 [...] Signed By: Anna Pond RN 03/08/19 09:28 [facility] Postoperative Recordon 03-08-2019 MAGR Postoperative Record MAGR Phase II Record Summary Primary Physician: DAMIAN MARIE Finalized Date/Time: 03/08/19 10:55:41 Pt. Name: MALOU DUBON JEREMY Todd/Sex: 1955 MALE Med Rec #: [id number] Physician: DAMIAN MARIE Financial #: [id number] Pt. Type: D Room/Bed: / Admit/Disch: 03/08/19 05:40:00 - Institution: [facility] II Case Times MAGR Pre-Care Text: Patient [...] Signed By: Anna Pond RN 03/08/19 10:55 [facility] Preoperative Recordon 0 03-08-2019 MAGR Preoperative Record MAGR Pre-Op Record Summary Primary Physician: DAMIAN MARIE Finalized Date/Time: 03/08/19 09:42:36 Pt. Name: MALOU DUBON /Sex: 1955 MALE Med Rec #: [id number] Physician: DAMIAN MARIE Financial #: [id number] Pt. Type: D Room/Bed: / Admit/Disch: 03/08/19 [...] Signed By: Noy Jacobson RN 03/08/19 09:42 [facility] Patient Handouton 03-08-2019 Patient Handout Outpatient Shoulder [...] or fever, please call Dr. Marie at [phone]. 6.) Keep dressings in place, clean and [...] to the nearest hospital's emergency services department [facility] Progress Note - Nurseon 02-06 Progress Note - Nurse Spoke with pt regarding arrival time of 0600 and NPO status after midnight on 2019. Verbalized understanding. 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 Verbalized understanding. [Electronically Signed on: 03/05/2019 09:48 EST] Gunjan Wiley RN [Verified on: 03/05/2019 09:48 EST] Gunjan Wiley RN [facility] Coding Summaryon 02-26-2019 Coding Summary CODING DATE: 019 [facility] STATUS: Home PAYOR: Medicaid HMO ADMIT DX: [...] Katie Riggins Date Saved: 02/26/2019 01:56 pm [facility] Provider Orderson 02-26-2019 Provider Orders [id number]#1.00[facility] TIFF [facility] .Auto Diff 1on 02-23-2019 Auto Eagle % 11 % Normal 03-18 [facility] Comment on above: Performed By: #### 7 933333, [id number], [id number] #### [facility] (DEFAULT) [address] [place] [address] 06999 Baso Abs# 0.0 x10 Normal 0.0-0.2 [facility] Comment on above: Performed By: #### 7 112445, [id number], [id number] #### [facility] (DEFAULT) [address] [place] [address] 82399 Basophils/100 WBC (Bld) 0.4 % Normal 0.2-2.0 [facility] Comment on above: Performed By: #### 7 269244, [id number], [id number] #### [facility] (DEFAULT) [address] [place] [address] 72153 Eos Abs# 0.2 x10 Normal 0.0-0.4 [facility] Comment on above: Performed By: #### 7 362534, 09091092, [id number] #### [facility] (DEFAULT) [address] [place] [address] 24305 Eosinophils/100 WBC (Bld) 2.2 % Normal 0.9-4.0 [facility] Comment on above: Performed By: #### 7 950347, 78067987, [id number] #### [facility] (DEFAULT) [address] [place] [address] 40489 Lymphocytes (Bld) [#/Vol] 1.7 x10 Normal 1.3-2.9 [facility] Comment on above: Performed By: #### 7 289073, 77364486, [id number] #### [facility] (DEFAULT) [address] [place] [address] 18008 Lymphocytes/100 WBC (Bld) 21 % Normal 14-48 [facility] Comment on above: Performed By: #### 7 695945, 25751058, [id number] #### [facility] (DEFAULT) [address] [place] [address] Eagle Abs# 0.9 x10 High 0.0-0.8 [facility] Comment on above: Performed By: #### 7 577558, 53651406, [id number] #### [facility] (DEFAULT) [address] [place] [address] Neut Abs# 5.3 x10 Normal 1.5-9.2 [facility] Comment on above: Performed By: #### 7 481261, 62913117, [id number] #### [facility] (DEFAULT) [address] [place] [address] 93907 Neutrophils/100 WBC (Bld) 65 % Normal 44-88 [facility] Comment on above: Performed By: #### 7 107762, 29831964, [id number] #### [facility] (DEFAULT) [address] [place] [address] Standardon 02-23-2019 eGFR Non AA >60 [facility] Comment on above: Performed By: #### 7 395152, 51421247, [id number] #### [facility] (DEFAULT) [address] [place] [address] 93881 eGFR AA >60 [facility] Comment on above: Result Comment: Build And Deployment Engineer fabien Kidney disease could be indicated at eGFRs of less than 60 ml/min/1.73m2. Kidney Failure is indicated at less than 15 ml/min/1.73m2 Performed By: #### 7 178105, 24607069, [id number] #### [facility] (DEFAULT) [address] [place] [address] 82727 Anion gap [Moles/Vol] 13.0 mmol/L Normal 5.0-19.0 [facility] Comment on above: Performed By: #### 7 985876, 16578125, [id number] #### [facility] (DEFAULT) [address] [place] [address] 47553 Calcium [Mass/Vol] 8.7 mg/dL Low 8.9-10.3 [facility] Comment on above: Performed By: #### 7 011464, 43612069, [id number] #### [facility] (DEFAULT) [address] [place] [address] 74951 Chloride [Moles/Vol] 107 mmol/L Normal 101-111 [facility] Comment on above: Performed By: #### 7 396489, 33029335, [id number] #### [facility] (DEFAULT) [address] [place] [address] 34897 CO2 [Moles/Vol] 22 mmol/L Normal 21-32 [facility] Comment on above: Performed By: #### 7 533081, 57577161, [id number] #### [facility] (DEFAULT) [address] [place] [address] 94172 Creatinine [Mass/Vol] 1.18 mg/dL Normal 0.90-1.30 [facility] Comment on above: Performed By: #### 7 641661, 42546710, [id number] #### [facility] (DEFAULT) [address] [place] [address] 25333 Glucose [Mass/Vol] 106.0 mg/dL Normal 74.0-118.0 [facility] Comment on above: Performed By: #### 7 226858, 47124165, [id number] #### [facility] (DEFAULT) [address] [place] [address] 25083 Osmolality [Osmolality] 277 mOsm/L [facility] Comment on above: Performed By: #### 7 822136, 03353129, [id number] #### [facility] (DEFAULT) [address] [place] [address] 80083 Potassium [Moles/Vol] 4.0 mmol/L Normal 3.6-5.1 [facility] Comment on above: Performed By: #### 7 542702, 61828624, [id number] #### [facility] (DEFAULT) [address] [place] [address] Sodium [Moles/Vol] 138.0 mmol/L Normal 136.0-144.0 [facility] Comment on above: Performed By: #### 7 990236, 45085364, [id number] #### [facility] (DEFAULT) [address] [place] [address] 58544 Urea nitrogen [Mass/Vol] 16 mg/dL Normal 8-26 [facility] Comment on above: Performed By: #### 7 311025, 47440892, [id number] #### [facility] (DEFAULT) [address] [place] [address] Urea nitrogen/Creatinine [Mass ratio] 14.0 mg/mg Normal 4.6-16.2 [facility] Comment on above: Performed By: #### 7 302942, 61975941, [id number] #### [facility] (DEFAULT) [address] [place] [address] 56276 CBC w/ Auto Diffon 9 Erythrocyte distribution width (RBC) [Ratio] 12.8 % Normal 11.5-15.0 [facility] Comment on above: Performed By: #### 7 538534, 03376262, [id number] #### [facility] (DEFAULT) [address] [place] [address] 73456 Hematocrit (Bld) [Volume fraction] 42.9 % Normal 34.8-51.9 [facility] Comment on above: Performed By: #### 7 013241, 02313051, [id number] #### [facility] (DEFAULT) [address] [place] [address] 62985 Hemoglobin (Bld) [Mass/Vol] 14.4 g/dL Normal 11.8-17.7 [facility] Comment on above: Performed By: #### 7 881304, 13329467, [id number] #### [facility] (DEFAULT) [address] [place] [address] Man Diff? Auto Normal [facility] Comment on above: Performed By: #### 7 672633, 85453037, [id number] #### [facility] (DEFAULT) [address] [place] [address] 66302 MCH (RBC) [Entitic mass] 30 pg Normal 24-34 [facility] Comment on above: Performed By: #### 7 020413, 07099401, [id number] #### [facility] (DEFAULT) [address] [place] [address] 28571 MCHC (RBC) [Mass/Vol] 34 g/dL Normal 26-37 [facility] Comment on above: Performed By: #### 7 233577, 76607747, [id number] #### [facility] (DEFAULT) [address] [place] [address] 83964 MCV (RBC) [Entitic vol] 88 fL Normal 81-100 [facility] Comment on above: Performed By: #### 7 358077, 13810576, [id number] #### [facility] (DEFAULT) [address] [place] [address] 12075 Platelet mean volume (Bld) [Entitic vol] 9.8 fL Normal 6.3-10.2 [facility] Comment on above: Performed By: #### 7 615443, 11272257, [id number] #### [facility] (DEFAULT) [address] [place] [address] 28655 Platelets (Bld) [#/Vol] 253 x10 Normal 138-427 [facility] Comment on above: Performed By: #### 7 777868, 94655900, [id number] #### [facility] (DEFAULT) [address] [place] [address] 52564 RBC (Bld) [#/Vol] 4.86 x10 Normal 3.70-5.30 [facility] Comment on above: Performed By: #### 7 325188, 37630949, [id number] #### [facility] (DEFAULT) [address] [place] [address] 58018 WBC (Bld) [#/Vol] 8.2 x10 Normal 3.5-10.5 [facility] Comment on above: Performed By: #### 7 138618, 50326662, [id number] #### [facility] (DEFAULT) [address] [place] [address] SURGICAL PATHOLOGYon 018 SURGICAL PATHOLOGY AMENDED Speci [facility] #: [id number] Physician: CRISTOBAL MORA M.D. 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 The dysplasia ispredominantly low-grade, characterized by enlarged, hyperchromatic nucleiwith stratification. Focally, as you note, there are areas with increasedarchitectural complexity, including a cribriform appearance, in keepingwith high-grade dysplasia. In areas adjacent to the conventional-typeadenoma tous dysplasia is villiform proliferation with prominent,superficial crypt [...] hesitate tocontact the GI Consultation Service at [phone] with questions or ifadditional follow up information becomes available. This case was reviewedin conjunction with the GI pathology fellow, Esther Rodriguez D.O.JULIO/PHILLIP/annita/01-03-2018T his report is being amended to reflect a change in the Final Diagnosisfield. The change is as follows: outside case number corrected to [id number] [id number]. Dr. Mora was notified of this change via fax on 01-05-2018.JULIO/annita/ Mariaa Rodriguez M.D.(Electronic Signature) SPECIMEN SUBMITTEDA: 4 SLIDES [id number] CLINICAL DATABlood in stool.Patient ID #: Date of Report: 01/05/2018Date of Procedure: 01/03/2018Date of Receipt: 01/03/2018Submitted by: CRISTOBAL MORA M.D.Location: Diagnostic interpretation performed at [facility], [address] [place] [address]. Normal [facility] Comment on above: Performed By: #### S ####See report for performing lab information. Vital Signs Date Time Vital Sign Value Performing Clinician Facility 08-23-2023 12:40-0400 Blood Pressure Location [facility] 08-23-2023 12:40-0400 Body temperature 97.88 [degF] NOY RIDER [facility] 08-23-2023 12:40-0400 Diastolic blood pressure 84 mm[Hg] NOY ABRAMSRY [facility] 08-23-2023 12:40-0400 Heart rate 70 /min NOY ABRAMSRY [facility] 08-23-2023 12:40-0400 Systolic blood pressure 128 mm[Hg] NOY RIDER [facility] 07-28-2023 13:55-0400 Blood Pressure Location Angel Link [facility] 07-28-2023 13:55-0400 Diastolic blood pressure 64 mm[Hg] Angel Link [facility] 07-28-2023 13:55-0400 Heart rate 60 /min Angel Link [facility] 07-28-2023 13:55-0400 SaO2% (BldA) [Mass fraction] 97 % Angel Link [facility] 07-28-2023 13:55-0400 Systolic blood pressure 110 mm[Hg] Angel Link [facility] 08-10-2022 14:56-0400 Body temperature 98.06 [degF] [place] Valadez [facility] 08-10-2022 14:56-0400 Diastolic blood pressure 82 mm[Hg] [facility] Valadez [facility] 08-10-2022 14:56-0400 Heart rate 55 /min [facility] Valade[facility] 08-10-2022 14:56-0400 Respiratory rate 18 /min [facility] Valade[facility] 08-10-2022 14:56-0400 SaO2% (BldA) [Mass fraction] 99 % [facility] Valade[facility] 08-10-2022 14:56-0400 Systolic blood pressure 127 mm[Hg] [facility] Encounters Encounter Date Encounter Type Care Provider Facility Start: 07-23-2024 ambulatory Yogesh Johnson Facility :[facility] Start: 08-23-2023 End: 08-23-2023 Lab Drop off NOY RIDER [facility] Start: 08-23-2023 ambulatory NOY RIDER Facili ty: [facility] Start: 08-23-2023 End: 08-23-2023 Patient encounter procedure NOY RIDER [facility] Start: 07-28-2023 End: 07-28-2023 ambulatory DO Angel Valencia Link Facility:[facility] Start: 07-28-2023 End: 07-28-2023 Patient encounter procedure Angel Valencia Link [facility] Start: 07-28-2023 End: 07-28-2023 ambulatory Yogesh Johnson Facility:[facility] Start: 07-26-2023 End: 07-26-2023 ambulatory Yogesh Johnson Facility:[facility] Start: 05-10-2023 End: 05-10-2023 ambulatory NOY RIDER Facility:[facility] Start: 03-02-2023 ambulatory Yogesh Johnson Facility :[facility] Start: 01-14-2023 ambulatory Yogesh Johnson Facility:[facility] Start: 01-13-2023 End: 01-13-2023 ambulatory Yogesh Johnson Facility:[facility] Start: 08-10-2022 End: 08-10-2022 Emergency department patient visit [facility] Val[facility] Start: 07-05-2022 End: 08-04-[address] ANTON [...] Performed By: #### U MICRO, ERUR #### [facility] [address] [place] [address] Dr. Gray Hunter None (qualifier value) Angel Link Immunizations Immunization Date Immunization Notes Care Provider Fa cility NEGATED: Highlighted row has not occurred!07-28-2023 influenza virus vaccine, unspecified formulation Angel Link [facility] NEGATED: Highlighted row has not occurred!01-13-2023 influenza virus vaccine, unspecified formulation Angel Link [facility] Payers Date Payer Category Payer Medicaid [id number] 1959 Unknown [id number] 1955 Unknown [id number] 2.16.84 0.1.035474.3.579.2.593 1955 Unknown [id number] 2..84 0.1.150652.3.579.2.593 1955 Unknown [id number] 2..84 0.1.642683.3.579.2.59 1955 Unknown [id number] 2.16.84 0.1.738202.3.579.2.593 1955 Unknown [id number] 2.16.84 0.1.019115.3.579.2.593 1955 Unknown [id number] 2.16.84 0.1.727875.3.579.2.593 1955 Unknown [id number] 2.16.84 0.1.921330.3.579.2.593 1955 Unknown [id number] 2.16.84 0.1.748701.3.579.2.593 1955 Unknown [id number] 2.16.84 0.1.101575.3.579.2.593 1955 Unknown [id number] 2.16.84 0.1.238670.3.579.2.593 1955 Unknown [id number] 2.16.84 0.1.041632.3.579.2.593 1955 Unknown [id number] 2.16.84 0.1.297038.3.579.2.593 1955 Unknown [id number] 2.16.84 0.1.167238.3.579.2.593 1955 Unknown [id number] 2.16.8 40.1.855198.3.579.2.727 1955 Unknown [id number] 2.16.8 40.1.080277.3.579.2.727 1955 Unknown [id number] 2.16.8 40.1.775532.3.579.2.727 1955 Unknown [id number] 2.16.8 40.1.447140.3.579.2.727 1955 Unknown [id number] 2.16.8 40.1.704600.3.579.2.727 1955 Unknown [id number] 2.16.8 40.1.558507.3.579.2.727 1955 Unknown [id number] 2.16.8 40.1.680006.3.579.2.727 1955 Unknown [id number] 2.16.8 40.1.273224.3.579.2.727 Social History Date Type Detail Facility Tobacco [facility] Comment on above: denies Tobacco smoking status No Smokin g Status Entered [facility] Sex Assigned At Male [facility] Start: 07-28-2023 End: 08-23-2023 Tobacco smoking status Ex-smoker (finding) [facility] Tobacco smoking status Never [facility] Functional Status Date Assessment Result Facility 08-23-2023 Functional Status N/A [facility] 07-28-2023 Functional Status N/A [facility] 08-10-2022 Functional Status N/A [facility] Hospital Discharge instructions 08-23-2023 Note Date & Type Note Facility 08-23-2023 Hospital Discharg e instructions Patient Education 08/23/2023 13:18:20 Erectile Dysfunction Erectile Dysfunction Erectile dysfunction (ED) is the inability to get or keep an erection in order to have sexual intercourse. ED is considered a symptom of an underlying disorder and is not considered a disease. ED may include: Inability to get an erection. Lack of enough hardness of the erection to allow penetration. Loss of erection before sex is finished. What are the causes? This condition may be caused by: Physical causes, such as: ?Artery problems. This may include heart disease, high blood pressure, atherosclerosis, and diabetes. ?Hormonal problems, such as low testosterone. ?Obesity. ?Nerve problems. This may include back or pelvic injuries, multiple sclerosis, Parkinson's disease, spinal cord injury, and stroke. Certain medicines, such as: ?Pain relievers. ?Antidepressants. ?Blood pressure medicines and water pills (diuretics). ?Cancer medicines. ?Antihistamines. ?Muscle relaxants. Lifestyle factors, such as: ?Use of drugs such as marijuana, cocaine, or opioids. ?Excessive use of alcohol. ?Smoking. ?Lack of physical activity or exercise. Psychological causes, such as: ?Anxiety or stress. ?Sadness or depression. ?Exhaustion. ?Fear about sexual performance. ?Guilt. What are the signs or symptoms? Symptoms of this condition include: Inability to get an erection. Lack of enough hardness of the erection to allow penetration. Loss of the erection before sex is finished. Sometimes having normal erections, but with frequent unsatisfactory episodes. Low sexual satisfaction in either partner due to erection problems. A curved penis occurring with erection. The curve may cause pain, or the penis may be too curved to allow for intercourse. Never having nighttime or morning erections. How is this diagnosed? This condition is often diagnosed by: Performing a physical exam to find other diseases or specific problems with the penis. Asking you detailed questions about the problem. Doing tests, such as: ?Blood tests to check for diabetes mellitus or high cholesterol, or to measure hormone levels. ?Other tests to check for underlying health conditions. ?An ultrasound exam to check for scarring. ?A test to check blood flow to the penis. Doing a sleep study at home to measure nighttime erections. How is this treated? This condition may be treated by: Medicines, such as: ?Medicine taken by mouth to help you achieve an erection (oral medicine). ?Hormone replacement therapy to replace low testosterone levels. ?Medicine that is injected into the penis. Your health care provider may instruct you how to give yourself these injections at home. ?Medicine that is delivered with a short applicator tube. The tube is inserted into the opening at the tip of the penis, which is the opening of the urethra. A tiny pellet of medicine is put in the urethra. The pellet dissolves and enhances erectile function. This is also called MUSE (medicated urethral system for erections) therapy. Vacuum pump. This is a pump with a ring on it. The pump and ring are placed on the penis and used to create pressure that helps the penis become erect. Penile implant surgery. In this procedure, you may receive: ?An inflatable implant. This consists of cylinders, a pump, and a reservoir. The cylinders can be inflated with a fluid that helps to create an erection, and they can be deflated after intercourse. ?A semi-rigid implant. This consists of two silicone rubber rods. The rods provide some rigidity. They are also flexible, so the penis can both curve downward in its normal position and become straight for sexual intercourse. Blood vessel surgery to improve blood flow to the penis. During this procedure, a blood vessel from a different part of the body is placed into the penis to allow blood to flow around (bypass) damaged or blocked blood vessels. Lifestyle changes, such as exercising more, losing weight, and quitting smoking. Follow these instructions at home: Medicines Take wvpg-ppv-qxkszzd and prescription medicines only as told by your health care provider. Do not increase the dosage without first discussing it with your health care provider. If you are using self-injections, do injections as directed by your health care provider. Make sure you avoid any veins that are on the surface of the penis. After giving an injection, apply pressure to the injection site for 5 minutes. Talk to your health care provider about how to prevent headaches while taking ED medicines. These medicines may cause a sudden headache due to the increase in blood flow in your body. General instructions Exercise regularly, as directed by your health care provider. Work with your health care provider to lose weight, if needed. Do not use any products that contain nicotine or tobacco. These products include cigarettes, chewing tobacco, and vaping devices, such as e-cigarettes. If you need help quitting, ask your health care provider. Before using a vacuum pump, read the instructions that come with the pump and discuss any questions with your health care provider. Keep all follow-up visits. This is important. Contact a health care provider if: You feel nauseous. You are vomiting. You get sudden headaches while taking ED medicines. You have any concerns about your sexual health. Get help right away if: You are taking oral or injectable medicines and you have an erection that lasts longer than 4 hours. If your health care provider is unavailable, go to the nearest emergency room for evaluation. An erection that lasts much longer than 4 hours can result in permanent damage to your penis. You have severe pain in your groin or abdomen. You develop redness or severe swelling of your penis. You have redness spreading at your groin or lower abdomen. You are unable to urinate. You experience chest pain or a rapid heartbeat (palpitations) after taking oral medicines. These symptoms may represent a serious problem that is an emergency. Do not wait to see if the symptoms will go away. Get medical help right away. Call your local emergency services (911 in the [place] Do not drive yourself to the hospital. Summary Erectile dysfunction (ED) is the inability to get or keep an erection during sexual intercourse. This condition is diagnosed based on a physical exam, your symptoms, and tests to determine the cause. Treatment varies depending on the cause and may include medicines, hormone therapy, surgery, or a vacuum pump. You may need follow-up visits to make sure that you are using your medicines or devices correctly. Get help right away if you are taking or injecting medicines and you have an erection that lasts longer than 4 hours. This information is not intended to replace advice given to you by your health care provider. Make sure you discuss any questions you have with your health care provider. Document Revised: 05/20/2021 Document Reviewed: 05/20/2021 [employer] Patient Education 2022 [employer]Box. Follow Up Care 05/10/2023 14:05:45 With:ADRY MONTANO, NOY Jackson, URL Address: [address] [place] [phone] When: Unknown Comments:1 yr w/ PSA [facility] Clinical Note 05-10-2023 Note Date & Type [...] E&M of New Patient Moderate 45-59 Min 25575 Urnls Dip Stick Auto w/o Microscopy POC 89090 2. Prostate cancer screening (Z12.5: Encounter for screening for malignant neoplasm of prostate) PSA 03/23/22 - 1.82 no family hx prostate ca will update PSA now, order given. advised to get done prior to next appt. Ordered: E&M of New Patient Moderate 45-59 Min 78124 PSA Screen, Total 3. BPH with obstruction/lower [...] daily. risks/benefits/side effects (more content not included)... [facility] Comment on above: Result Comment: Elec tronically [...] told by your health care provider. Take yzmd-tiz-gkcmzvv and prescription medicines only as told by [...] provider. Document Revised: 07/09/2019 Document Reviewed: 07/09/2019 [employer] Patient Education 2022 [employer] Follow Up Care 08/10/2022 14:53:58 With:Flip Hidalgo Address: [address] [place] [address] Business (1) When:08/13/2022 16:33:09 [facility] Evaluation + Plan note Note Date & Type Note Facility Evaluation + Plan note No data available for this section [facility] Evaluation + Plan note Laboratory Note Date & Type Note Facility Evaluation + Plan note Future Appointments Appointment Date:08/23/2023 01:00:00 PM Scheduled Provider:NOY RIDER PA-C Location:[facility] Appointment Type:URO Office Visit Appointment Date:07/23/2024 11:00:00 AM Scheduled Provider: Location:[facility] Appointment Type: Medicare Wellness Subsequent Future Scheduled TestsHCV Antibody RFX to Quant PCR 07/28/23Comprehensive Metabolic Panel 07/28/23 [facility] Evaluation + Plan note Laboratory Note Date & Type Note Facility Evaluation + Plan note Future Appointments Appointment Date:07/23/2024 11:00:00 AM Scheduled Provider: Location:[facility] Appointment Type: Medicare Wellness Subsequent Diagnostic Tests PendingPSA Screen, Total 08/23/23 Future Scheduled TestsHCV Antibody RFX to Quant PCR 07/28/23Comprehensive Metabolic Panel 07/28/23 [facility] Evaluation + Plan note Laboratory Note Date & Type Note Facility Evaluation + Plan note Future Appointments Appointment Date:07/23/2024 11:00:00 AM Scheduled Provider: Location:[facility] Appointment Type: Medicare Wellness Subsequent Future Scheduled TestsHCV Antibody RFX to Quant PCR 07/28/23Comprehensive Metabolic Panel 07/28/23 [facility] Hospital Discharge instructions Note Date & Type Note Facility Hospital Discharge instructions No data available for this section [facility] Progress note Note Date & Type Note Facility Progress note No data available for this section [facility] Summary Purpose Family History No Family History Records FoundNo Family History Records FoundNo Family History Records Found No data available for this section No Family History Records Found No data available for this section No data available for this section Advance Directives No Advanced Directives Records FoundNo [...] 03/08/2019 13:22 EST] Flip Morales DO Note [facility] SURGERY Clinical Discharge Summary PERSON INFORMATION Name MALOU DUBON Age 63 Years 1955 Sex MALE Language Syrian PCP ANTON HINES Marital Status [facility] Service Ambulatory Surgery Acct# Arrival 03/08/2019 05:40:00 Visit Reason SURGERY - RIGHT LATERAL EPICONDYLECTOMY Acuity LOS 021 22:23 Address: [address] [place] [id number] Comment: PROVIDER INFORMATION VITALS INFORMATION Vital Sign [...] (more content not included)... Hospital Course Note [facility] SURGERY Clinical Discharge Summary PERSON INFORMATION Name MALOU DUBON Age 63 Years 1955 Sex MALE Language Syrian PCP ANTON HINES Marital Status Med Service Ambulatory Surgery Acct# Arrival 03/08/2019 05:40:00 Visit Reason SURGERY - RIGHT LATERAL EPICONDYLECTOMY Acuity LOS 021 22:23 Address: [address] [place] [id number] Comment: PROVIDER INFORMATION VITALS INFORMATION Vital Sign [...] section and content) DATE CREATED AUTHOR 02/12/2018 [facility] DATE CREATED AUTHOR AUTHOR'S ORGANIZ ATION 03/15/2019 [facility] DATE CREATED AUTHOR AUTHOR'S ORGANIZ ATION 08/15/2022 [facility] DATE CREATED AUTHOR AUTHOR'S ORGANIZ ATION 08/21/2023 [facility] (unrecognized sect ion and content) No Status Records FoundNo Status Records FoundNo Status Records Found Patient Care team informatio n (unrecognized section and content) Personnel Name: Yogesh Johnson MD Address: Address: [facility] [place], [place] [address] Personnel Name: Angel Powell DO Address: Address: [address] [place] [address] Personnel Name: Angel Powell DO Address: Address: [address] [place] [address] Personnel Name: Angel Powell DO Address: Address: [address] [place], [place] [address] FOR RECORDS PERTAINING TO PATIENTS WHO ARE [...] BE BASED ON THE PRIMARY CLINICAL RECORDS. [facility] provides no warranty or guarantee of the accuracy or completeness of information in this document.
--- NOTE | 2023-08-24 12:28 | ED_ITS ---
HPI - Extremity Problem General Chief complaint: Extremity Problem, Nontraumatic Stated complaint: LOWER EXTREMITY INJURY Time Seen by Provider: 08/24/23 12:00 Source: patient Mode of arrival: walk-in Limitations: no limitations History of Present Illness HPI Narrative: Patient presents ED complaining of right lower extremity pain. He noticed a couple of days ago an erythematous arlin on the inside of his right calf. He has tenderness to palpation over that area. No lymphangitis. No fevers. No shortness of breath or chest pain. 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 Alert and oriented no acute distress. He was concerned about a blood clot so he came in for evaluation. Related Data Home Medications ?Medication ?Instructions ?Recorded ?Confirmed doxycycline hyclate 100 mg capsule 100 mg PO Q24H 08/07/22 08/24/23 fluoxetine 20 mg tablet 30 mg PO DAILY 08/07/22 08/24/23 metoprolol tartrate 50 mg tablet 50 mg PO DAILY 08/07/22 08/24/23 topiramate 50 mg tablet 50 mg PO .night time 08/07/22 08/24/23 famotidine 20 mg tablet 20 mg PO DAILY 08/24/23 08/24/23 tamsulosin 0.4 mg capsule 0.4 mg PO Q24H 08/24/23 08/24/23 Previous Rx's ?Medication ?Instructions ?Recorded apixaban 5 mg (74 tabs) tablets in 5 mg PO BID #74 ea 08/24/23 a dose pack ([employer] DVT-PE Treat 30D Start) Allergies Allergy/AdvReac Type Severity Reaction Status Date / Time cephalexin [From Keflex] AdvReac Mild itching Verified 08/24/23 12:08 Review of Systems ROS Status of ROS 10 or more systems reviewed and unremark able except as noted in history and below PFSH PFSH Social History Smoking status: Former smoker Exam Narrative Exam Narrative: General: alert, no acute distress Cardiovascular: regular rate and rhythm, normal peripheral perfusion. Respiratory: Lungs CTA, respirations non labored. Extremities: no deformity, no trauma. 2 x 2 centimeter area of erythema in the right medial lower extremity with tenderness to palpation and some induration and firmness on palpation. No posterior calf pain. Normal distal pulses and sensation. No lymphangitis. Neurological: oriented x 4, LOC appropriate for age. Constitutional Vital Signs, click to edit/add: Last Vital Signs Temp 98.6 F 08/24/23 12:06 Pulse 74 08/24/23 13:43 Resp 18 08/24/23 13:43 BP 126/74 08/24/23 12:06 Pulse Ox 99 08/24/23 13:43 O2 Del Method Room Air 08/24/23 13:43 Course Vital Signs Vital signs: Vital Signs Temperature 98.6 F 08/24/23 12:06 Pulse Rate 53 L 08/24/23 12:06 Respiratory Rate 18 08/24/23 12:06 Blood Pressure 126/74 08/24/23 12:06 Pulse Oximetry 98 08/24/23 12:06 Oxygen Delivery Method Room Air 08/24/23 12:06 Temperature 98.6 F 08/24/23 12:06 Pulse Rate 74 08/24/23 13:43 Respiratory Rate 18 08/24/23 13:43 Blood Pressure 126/74 08/24/23 12:06 Pulse Oximetry 99 08/24/23 13:43 Oxygen Delivery Method Room Air 08/24/23 13:43 MDM - Extremity (Nontraumatic) MDM Narrative Medical decision making narrative: Patient's vascular study was positive for DVT on the right. Patient will be sent home with a starter pack of Eliquis. Please follow-up with family doctor next week concerning this. Return to ED if worsening symptoms. Return to ED certainly if there are any signs of shortness of breath syncope or chest pain. Patient expresses understanding and is comfortable care plan for home Differential Diagnosis Differential diagnosis: Likely cellulitis, superficial thrombophlebitis and deep vein thrombosis of lower extremity Medical Records Attestation: I reviewed the patient's medical records. Imaging Data Chest x-ray: Radiologist's impression: ITS Impressions Venous Doppler Study 08/24/23 12:15 IMPRESSION: 1. Small amount of deep vein thrombus within the gastrocnemius vein within the calf. Otherwise, the veins are clear. Electronically authenticated by: ALECIA GOODSON Date: 08/24/2023 13:40 Discharge Plan Discharge Stand Alone Forms: Portal Instructions Chief Complaint: Extremity Problem, Nontraumatic Clinical Impression: Deep vein thrombosis of lower extremity Patient Disposition: Home, Self-Care Time of Disposition Decision: 13:21 Mode of Transportation: Private Vehicle Prescriptions / Home Meds: Mikey Hyatt DVT-PE Treat 30D Start 5 mg (74 tabs) tablets,dose pack 5 mg PO BID Qty: 74 0RF No Action doxycycline hyclate 100 mg capsule 100 mg PO Q24H fluoxetine 20 mg tablet 30 mg PO DAILY metoprolol tartrate 50 mg tablet 50 mg PO DAILY topiramate 50 mg tablet 50 mg PO .night time tamsulosin 0.4 mg capsule 0.4 mg PO Q24H famotidine 20 mg tablet 20 mg PO DAILY Print Language: Greenlandic Instructions: Deep Vein Thrombosis (ED) Referrals: NIMESH BURT [Primary Care Provider] - 1 week Discharge Date/Time: 08/24/23 13:44
[2023-08-24 13:43] VITALS: PULSE 74; O2SAT 99
== END 2023-08-24 13:44 | disposition home or self-care (01) ==
PROVIDERS: Emergency Provider Emergency Medicine; PCP Family Medicine
DX: I82.461 Acute embolism and thrombosis of right calf muscular vein (principal); Z87.891 Personal history of nicotine dependence
CPT/HCPCS: 93971; 99284

== ENCOUNTER 2023-09-05 00:27 | Outpatient (RCR) | payer MEDICARE, MEDICAID, SELFPAY | END 2023-10-05 23:59 | disposition home or self-care (01) | LOC: MM 00:27 | PROVIDERS: PCP Family Medicine; Visit Provider Internal Medicine | DX: Z51.81 Encounter for therapeutic drug level monitoring (principal); Z79.01 Long term (current) use of anticoagulants ==